=== PATIENT | male | born 1980 | race Caucasian/White ===

== ENCOUNTER 2024-09-21 07:35 | Inpatient (IN) | payer BC, SELFPAY ==
[2024-09-21] VITALS (25 sets, daily range): BP systolic 85–142; BP diastolic 59–88; PULSE 81–104; RESP 16–24; TEMP 35.3–37.8; O2SAT 89–97; BMI 50.1
--- NOTE | 2024-09-21 07:55 | CRLHL7_ITS ---
For Patients: As a result of the Century Cures Act, medical imaging exams and procedure reports are released immediately into your electronic medical record. You may view this report before your referring provider. If you have questions, please contact your health care provider. INDICATION: Abdominal pain COMPARISON: Portions of a June 18, 2015 study. TECHNIQUE: CT examination of the abdomen and pelvis was performed following the uneventful intravenous administration of 150 cc of Isovue 370. Thin section axial images were obtained from the lung bases through the pubic symphysis. Oral contrast was not administered. Please note that all CT scans at this facility use dose modulation, iterative reconstruction, and/or weight-based dosing when appropriate to reduce radiation dose to as low as reasonably achievable. FINDINGS: LUNG BASES: The lung bases as visualized appear normal.The heart size is normal at the lung bases. LIVER/BILIARY SYSTEM:Enlarged fatty infiltrated liver.No focal mass or biliary ductal dilation. There is probably a faintly seen gallstone within the gallbladder. This was more apparent on the prior study. No evidence of acute cholecystitis or common duct obstruction. ADRENALS: Probably benign small adrenal nodules. Is slightly more prominent than previously. KIDNEYS, URETERS and BLADDER:Normal-sized kidneys. Urolithiasis but no evidence current or recent obstructive uropathy. The bladder is decompressed but otherwise unremarkable in appearance SPLEEN:Normal appearance. PANCREAS: Appears normal. RETROPERITONEUM and MESENTERY: There is mesenteric lymphadenopathy and a significant inflammatory process in the mesentery. A collection is identified in the central mesentery closely associated with a loop of small bowel, probably jejunum. The jejunum is dilated and thickened in this area. The collection measures 7.8 x 6.5 by 4.9 centimeters. There is also fluid and air identified elsewhere within the mesentery and a small amount of free intraperitoneal air. The findings are consistent with a perforated viscus, probably a loop of jejunum. Etiology is uncertain. Do not see a diverticulum or a mass. GASTROINTESTINAL SYSTEM: There is no evidence of diverticulitis, colitis, mechanical obstruction, or appendicitis. The small bowel as visualized appears normal. PELVIS: No mass or adenopathy. OSSEOUS STRUCTURES and ABDOMINAL WALL: There is an age-appropriate appearance of the osseous structures.No significant abdominal wall defect. OTHER: No free fluid or free air. I discussed the above findings with Dr. Lowe at 8:50 a.m. on September 21, 2024 Impression: : 1. Adenopathy, inflammatory change, free air, free fluid and collection in the central mesentery. The collection measures 7.8 x 6.5 x 4.9 centimeters. Of note, the collection does not appear to be thick walled as might be seen in an organized collection. This is adjacent to and probably arising from adjacent jejunum. The jejunum and this area is thickened and dilated but I do not directly seen underlying pathology such as a diverticulum or tumor. The exact etiology of the presumed perforated jejunum with adjacent collection is not visible on the exam. Surgical consultation is advised. 2. Other nonacute appearing findings as above Please note that all CT scans at this facility use dose modulation, iterative reconstruction, and/or weight-based dosing when appropriate to reduce radiation dose to as low as reasonably achievable. Dictated by Stuart Karimi MD @ 09/21/2024 8:54:42 AM (Electronically Signed)
--- NOTE | 2024-09-21 07:57 | ED.ABDPAIN ---
HPI - Abdominal Pain General Chief Complaint: Abdominal Pain Stated Complaint: stomach pain/vomiting Time Seen by Provider: 09/21/24 07:45 History of Present Illness HPI narrative: Patient is a 44-year-old gentleman who presents with diffuse abdominal pain has been worsening for the last week. Became more severe more localized to the left lower quadrant last night. He has had some vomiting but no change in his bowels. He has had anorexia. He has had history of kidney stones but no blood in his urine. No fevers no chills no night sweats. Patient is had no shortness of breath or chest pain. Patient has had similar instances in the past which he related to kidney stones. Patient takes only lovu-hpt-puwhnfe medications. No recent travel or sick contacts. Related Data Home Medications ?Medication ?Instructions ?Recorded ?Confirmed No Known Home Medications 09/21/24 09/21/24 Allergies Allergy/AdvReac Type Severity Reaction Status Date / Time No Known Drug Allergies Allergy Verified 09/21/24 07:46 Review of Systems Status of ROS Reports: 10 or more systems reviewed and unremarkable except as noted in History and below PFSH PFS Social History Smoking Status: Current every day smoker What tobacco products do you use: cigarettes How often do you have a drink containing alcohol: never AUDIT-C Alcohol total score: 0 Non-prescribed substance use: denies use service: No Exam Narrative: Exam Narrative: EXAM GENERAL: Patient appears moderately uncomfortable. EYES: No scleral icterus. ENT: Tympanic membranes and oropharynx normal. THYROID: no thyroid nodules or thyromegaly. LYMPH: No supraclavicular or cervical lymphadenopathy. SKIN: Visible skin seen during exam normal or with benign process only. EXT: No dependent lower extremity pedal edema. HEART: Regular rate and rhythm with no murmurs, rubs, or gallops. LUNGS: Clear to auscultation bilaterally with no crackles or wheezes. ABD: Distended with hypoactive bowel sounds diffusely tender but no rebound. PSYCH: Good eye contact, speech is not pressured. Const: Vital Signs, click to edit/add: Vital Signs - 24 hr 09/21/24 07:38 Temperature 96.3 F L Pulse Rate [Pulse Oximeter] 104 H Respiratory Rate 22 Blood Pressure [Ri ght Upper Arm] 132/80 Pulse Oximetry 97 Oxygen Delivery Me thod Room Air Course Course ED Course: Patient seen and examined. CT abdomen pelvis lactate lipase CBC CMP UA pending. Vital Signs Vital signs: Initial Vital Signs Temperature 96.3 F L 09/21/24 07:38 Temperature Source Temporal Artery Scan 09/21/24 07:38 Pulse Rate 104 H 09/21/24 07:38 Respiratory Rate 22 09/21/24 07:38 Blood Pressure 132/80 09/21/24 07:38 Blood Pressure Mean 97 09/21/24 07:38 Blood Pressure Position Sitting 09/21/24 07:38 Pulse Oximetry 97 09/21/24 07:38 Oxygen Delivery Method Room Air 09/21/24 07:38 Vital Signs Temperature 96.3 F L 09/21/24 07:38 Pulse Rate 104 H 09/21/24 07:38 Respiratory Rate 22 09/21/24 07:38 Blood Pressure 132/80 09/21/24 07:38 Pulse Oximetry 97 09/21/24 07:38 Oxygen Delivery Method Room Air 09/21/24 07:38 Temperature 96.3 F L 09/21/24 07:38 Pulse Rate 104 H 09/21/24 07:38 Respiratory Rate 22 09/21/24 07:38 Blood Pressure 132/80 09/21/24 07:38 Pulse Oximetry 97 09/21/24 07:38 Oxygen Delivery Method Room Air 09/21/24 07:38 MDM - Abdominal Pain MDM Narrative Medical decision making narrative: Patient is a 44-year-old gentleman with no abdominal surgery history who presents with worsening abdominal pain over the last week. Pain became more severe this morning. As result he presented to the emergency room where his white blood cell count is elevated. His CT of the abdomen pelvis shows a perforated jejunum with a collection of fluid and air in the mesentery. I did obtain blood cultures as well. Patient was fluid resuscitated. I did review the case with General surgery and they will be taking him to the operating room. 3.375 g of Zosyn given. Lab Data Labs: Lab Results 09/21/24 Range/Units 08:15 WBC 18.92 H (4.50-11.00) K/uL RBC 5.49 (4.30-5.90) m/uL Hgb 15.9 (13.5-17.5) gm/dL Hct 46.7 (37.0-53.0) % MCV 85 (80-100) fL MCH 29 (26-34) pg MCHC 34 (32-36) gm/dL RDW Coeff of Janell 13.2 (11.5-15.5) % Plt Count 342 (140-440) K/uL Neut % (Auto) 82.9 H (42.0-72.0) % Lymph % (Auto) 8.4 L (20-44) % [place] % (Auto) 7.0 (0.0-11.0) % Eos % (Auto) 0.1 (0.0-7.0) % Baso % (Auto) 0.3 (0.0-3.0) % Neut # (Auto) 15.70 H (1.7-7.0) K/uL Lymph # (Auto) 1.60 (0.90-2.90) K/uL [place] # (Auto) 1.30 H (0.00-0.90) K/UL Eos # (Auto) 0.00 (0.00-0.50) K/uL Baso # (Auto) 0.10 (0.00-0.30) K/uL Abs Immat Gran (auto) 0.20 (0.00-0.30) K/uL Imm/Tot Granulo (auto) 1.3 % Sodium 135 (135-149) mmol/L Potassium 3.3 L (3.6-5.1) mmol/L Chloride 98 (96-114) mmol/L Carbon Dioxide 24 (20-32) mmol/L Anion Gap 13 (7-15) mEq/L BUN 21 (5-24) mg/dL Creatinine 1.2 (0.5-1.5) mg/dL Estimated Creat Clear 76.92 Estimated GFR 76 ml/min Glucose 211 H (60-115) mg/dL Lactate 3.0 H (0.5-1.9) mmol/L Calcium 8.5 (8.4-10.6) mg/dL Total Bilirubin 1.9 H (0.1-1.5) mg/dL AST 57 H (12-35) U/L ALT 92 H (4-50) U/L Alkaline Phosphatase 135 (40-150) U/L Total Protein 7.0 (6.0-8.3) g/dL Albumin 3.6 (3.3-5.0) g/dL Lipase < 10 L (23-300) U/L Discharge Plan Discharge Clinical Impression: Perforation bowel Patient Disposition: XFER to OR Condition: Stable Prescriptions: No Action No Known Home Medications Follow Up/Referrals: Provider,Not a Local [Primary Care Provider] -
[2024-09-21 08:27] LABS: Basophils Percent Auto 0.3 % (0.0-3.0); Eosinophils Percent Auto 0.1 % (0.0-7.0); Hematocrit 46.7 % (37.0-53.0); Hemoglobin* 15.9 gm/dL (13.5-17.5); Immature Granulocytes Pct Auto 1.3 %; Lymphocytes Percent Auto 8.4 % (20-44); Mean Corpuscular HGB Conc 34 gm/dL (32-36); Mean Corpuscular Hemoglobin 29 pg (26-34); Mean Corpuscular Volume 85 fL (80-100); Neutrophils Percent Auto 82.9 % (42.0-72.0); Platelet Count* 342 K/uL (140-440); RDW Coefficient of Variation % 13.2 % (11.5-15.5); Red Blood Count 5.49 m/uL (4.30-5.90); White Blood Count* 18.92 K/uL (4.50-11.00)
[2024-09-21 08:32] LABS: Slide Review Reflex No
[2024-09-21 08:43] LABS: Albumin* 3.6 g/dL (3.3-5.0); Chloride* 98 mmol/L (96-114); Potassium* 3.3 mmol/L (3.6-5.1); Sodium* 135 mmol/L (135-149)
[2024-09-21 08:45] LABS: Blood Urea Nitrogen* 21 mg/dL (5-24); Creatinine* 1.2 mg/dL (0.5-1.5); Est. Creatinine Clearance* 76.92; Estimated Glomerular Filt Rate 76 ml/min
[2024-09-21 08:46] LABS: Alanine Aminotransferase* 92 U/L (4-50); Alkaline Phosphatase* 135 U/L (40-150); Anion Gap 13 mEq/L (7-15); Aspartate Amino Transferase* 57 U/L (12-35); Bilirubin Total* 1.9 mg/dL (0.1-1.5); Calcium* 8.5 mg/dL (8.4-10.6); Carbon Dioxide* 24 mmol/L (20-32); Glucose* 211 mg/dL (60-115)
[2024-09-21 08:50] LABS: Lipase* < 10 U/L (23-300)
[2024-09-21] MEDS: PIPERACILLIN/TAZOBACTAM 3.375 GM in 0.9 % SODIUM CHLORIDE Mini-bag 100 ML IVPB ×3 (09:11→23:24)
[2024-09-21 10:26] LABS: Appearance Urine Clear (Clear); Bilirubin Urine 1+ (Negative); Blood Urine Trace-lysed (Negative); Color Urine Orange (Yellow); Glucose Urine Negative (Negative); Ketones Urine Negative (Negative); Leukocyte Esterase Urine Negative (Negative); Nitrite Urine Negative (Negative); Protein Urine 1+ (Negative); Specific Gravity Urine <= 1.005 (1.000-1.030); Urobilinogen Urine >=8.0 (0.2-1.0); pH Urine 5.5 (5.0-8.5)
--- NOTE | 2024-09-21 10:33 | PM.GSHP ---
History of Present Illness History of Present Illness Date Seen: 09/21/24 Chief complaint: stomach pain/vomiting Narrative: Filiberto Porter is a 44 year old male who presented to the emergency department with worsening abdominal pain, nausea and vomiting. He says that the pain started in his lower abdomen and felt similar to a UTI. He describes it as an aching pain that would come and go. Denies any pain with urination or fevers. Over last 24 hours the pain moved from in his lower abdomen up to above his belly button. It also became more severe. He has had a decrease in appetite over the last week. Yesterday he started vomiting. He has been unable to keep down any liquids for the last 12 hours. He has been taking ibuprofen and Tylenol intermittently for the pain. No other medications on a regular basis. Patient does not see a doctor regularly. He smokes on a daily basis. Does suffer from obesity, no known history of diabetes. His past surgical history is positive for a hernia repair as an infant. Review of Systems Status of ROS: Reports: 10 or more systems reviewed and unremarkable except as noted in History and below [facility] Social History Smoking Status: Current every day smoker What tobacco products do you use: cigarettes How often do you have a drink containing alcohol: never AUDIT-C Alcohol total score: 0 Non-prescribed substance use: denies use service: No Meds Home Medications and Allergies Home Medications ?Medication ?Instructions ?Recorded ?Confirmed ?Type No Known Home Medications 09/21/24 09/21/24 History Allergies Allergy/AdvReac Type Severity Reaction Status Date / Time No Known Drug Allergies Allergy Verified 09/21/24 07:46 Exam Narrative: Exam Narrative: General: Alert and oriented, no acute distress. Nontoxic Respiratory: Maintained on room air, equal breath rise CV: Well perfused Abdomen: Obese abdomen, soft, some tenderness to palpation. No guarding or rebound. Const: Vital Signs, click to edit/add: Vital Signs - 24 hr 09/21/24 07:38 09/21/24 09:02 Temperature 96.3 F L 98.8 F Pulse Rate [Pulse Oximeter] 104 H 94 Respiratory Rate 22 18 Blood Pressure [Ri ght Upper Arm] 132/80 142/88 H Pulse Oximetry 97 94 Oxygen Delivery Me thod Room Air Room Air Results Results Labs: Leukocytosis (18). Lactate elevated at 3.00. Hyperglycemic, 211. Liver enzymes significant for elevated total bilirubin 1.[address] scan report/results: report reviewed and image reviewed Progress Note:A&P Assessment and plan (1) Perforation bowel: Status: Acute Assessment and Plan: Patient is a 44 male with past medical history significant for morbid obesity and daily smoking, who has clinical workup and exam consistent with perforated viscus. CT scan does show small amount of free air and fluid. There is a large inflammatory mass within the mesentery and thickened portion of jejunum, which could be a likely source. Recommend patient proceed emergently to the operating room. Risks and benefits of the procedure were discussed at length with the patient and his mom. This included, but was not limited to: Bleeding, infection, risk of injury to surrounding structures, the possibility of not identifying the source and need for additional procedures, postop complications such as pneumonia, [place], clot and stroke. Will plan for an exploratory laparotomy, possible small-bowel resection. The patient had time to ask all questions and concerns before agreeing to proceed. Plan -NPO, IV fluids -received IV Zosyn in the emergency department -emergently going to the OR for exploratory laparotomy
[2024-09-21 10:41] LABS: Amorphous Sediment Urine Few; Bacteria Urine Few; RBC Urine 0-2 (0-2); Squamous Epithelial Cell Urine Few (None-Few)
[2024-09-21] MEDS: LACTATED RINGERS 1000 ML 1,000 ML 125 ML IV ×3 (10:53→18:43)
--- NOTE | 2024-09-21 11:46 | W.PM.NB ---
Nerve Block Nerve Block Time Seen by Provider: 11:10 Date Seen: 09/21/24 Type of block requested by surgeon for post-operative analgesia: TAP Side: bilateral Time out performed: Yes Verification of patient name: Yes Verification of date of : Yes Site marking: site marked Name of person performing procedure: Remberto Potter Continuous monitoring Was continuous monitoring of O2 sat, B/P, pest control service representative, recorded every 15 minutes?: Yes Procedure Checklist: sterile prep, needles and gloves Ultrasound guided. Images saved: Yes Medications given in 5ml increments after negative aspiration: Marcaine %: 0.25 mL: 40 Needle gauge: 20 and Exparel mL: 20 Needle gauge: 20 Patient tolerated procedure well: Yes Additional comments: Injected in 5ml increments after negative aspiration Block Charges Block Charge (with Pro Fee): TAP Bilateral Use of Ultrasound Machine for Block: Yes- US Guidance/pain block
--- NOTE | 2024-09-21 12:54 | SUR.OPER ---
Per surgeon, update call was made to patients Aunt Machelle, update given on progress of surgery.
--- NOTE | 2024-09-21 15:14 | SUR.OPER ---
Per surgeon, update call was made to patients Aunt Machelle, update given on progress of surgery.
--- NOTE | 2024-09-21 15:58 | PM.GSPRC ---
Operative Note Date of procedure: 09/21/24 Pre-op diagnosis: Perforated viscus Post-op diagnosis: Perforated sigmoid colon Type of Procedure: 1. Exploratory laparotomy 2. Sigmoidectomy 3. End colostomy 4. Identification of perfusion with ICG Indications: Patient is a 44-year-old male who presented to the emergency department with worsening abdominal pain, nausea and vomiting. Clinical workup was obtained with CT scan showing intra-abdominal air and fluid consistent with perforated viscus. Risks and benefits of operative intervention were discussed at length with the patient. Risks included but was not limited to: Bleeding, infection, risk of damage to surrounding structures, possible need for additional procedures and postoperative complications such as pneumonia, pulmonary emboli or [place]. All questions and concerns were addressed with the patient agreeing to proceed. Procedure Description: After discussing the risks and benefits of the procedure, the patient signed informed consent.? The operative site was marked and the patient was brought to the operating room and placed on the operating table in supine position.? Care was taken to pad the patient's pressure points.?? The patient was then intubated by anesthesia.? A Adam was placed under sterile conditions? The operative site was then prepped and draped in the usual sterile fashion.? A time-out was then performed. A midline incision was made with a 10 blade scalpel. Dissection was carried through subcutaneous tissue with cautery. The fascia was incised sharply. The peritoneum was grasped and entered with Metzenbaum scissors. A large amount of purulent material was within the abdomen. The incision was extended superior and inferior to allow for adequate visualization. A large piece of omentum was draped over the small bowel. This was retracted cephalad. The Omni retractor was brought onto the operative field to assist with visualization. The small bowel was diffusely dilated with fibrinous exudate on various portions. Some inflammatory adhesions were present between inner loops of bowel. These were bluntly dissected free. Within the pelvis was an adherent piece of jejunum that was dilated and edematous. Upon breaking up the adhesions around this loop of small bowel an abscess cavity was entered and a large amount of purulent material removed. The small bowel was carefully examined and appeared intact. The inferior wall of the abscess cavity was inflamed sigmoid colon. There was some necrotic epiploic appendages and a perforation of the colon identified. The small bowel was then run from ligament of Treitz to ileocecal valve. There was fibrinous exudate throughout the small bowel. The proximal jejunum was dilated and erythematous, with no obvious necrosis and no perforation. No other areas of injury were identified. An NG tube was placed by Anesthesia. The anterior aspect of the stomach was palpated and NG tube placement confirmed. The small bowel was then packed in the right upper quadrant and I began dissecting out the sigmoid colon. The lateral abdominal wall inflammatory adhesions were carefully dissected free with cautery. I incised the lateral peritoneum and dissected up the white line of Toldt. Dissection was carried up to the descending colon. I was unable to visualize the splenic flexure secondary to the patient's body habitus. The peritoneum was incised into the pelvis to the superior rectum. Care was taken to stay close to the colon. The ureter was not visualized. A distal portion of the rectum that was free from disease was identified as a point of transection. Using cautery an incision was made on the mesenteric border. There was an abundant amount of epiploic fat on the colon. Some of this was removed to clear a segment for transection. A contour stapler was then brought onto the field and placed on the identified portion of the superior rectum. The stapler was fired and staple line of the rectum inspected. The tissue was healthy in appearance and hemostatic. The sigmoid colon was carefully retracted cephalad and the underlying mesentery ligated with the LigaSure device. A few pinpoint areas of bleeding were controlled with 3-0 Vicryl stitches. Any identified larger vessels of the mesentery were doubly ligated with 2-0 silk suture. In order to identify a proximal point of transection I decided to proceed with a perfusion study using ICG. The laparoscopic equipment was brought onto the operative field. The operating room lights were turned down and the camera turned on to identify ICG fluorescence. Anesthesia administered the indocyanine green. The colon then demonstrated perfusion up to a point just distal to the diseased colon that had been dissected free. A 3 0 silk stitch was placed on an adjacent epiploic appendage to identify the point of transection. A linear 80 mm stapler was then brought onto the operative field and the proximal aspect of the sigmoid colon transected. The specimen was marked with a stitch on the distal end and sent for pathology. Using 4 L of warm saline the abdomen was irrigated thoroughly. A place was marked on the patient's left lateral abdominal wall for creation of an ostomy. A Myles was used to grasp the overlying skin and a cheesh-na made with cautery. Dissection was carried down through subcutaneous tissue onto the anterior fascia. The anterior fascia was then incised in a cruciate manner. The underlying muscle was partially dissected and a cruciate incision was made on the posterior fascia. Due to the patient's body habitus, the colon was difficult to feed through the abdominal wall. A small Hiram wound retractor was placed in the incision, which allowed the proximal end of the transected bowel to be brought through the incision. The Hiram wound retractor was then cut and removed in 1 piece. The colon was secured in place with 3 interrupted 2 0 Vicryl stitches of colon wall to anterior fascia. Prior to maturation of the colostomy I closed the midline incision was closed with 2 running 0 Maxon sutures. The subcutaneous tissue was reapproximated with several interrupted 2 Vicryl stitches. The skin was closed with a skin stapler. Sterile dressings were applied. The staple line on the colostomy was removed. The colon was flushed to the skin, so unable to be brooked for eversion. It was matured circumferentially with several interrupted 3-0 Vicryl stitches. An ostomy appliance was then applied. ? The patient was then woken and transported to the recovery area in stable condition. ? The patient tolerated the procedure well. Findings: Sigmoid colon perforation with associated abscess. Modifier 22 applied to the case secondary to difficulty of the procedure and patient's morbid obesity. Anesthesia: GETA Surgeon: Shaista Frank MD Estimated blood loss (mL): 100 Additional Specimen Information: Sigmoid colon Condition: stable Disposition: PACU
--- NOTE | 2024-09-21 16:11 | P.ANES_ITS ---
Anesthesia Charges Start Date/Time Anesthesia Start Date: 09/21/24 Anesthesia Start Time: 10:53 Stop Date/Time Anesthesia Stop Date: 09/21/24 Anesthesia Stop Time: 16:00 Summary Emergency: INTELLIGENCE SENIOR SERGEANT Coding CPT Codes CPT Codes: ANESTH SURG UPPER ABDOMEN - 22790 ([id number]) P3 - PATIENT W/SEVERE SYS DISEASE, QZ - INTELLIGENCE SENIOR SERGEANT SVC W/O INSOLE RASPER BY Additional Codes: Summary - Emergency: INTELLIGENCE SENIOR SERGEANT ([id number])
--- NOTE | 2024-09-21 16:11 | W.ANESCHARGE ---
Anesthesia Charges Start Date/Time Anesthesia Start Date: 09/21/24 Anesthesia Start Time: 10:53 Stop Date/Time Anesthesia Stop Date: 09/21/24 Anesthesia Stop Time: 16:00 Summary Emergency: NARROW GAUGE OPERATOR Coding CPT Codes CPT Codes: ANESTH SURG UPPER ABDOMEN - 63271 ([id number]) P3 - PATIENT W/SEVERE SYS DISEASE, QZ - NARROW GAUGE OPERATOR SVC W/O NURSE ANESTHETIST BY Additional Codes: Summary - Emergency: NARROW GAUGE OPERATOR ([id number])
--- NOTE | 2024-09-21 17:13 | RESP.RT ---
Pt to unit. PACU reports Nahomy score of 9. Pt on 6L CFM for oxygen. RR 16 and heavy, forced exhalation. SPO2 on RA is 90%, PT reports he has not had a sleep study. Spoke with provider and will get a VBG for baseline, and to assist with plan overnight. BBS decreased at bases. Pt will cough on demand.
[2024-09-21 17:30] LABS: HCO3 VBG 24 mmol/L (21-28); PCO2 VBG 36 mmHG (40-50); PO2 VBG 58.4 mmHG (25-47)
--- NOTE | 2024-09-21 17:45 | PM.IMCN1 ---
Date of Consult Patient: Other (none) Consult date: 09/21/24 Requesting Physician: General Surgery Primary Care Provider: Not a Local Provider Consult Narrative Reason for consult: obesity, possible BECKY Narrative: Filiberto Porter is a 44 year old male who has not been to a doctor in years who I am seeing in consultation immediately post op from an exploratory laparotomy with sigmoidectomy and end colostomy by Dr. Frank for perforated viscus. He is obese and tells me that he has a history of hypertension, but has not seen a doctor or taken anything for this in years. He also has a low potassium and elevated LFTs today. He had been having pain in his lower abdomen, coming go a became more severe and cause decreased appetite along with 1 emesis. He has not had any fevers or chills. Denies urinary symptoms. He tells me he still feels groggy after anesthesia and would like to go back to sleep. Review of Systems Status of ROS: Reports: 6 or more systems reviewed and unremarkable except as noted in History and below PFSH [facility] Medical History (Updated 09/21/24 @ 18:11 by Kayla Weeks MD) Obesity ?E66.9 - Obesity, unspecified (ICD-10) Hypertension ?I10 - Essential (primary) hypertension (ICD-10) Surgical History (Updated 09/21/24 @ 17:54 by Kayla Weeks MD) S/P exploratory laparotomy (09/21/24) ?Z98.890 - Other specified postprocedural states (ICD-10) Social History (Updated 09/21/24 @ 17:55 by Kayla Weeks MD) Narrative: Patient's mother, Sofya, is here with him. Denies alcohol or recreational drug use. Smokes 1/2ppd Smoking Status: Current every day smoker What tobacco products do you use: cigarettes How often do you have a drink containing alcohol: never AUDIT-C Alcohol total score: 0 Non-prescribed substance use: denies use service: No Meds Home Medications and Allergies Home Medications ?Medication ?Instructions ?Recorded ?Confirmed ?Type No Known Home Medications 09/21/24 09/21/24 History Allergies Allergy/AdvReac Type Severity Reaction Status Date / Time No Known Drug Allergies Allergy Verified 09/21/24 07:46 Exam Narrative: Exam Narrative: General: No acute distress. Awake alert oriented x3. Obese. HEENT: Normocephalic atraumatic, pupils equally round and reactive to light and accommodation. Oropharynx clear. Mucous membranes are moist. No cervical lymphadenopathy, thyromegaly or carotid bruits. Cardiovascular: Regular rate and rhythm. No murmurs, gallops, or rubs. Chest: No increased work of breathing. Upper airway wheeze, no lower airway wheezing. No crackles. Abdomen: Postsurgical abdomen, bandages are clean, dry and intact. Ostomy is pink. Extremities: No edema, no cyanosis or clubbing. Skin: No jaundice, no pallor, no rashes on visible skin. Const: Vital Signs, click to edit/add: Vital Signs - 24 hr 09/21/24 07:38 09/21/24 09:02 09/21/24 15:55 Temperature 96.3 F L 98.8 F 100.0 F H Pulse Rate 90 Pulse Rate [Pulse Oximeter] 104 H 94 Respiratory Rate 22 18 22 Blood Pressure 118/84 Blood Pressure [Ri ght Upper Arm] 132/80 142/88 H Pulse Oximetry 97 94 96 Oxygen Delivery Me thod Room Air Room Air OxyMask Oxygen Flow Rate 6 09/21/24 16:00 09/21/24 16:05 09/21/24 16:10 Temperature Pulse Rate 89 90 91 Pulse Rate [Pulse Oximeter] Respiratory Rate 22 24 22 Blood Pressure 94/73 85/59 L 100/64 Blood Pressure [Ri ght Upper Arm] Pulse Oximetry 96 95 94 Oxygen Delivery Me thod OxyMask OxyMask OxyMask Oxygen Flow Rate 6 6 6 09/21/24 16:15 09/21/24 16:21 Temperature Pulse Rate 90 92 Pulse Rate [Pulse Oximeter] Respiratory Rate 22 24 Blood Pressure 99/71 96/73 Blood Pressure [Ri t Upper Arm] Pulse Oximetry 96 94 Oxygen Delivery Me thod OxyMask OxyMask Oxygen Flow Rate 6 6 Labs Labs: Short CBC 09/21/24 Range/Units 08:15 WBC 18.92 H (4.50-11.00) K/uL Hgb 15.9 (13.5-17.5) gm/dL Hct 46.7 (37.0-53.0) % Plt Count 342 (140-440) K/uL BMP 09/21/24 08:15 Sodium 135 Potassium 3.3 L Chloride 98 Carbon Dioxide 24 BUN 21 Creatinine 1.2 Glucose 211 H Calcium 8.5 Liver Function 09/21/24 Range/Units 08:15 Total Bilirubin 1.9 H (0.1-1.5) mg/dL AST 57 H (12-35) U/L ALT 92 H (4-50) U/L Alkaline Phosphatase 135 (40-150) U/L Albumin 3.6 (3.3-5.0) g/dL Urine 09/21/24 Range/Units Unknown Urine Color [place] A (Yellow) Urine Appearance Clear (Clear) Urine pH 5.5 (5.0-8.5) Ur Specific [place] <= 1.005 (1.000-1.030) Urine Protein 1+ A (Negative) Urine Glucose (UA) Negative (Negative) Ordering Physician: Mumtaz Lowe M.D. Date of Service: 09/21/24 Procedure(s): CT abdomen pelvis w con Accession Number(s): [id number] cc: Provider,Not a Local; Mumtaz Lowe M.D.~ For Patients: As a result of the Cures Act, medical imaging exams and procedure reports are released immediately into your electronic medical record. You may view this report before your referring provider. If you have questions, please contact your health care provider. INDICATION: Abdominal pain COMPARISON: Portions of a June 18, 2015 study. TECHNIQUE: CT examination of the abdomen and pelvis was performed following the uneventful intravenous administration of 150 cc of Isovue 370. Thin section axial images were obtained from the lung bases through the pubic symphysis. Oral contrast was not administered. Please note that all CT scans at this facility use dose modulation, iterative reconstruction, and/or weight-based dosing when appropriate to reduce radiation dose to as low as reasonably achievable. FINDINGS: LUNG BASES: The lung bases as visualized appear normal.The heart size is normal at the lung bases. LIVER/BILIARY SYSTEM:Enlarged fatty infiltrated liver.No focal mass or biliary ductal dilation. There is probably a faintly seen gallstone within the gallbladder. This was more apparent on the prior study. No evidence of acute cholecystitis or common duct obstruction. ADRENALS: Probably benign small adrenal nodules. Is slightly more prominent than previously. KIDNEYS, URETERS and BLADDER:Normal-sized kidneys. Urolithiasis but no evidence current or recent obstructive uropathy. The bladder is decompressed but otherwise unremarkable in appearance SPLEEN:Normal appearance. PANCREAS: Appears normal. RETROPERITONEUM and MESENTERY: There is mesenteric lymphadenopathy and a significant inflammatory process in the mesentery. A collection is identified in the central mesentery closely associated with a loop of small bowel, probably jejunum. The jejunum is dilated and thickened in this area. The collection measures 7.8 x 6.5 by 4.9 centimeters. There is also fluid and air identified elsewhere within the mesentery and a small amount of free intraperitoneal air. The findings are consistent with a perforated viscus, probably a loop of jejunum. Etiology is uncertain. Do not see a diverticulum or a mass. GASTROINTESTINAL SYSTEM: There is no evidence of diverticulitis, colitis, mechanical obstruction, or appendicitis. The small bowel as visualized appears normal. PELVIS: No mass or adenopathy. OSSEOUS STRUCTURES and ABDOMINAL WALL: There is an age-appropriate appearance of the osseous structures.No significant abdominal wall defect. OTHER: No free fluid or free air. I discussed the above findings with Dr. Lowe at 8:50 a.m. on September 21, 2024 Impression: : 1. Adenopathy, inflammatory change, free air, free fluid and collection in the central mesentery. The collection measures 7.8 x 6.5 x 4.9 centimeters. Of note, the collection does not appear to be thick walled as might be seen in an organized collection. This is adjacent to and probably arising from adjacent jejunum. The jejunum and this area is thickened and dilated but I do not directly seen underlying pathology such as a diverticulum or tumor. The exact etiology of the presumed perforated jejunum with adjacent collection is not visible on the exam. Surgical consultation is advised. 2. Other nonacute appearing findings as above Please note that all CT scans at this facility use dose modulation, iterative reconstruction, and/or weight-based dosing when appropriate to reduce radiation dose to as low as reasonably achievable. Dictated by Stuart Karimi MD @ 09/21/2024 8:54:42 AM (Electronically Signed) Assessment and Plan Assessment and plan (1) S/P exploratory laparotomy: Problem comment: - Dr. Frank, perforated viscous, Sigmoidectomy, End colostomy, Identification of perfusion with ICG - routine post op cares Status: Acute (2) Perforation bowel: Status: Acute (3) Obesity: Status: Acute (4) Hypokalemia: Problem comment: - recheck, replace if low Status: Acute (5) Elevated LFTs: Status: Acute (6) Blood glucose elevated: Problem comment: - random check, no h/o DM, does have risk factor of obesity, check HgbA1c Status: Acute
[2024-09-21 18:56] LABS: Potassium* 3.5 mmol/L (3.6-5.1)
[2024-09-21] MEDS: LACTATED RINGERS 1000 ML 1,000 ML 500 ML IV (20:19)
[2024-09-21] MEDS: HYDROmorphone 0.5 mg/0.5 ml inj IVP (21:27)
[2024-09-21] MEDS: 0.9 % SODIUM CHLORIDE 250 ml IV (23:24)
[2024-09-22] VITALS (27 sets, daily range): BP systolic 111–166; BP diastolic 73–100; PULSE 89–114; RESP 16–22; TEMP 35.6–37.2; O2SAT 88–95
[2024-09-22] MEDS: LACTATED RINGERS 1000 ML 1,000 ML 125 ML IV (03:46)
[2024-09-22 04:36] LABS: Basophils Percent Auto 0.2 % (0.0-3.0); Hematocrit 45.2 % (37.0-53.0); Immature Granulocytes Pct Auto 4.1 %; Lymphocytes Percent Auto 10.3 % (20-44); Mean Corpuscular HGB Conc 33 gm/dL (32-36); Mean Corpuscular Hemoglobin 29 pg (26-34); Mean Corpuscular Volume 86 fL (80-100); Monocytes Percent Auto 4.7 % (0.0-11.0); Neutrophils Percent Auto 80.7 % (42.0-72.0); Platelet Count* 348 K/uL (140-440); RDW Coefficient of Variation % 13.9 % (11.5-15.5); Red Blood Count 5.26 m/uL (4.30-5.90); White Blood Count* 20.82 K/uL (4.50-11.00)
[2024-09-22 04:38] LABS: Slide Review Reflex No
[2024-09-22] MEDS: PIPERACILLIN/TAZOBACTAM 3.375 GM in 0.9 % SODIUM CHLORIDE Mini-bag 100 ML IVPB (04:44)
[2024-09-22 04:50] LABS: Albumin* 2.9 g/dL (3.3-5.0); Chloride* 102 mmol/L (96-114); Potassium* 3.3 mmol/L (3.6-5.1); Sodium* 137 mmol/L (135-149)
[2024-09-22 04:53] LABS: Alanine Aminotransferase* 56 U/L (4-50); Alkaline Phosphatase* 108 U/L (40-150); Anion Gap 10 mEq/L (7-15); Aspartate Amino Transferase* 48 U/L (12-35); Bilirubin Direct* 0.8 mg/dL (0.0-0.5); Blood Urea Nitrogen* 36 mg/dL (5-24); Calcium* 7.6 mg/dL (8.4-10.6); Carbon Dioxide* 25 mmol/L (20-32); Creatinine* 2.8 mg/dL (0.5-1.5); Est. Creatinine Clearance* 32.97; Estimated Glomerular Filt Rate 27 ml/min; Glucose* 172 mg/dL (60-115)
[2024-09-22 06:27] LABS: Hemoglobin A1C* 6.6 % (0-5.6)
--- NOTE | 2024-09-22 06:40 | PC.NURSE ---
Addendum entered by Gladis Mcneal RN 09/22/24 06:45: Tele in place with NSR with BBB noted. Addendum entered by Gladis Mcneal RN 09/22/24 06:44: Pt noted to have bilateral expiratory wheezing to upper lobes bilaterally which was also noted by (pt has hx of smoking). Original Note: End of shift note [id number]: Pt A&Ox4 and able to make needs known. NG in place to R nare measures at 59 cm and hooked up to LIS per order. PRN Dilaudid administered for abdominal pain with repositioning in bed. Pt refusing PRN pain medication this morning when offered stating his pain is minimal. Scant amount of blood noted in ostomy, otherwise no output via ostomy bag this shift. Pt noted to have removed IV previously in place to R hand while he was rolling in bed and reaching for ice chips. IV to L hand remains patent and in place. Pt noted to have a lot of moisture (perspiration) to skin with adhesive dressings having difficulty to adhere. Ostomy in place to LLQ and midline dressing to abdomen noted to be C/D/I. SCDs worn to BLEs. Pt has been afebrile. He was started on 1 LPM of oxygen via Oxymask last evening after being given dose of PRN Dilaudid and later falling asleep as O2 sat was 89% on RA. He has been denying nausea when asked. LR running per order. NPO diet order in place- pt requesting ice chips and tolerating. Adam catheter in place. 1L bolus of LR given last evening after newspaper writer reported B/P of 93/78 and low UO to MD Weeks. Pt is able to assist with repositioning in bed. HOB elevated due to NG tube in place. NG tube noted to have brown drainage. Bed alarm on and call light within reach. ?
[2024-09-22] MEDS: ONDANSETRON 2 MG/ML inj IVP (07:19)
--- NOTE | 2024-09-22 07:46 | CRLHL7_ITS ---
For Patients: As a result of the Century Cures Act, medical imaging exams and procedure reports are released immediately into your electronic medical record. You may view this report before your referring provider. If you have questions, please contact your health care provider. INDICATION: Wheezing COMPARISON: None TECHNIQUE: Single view study FINDINGS: As discussed below IMPRESSION: 1. Very limited due to poor inspiratory effort and soft tissue attenuation factors. 2. The heart appears to be enlarged. 3. A tube traversing esophagus. Exact terminus is not visible on the image. 4. Right lung and right pleural space grossly normal. Can not exclude left basilar airspace disease. Dictated by Stuart Karimi MD @ 09/22/2024 8:15:06 AM (Electronically Signed)
[2024-09-22] MEDS: 0.9 % SODIUM CHLORIDE 500 ML 500 ML IV (07:55)
[2024-09-22 08:28] LABS: Lactate* 1.9 mmol/L (0.5-1.9)
[2024-09-22] MEDS: BUDESONIDE 0.5 MG/2ML NEB NEB ×2 (08:45→20:55)
--- NOTE | 2024-09-22 08:55 | P.IMPN_ITS ---
Assessment and Plan Assessment and plan (1) JOE (acute kidney injury): Problem comment: Creatinine elevated at 2.8 on day 1 status post his surgery Urine output low to borderline Ordered a bolus of IV fluids 500 mL, will continue IV maintenance at 1:25 a.m. to 150 mL/hour. Patient has a catheter and no history of prostate problems Will order a renal ultrasound if he does not improve by tomorrow. Status: Acute (2) S/P exploratory laparotomy: Problem comment: - Dr. Frank, perforated viscous, Sigmoidectomy, End colostomy, Identification of perfusion with ICG - routine post op cares - general surgery following up Status: Acute (3) Perforation bowel: Status: Acute (4) Wheezing: Problem comment: History of smoking Ordered nebulizer with scheduled budesonide Will monitor Status: Acute (5) Obesity: Status: Acute (6) Hypokalemia: Problem comment: - recheck, replace if low Status: Acute (7) Elevated LFTs: Status: Acute (8) Blood glucose elevated: Problem comment: - random check, no h/o DM, does have risk factor of obesity, check HgbA1c Status: Acute Total Time Spent Total Time Spent: Today I spent 50 minutes seeing the patient, reviewing Expanse and EPIC notes/diagnostics, discussing the care plan with our care time that includes social work, PT/OT, pharmacy, RT, detention and documenting my impressions and plan in the medical record. Subjective Date Seen: 09/22/24 Interval history: Patient seen and examined at bedside today. He states that his pain is controlled with pain medication. He states that his shortness of breath is mild and he was off oxygen satting in the 90s. He has history of smoking and he is not following with any primary care physician. Exam Narrative: Exam Narrative: Physical exam GENERAL: Comfortable, no acute distress. Off O2. HEAD AND NECK: Atraumatic, normocephalic. NG in place. CARDIOVASCULAR: tachycardic, RRR. Normal S1, S2. No murmurs. RESPIRATORY: Clear to auscultation B/L. Good air entry B/L. +ve wheezes. GASTROINTESTINAL: Obese, Stoma retracted. Mucosa sloughed. NEUROLOGY: Alert, awake, oriented X 3. Normal speech. PSYCH: Normal mood, normal affect. Const: Vital Signs, click to edit/add: Vital Signs - 24 hr 09/21/24 09:02 09/21/24 15:55 09/21/24 16:00 Temperature 98.8 F 100.0 F H Pulse Rate 90 89 Pulse Rate [Left P ulse Oximeter] Pulse Rate [Pulse Oximeter] 94 Respiratory Rate 18 22 22 Blood Pressure 118/84 94/73 Blood Pressure [R forearm] Blood Pressure [Ri ght Upper Arm] 142/88 H Pulse Oximetry 94 96 96 Oxygen Delivery Me thod Room Air OxyMask OxyMask Oxygen Flow Rate 6 6 09/21/24 16:05 09/21/24 16:10 09/21/24 16:15 Temperature Pulse Rate 90 91 90 Pulse Rate [Left P ulse Oximeter] Pulse Rate [Pulse Oximeter] Respiratory Rate 24 22 22 Blood Pressure 85/59 L 100/64 99/71 Blood Pressure [R forearm] Blood Pressure [Ri ght Upper Arm] Pulse Oximetry 95 94 96 Oxygen Delivery Me thod OxyMask OxyMask OxyMask Oxygen Flow Rate 6 6 6 09/21/24 16:21 09/21/24 16:30 09/21/24 16:45 Temperature 97 F L Pulse Rate 92 91 84 Pulse Rate [Left P ulse Oximeter] Pulse Rate [Pulse Oximeter] Respiratory Rate 24 20 20 Blood Pressure 96/73 109/70 101/77 Blood Pressure [R forearm] Blood Pressure [Ri t Upper Arm] Pulse Oximetry 94 95 92 Oxygen Delivery Me thod OxyMask OxyMask Room Air Oxygen Flow Rate 6 4 09/21/24 17:00 09/21/24 17:15 09/21/24 17:30 Temperature Pulse Rate 88 85 87 Pulse Rate [Left P ulse Oximeter] Pulse Rate [Pulse Oximeter] Respiratory Rate 18 18 18 Blood Pressure 88/73 L 98/69 104/65 Blood Pressure [R forearm] Blood Pressure [Ri ght Upper Arm] Pulse Oximetry 91 92 91 Oxygen Delivery Me thod Room Air Room Air Room Air Oxygen Flow Rate 09/21/24 18:00 09/21/24 19:00 09/21/24 19:19 Temperature 97 F L 95.6 F L Pulse Rate 81 90 88 Pulse Rate [Left P ulse Oximeter] Pulse Rate [Pulse Oximeter] Respiratory Rate 18 16 18 Blood Pressure 103/71 107/66 110/74 Blood Pressure [R forearm] Blood Pressure [Ri ght Upper Arm] Pulse Oximetry 92 94 92 Oxygen Delivery Me thod Room Air Room Air Room Air Oxygen Flow Rate 09/21/24 19:30 09/21/24 19:31 09/21/24 20:00 Temperature 95.7 F L Pulse Rate 88 88 Pulse Rate [Left P ulse Oximeter] 90 Pulse Rate [Pulse Oximeter] Respiratory Rate 16 18 Blood Pressure 93/78 Blood Pressure [R forearm] Blood Pressure [Ri ght Upper Arm] Pulse Oximetry 93 Oxygen Delivery Me thod Room Air Oxygen Flow Rate 09/21/24 21:00 09/21/24 21:40 09/21/24 21:42 Temperature 99.1 F Pulse Rate 87 Pulse Rate [Left P ulse Oximeter] Pulse Rate [Pulse Oximeter] Respiratory Rate 16 Blood Pressure 112/73 Blood Pressure [R forearm] Blood Pressure [Ri ght Upper Arm] Pulse Oximetry 93 89 91 Oxygen Delivery Me thod Room Air Room Air OxyMask Oxygen Flow Rate 1 09/21/24 22:00 09/21/24 22:25 09/21/24 23:00 Temperature 99.1 F Pulse Rate 83 90 Pulse Rate [Left P ulse Oximeter] Pulse Rate [Pulse Oximeter] Respiratory Rate 16 16 Blood Pressure 122/74 Blood Pressure [R forearm] Blood Pressure [Ri ght Upper Arm] Pulse Oximetry 93 92 Oxygen Delivery Me thod OxyMask OxyMask Oxygen Flow Rate 1 1 09/21/24 23:00 09/22/24 00:10 09/22/24 02:00 Temperature 96.1 F L 97.1 F L Pulse Rate Pulse Rate [Left P ulse Oximeter] 89 89 90 Pulse Rate [Pulse Oximeter] Respiratory Rate 16 16 16 Blood Pressure Blood Pressure [R forearm] 113/76 124/80 Blood Pressure [Ri ght Upper Arm] Pulse Oximetry 93 91 Oxygen Delivery Me thod OxyMask OxyMask Oxygen Flow Rate 1 1 09/22/24 02:31 09/22/24 02:59 09/22/24 04:00 Temperature 98.1 F Pulse Rate 92 Pulse Rate [Left P ulse Oximeter] 90 95 Pulse Rate [Pulse Oximeter] Respiratory Rate 16 18 Blood Pressure Blood Pressure [R forearm] 117/82 Blood Pressure [Ri ght Upper Arm] Pulse Oximetry 94 Oxygen Delivery Me thod OxyMask Oxygen Flow Rate 1 03/31/25 06:00 09/22/24 07:30 09/22/24 07:45 Temperature 98.0 F 98.9 F Pulse Rate Pulse Rate [Left P ulse Oximeter] 98 104 H Pulse Rate [Pulse Oximeter] Respiratory Rate 18 22 22 Blood Pressure Blood Pressure [R forearm] 111/87 155/100 H Blood Pressure [Ri ght Upper Arm] Pulse Oximetry 94 95 90 Oxygen Delivery Me thod OxyMask Room Air Room Air Oxygen Flow Rate 1 09/22/24 07:45 09/22/24 07:50 Temperature Pulse Rate 101 H Pulse Rate [Left P ulse Oximeter] 101 H Pulse Rate [Pulse Oximeter] Respiratory Rate Blood Pressure Blood Pressure [R forearm] Blood Pressure [Ri ght Upper Arm] Pulse Oximetry Oxygen Delivery Me thod Oxygen Flow Rate Labs Labs: Laboratory Results - last 24 hr 09/21/24 09/21/24 09/21/24 08:15 17:23 17:45 WBC RBC Hgb Hct MCV MCH MCHC RDW Coeff of Janell Plt Count Neut % (Auto) Lymph % (Auto) [place] % (Auto) Eos % (Auto) Baso % (Auto) Neut # (Auto) Lymph # (Auto) [place] # (Auto) Eos # (Auto) Baso # (Auto) Abs Immat Gran (auto) Imm/Tot Granulo (auto) VBG pH 7.420 VBG pCO2 36 L VBG pO2 58.4 H VBG HCO3 24 Sodium Potassium 3.5 L Chloride Carbon Dioxide Anion Gap BUN Creatinine Estimated Creat Clear Estimated GFR Glucose Hemoglobin A1c 6.6 H Lactate Calcium Total Bilirubin Direct Bilirubin AST ALT Alkaline Phosphatase Total Protein Albumin Urine Color Urine Appearance Urine pH Ur Specific [place] Urine Protein Urine Glucose (UA) Urine Ketones Urine Blood Urine Nitrite Urine Bilirubin Urine Urobilinogen Ur Leukocyte Esterase Urine RBC Urine WBC Ur Squamous Epith Cells Amorphous Sediment Urine Bacteria Lab Acknowledgement Test Added 09/21/24 09/22/24 09/22/24 Unknown 04:16 07:51 WBC 20.82 H RBC 5.26 Hgb 15.0 Hct 45.2 MCV 86 MCH 29 MCHC 33 RDW Coeff of Janell 13.9 Plt Count 348 Neut % (Auto) 80.7 H Lymph % (Auto) 10.3 L [place] % (Auto) 4.7 Eos % (Auto) 0.0 Baso % (Auto) 0.2 Neut # (Auto) 16.80 H Lymph # (Auto) 2.10 [place] # (Auto) 1.00 H Eos # (Auto) 0.00 Baso # (Auto) 0.00 Abs Immat Gran (auto) 0.90 H Imm/Tot Granulo (auto) 4.1 VBG pH VBG pCO2 VBG pO2 VBG HCO3 Sodium 137 Potassium 3.3 L Chloride 102 Carbon Dioxide 25 Anion Gap 10 BUN 36 H Creatinine 2.8 H Estimated Creat Clear 32.97 Estimated GFR 27 Glucose 172 H Hemoglobin A1c Lactate 1.9 Calcium 7.6 L Total Bilirubin 1.0 Direct Bilirubin 0.8 H AST 48 H ALT 56 H Alkaline Phosphatase 108 Total Protein 6.0 Albumin 2.9 L Urine Color [place] A Urine Appearance Clear Urine pH 5.5 Ur Specific [place] <= 1.005 Urine Protein 1+ A Urine Glucose (UA) Negative Urine Ketones Negative Urine Blood Trace-lysed A Urine Nitrite Negative Urine Bilirubin 1+ A Urine Urobilinogen >=8.0 A Ur Leukocyte Esterase Negative Urine RBC 0-2 Urine WBC 2-5 Ur Squamous Epith Cells Few Amorphous Sediment Few A Urine Bacteria Few A Lab Acknowledgement
[2024-09-22] MEDS: HYDROmorphone 0.5 mg/0.5 ml inj IVP ×3 (09:02→23:11)
[2024-09-22] MEDS: SODIUM CHLORIDE 0.9 % (FLUSH) 10 ML SYRINGE 5 ML IVF ×2 (09:05→23:11)
--- NOTE | 2024-09-22 09:53 | NUTR.NU ---
RDN with MD consult for new ostomy. Patient admitted with abdominal pain, nausea and vomiting, found to have perforated bowel. He underwent an exploratory laparotomy 09/21/24 with a sigmoidectomy and end colostomy. Current diet is NPO. Not appropriate for diet education at this time. RDN will continue to monitor and attempt to provide diet education at later date when appropriate.
[2024-09-22 10:29] LABS: Creatine Kinase* 732 U/L (54-186)
[2024-09-22] MEDS: ERTAPENEM 0.5 GM in 0.9 % SODIUM CHLORIDE 100 ml 100 ML IVPB (10:56)
--- NOTE | 2024-09-22 11:49 | P.GSPN_ITS ---
Subjective Subjective Date Seen: 09/22/24 Interval history: Overnight, Filiberto's urine output has been low. He did get a bolus this morning. He was also noted to be wheezing and got a chest x-ray as well This showed limited evaluation with small lung volumes an enlarged cardiac silhouette. he states that his pain is controlled at rest. He really only has pain with movement. Exam Narrative: Exam Narrative: General: No acute distress CV: Mildly tachycardic with a heart rate of 104. Respiratory: Breathing nonlabored on room air HEENT: NG in place. Bilious output noted. Fourteen 50 out overnight since OR Urine: Slightly dark and cloudy concentrated urine noted in Adam bag Abdomen: Stoma is retracted. Mucosa has sloughed. Stoma overall appears hemorrhagic. Concerns for ischemia. Const: Vital Signs, click to edit/add: Vital Signs - 24 hr 09/21/24 15:55 09/21/24 16:00 09/21/24 16:05 Temperature 100.0 F H Pulse Rate 90 89 90 Pulse Rate [Left P ulse Oximeter] Respiratory Rate 22 22 24 Blood Pressure 118/84 94/73 85/59 L Blood Pressure [Le ft forearm] Blood Pressure [R forearm] Pulse Oximetry 96 96 95 Oxygen Delivery Me thod OxyMask OxyMask OxyMask Oxygen Flow Rate 6 6 6 09/21/24 16:10 09/21/24 16:15 09/21/24 16:21 Temperature Pulse Rate 91 90 92 Pulse Rate [Left P ulse Oximeter] Respiratory Rate 22 22 24 Blood Pressure 100/64 99/71 96/73 Blood Pressure [Le ft forearm] Blood Pressure [R forearm] Pulse Oximetry 94 96 94 Oxygen Delivery Me thod OxyMask OxyMask OxyMask Oxygen Flow Rate 6 6 6 09/21/24 16:30 09/21/24 16:45 09/21/24 17:00 Temperature 97 F L Pulse Rate 91 84 88 Pulse Rate [Left P ulse Oximeter] Respiratory Rate 20 20 18 Blood Pressure 109/70 101/77 88/73 L Blood Pressure [Le ft forearm] Blood Pressure [R forearm] Pulse Oximetry 95 92 91 Oxygen Delivery Me thod OxyMask Room Air Room Air Oxygen Flow Rate 4 09/21/24 17:15 09/21/24 17:30 09/21/24 18:00 Temperature 97 F L Pulse Rate 85 87 81 Pulse Rate [Left P ulse Oximeter] Respiratory Rate 18 18 18 Blood Pressure 98/69 104/65 103/71 Blood Pressure [Le ft forearm] Blood Pressure [R forearm] Pulse Oximetry 92 91 92 Oxygen Delivery Me od Room Air Room Air Room Air Oxygen Flow Rate 09/21/24 19:00 09/21/24 19:19 09/21/24 19:30 Temperature 95.6 F L Pulse Rate 90 88 Pulse Rate [Left P ulse Oximeter] 90 Respiratory Rate 16 18 16 Blood Pressure 107/66 110/74 Blood Pressure [Le ft forearm] Blood Pressure [R forearm] Pulse Oximetry 94 92 Oxygen Delivery Me od Room Air Room Air Oxygen Flow Rate 09/21/24 19:31 09/21/24 20:00 09/21/24 21:00 Temperature 95.7 F L 99.1 F Pulse Rate 88 88 87 Pulse Rate [Left P ulse Oximeter] Respiratory Rate 18 16 Blood Pressure 93/78 112/73 Blood Pressure [Le ft forearm] Blood Pressure [R forearm] Pulse Oximetry 93 93 Oxygen Delivery Me [facility] Room Air Room Air Oxygen Flow Rate 09/21/24 21:40 09/21/24 21:42 09/21/24 22:00 Temperature 99.1 F Pulse Rate 83 Pulse Rate [Left P ulse Oximeter] Respiratory Rate 16 Blood Pressure 122/74 Blood Pressure [Le ft forearm] Blood Pressure [R forearm] Pulse Oximetry 89 91 93 Oxygen Delivery Me od Room Air OxyMask OxyMask Oxygen Flow Rate 1 1 09/21/24 22:25 09/21/24 23:00 09/21/24 23:00 Temperature Pulse Rate 90 Pulse Rate [Left P ulse Oximeter] 89 Respiratory Rate 16 16 Blood Pressure Blood Pressure [Le ft forearm] Blood Pressure [R forearm] Pulse Oximetry 92 Oxygen Delivery Me od OxyMask Oxygen Flow Rate 1 09/22/24 00:10 09/22/24 02:00 09/22/24 02:31 Temperature 96.1 F L 97.1 F L Pulse Rate 92 Pulse Rate [Left P ulse Oximeter] 89 90 Respiratory Rate 16 16 Blood Pressure Blood Pressure [Le ft forearm] Blood Pressure [R forearm] 113/76 124/80 Pulse Oximetry 93 91 Oxygen Delivery Me od OxyMask OxyMask Oxygen Flow Rate 1 1 09/22/24 02:59 09/22/24 04:00 09/22/24 06:00 Temperature 98.1 F 98.0 F Pulse Rate Pulse Rate [Left P ulse Oximeter] 90 95 98 Respiratory Rate 16 18 18 Blood Pressure Blood Pressure [Le ft forearm] Blood Pressure [R forearm] 117/82 111/87 Pulse Oximetry 94 94 Oxygen Delivery Me thod OxyMask OxyMask Oxygen Flow Rate 1 1 09/22/24 07:30 09/22/24 07:45 09/22/24 07:45 Temperature 98.9 F Pulse Rate Pulse Rate [Left P ulse Oximeter] 104 H 101 H Respiratory Rate 22 22 Blood Pressure Blood Pressure [Le ft forearm] Blood Pressure [R forearm] 155/100 H Pulse Oximetry 95 90 Oxygen Delivery Me thod Room Air Room Air Oxygen Flow Rate 09/22/24 07:50 09/22/24 09:05 09/22/24 11:08 Temperature 98.3 F Pulse Rate 101 H Pulse Rate [Left P ulse Oximeter] 106 H 104 H Respiratory Rate 20 18 Blood Pressure Blood Pressure [Le ft forearm] 117/87 Blood Pressure [R forearm] 166/89 H Pulse Oximetry 90 92 Oxygen Delivery Me thod Room Air Room Air Oxygen Flow Rate Labs/Imaging Labs Labs: White blood cell count is slightly up today at 20. Hemoglobin stable at 15 Potassium 3.3 BUN 36 Creatinine 2.8 from 1.2 Blood glucose elevated at 172; hemoglobin A1c was 6.6 on admission Lactate is 1.9 from 3.0 yesterday Mild elevation of LFTs persist today though total bilirubin is improved to 1.0 from 1.9 yesterday CK elevated at 732 Albumin 2.9 Imaging Imaging: Chest x-ray done this morning: IMPRESSION: 1. Very limited due to poor inspiratory effort and soft tissue attenuation factors. 2. The heart appears to be enlarged. 3. A tube traversing esophagus. Exact terminus is not visible on the image. 4. Right lung and right pleural space grossly normal. Can not exclude left basilar airspace disease. Dictated by Stuart Karimi MD @ 09/22/2024 8:15:06 AM Progress Note:A&P Assessment and plan (1) Wheezing: Status: Acute (2) JOE (acute kidney injury): Status: Acute (3) Blood glucose elevated: Status: Acute (4) Elevated LFTs: Status: Acute (5) Hypokalemia: Status: Acute (6) S/P exploratory laparotomy: Status: Acute (7) Obesity: Status: Acute (8) Complication of ostomy: Status: Acute (9) Rhabdomyolysis: Status: Acute Plan The patient is a 44-year-old male who is postop day 1 status post exploratory laparotomy sigmoid resection and and colostomy for perforated diverticulitis with free intraperitoneal air and abscess. - continue NG tube and NPO status given high outputs and expectation of ileus given the amount of inflammation described intraoperatively. -I am concerned about the stoma. It is entirely hemorrhagic, retracted and mucosal sloughing noted. Will take a watchful waiting approach to this and re- evaluate tomorrow. -in the meantime, stomal cares per nursing and stoma teaching should begin. -daily wet to dry dressing changes to midline incision (orders placed) -encourage IS and ambulation. -Lovenox started for DVT prophylaxis. -patient with JOE, possibly some degree of dehydration, possibly related to medications and or prolonged surgery in the setting of obesity. CK is mildly elevated. Will recheck tomorrow as long as urine output continues to improve. continue Adam and monitor I/Os strictly. Zosyn switched to ertapenem. -potassium added to maintenance IV fluids. Will recheck in the morning.
[2024-09-22] MEDS: POTASSIUM CHLORIDE 20 MEQ in 0.9 % SODIUM CHLORIDE 1000 ml 1,000 ML 125 MEQ IV (12:00)
[2024-09-22 15:54] LABS: Magnesium* 2.7 mg/dL (1.5-2.6)
[2024-09-22] MEDS: POTASSIUM CHLORIDE 20 MEQ in 0.9 % SODIUM CHLORIDE 1000 ml 1,000 ML 200 MEQ IV (16:13)
--- NOTE | 2024-09-22 18:59 | PC.NURSE ---
End of Shift 7-19: The patient is passive and soft spoken with cares. VSS throughout the shift. Diaphoretic while sleeping intermittently throughout the day, although afebrile. The patient reported pain with any movement but was unable to rate it on the number scale. Large midline incision dressing was changed today... Manuel CDI and ABD pads were placed and tapped for the dressing. Reported Nausea this AM and had one small emesis. Belching and bowel sounds are noted to be hypoactive. NG to LIS @ 57 with large amount of output throughout the day see I/O. The patient enjoys ice chips. The patient got up 2x today and tolerated some ambulating in his room. Repositions himself in bed. No output from colostomy, the patient is hesitant to participate in cares with this at this time. O2 via oxymask 1L when the patient sleeps intermittently throughout the day. Minimal urine output continued throughout the day, MD aware. Call light within the patients reach. Tele sinus tachcyardia. Simi MATTA BSN
[2024-09-22] MEDS: ENOXAPARIN 40 MG/0.4 ML INJ SUBCUT (20:55)
[2024-09-22] MEDS: LACTATED RINGERS 1000 ML 1,000 ML 200 ML IV (23:13)
[2024-09-23] VITALS (11 sets, daily range): BP systolic 116–184; BP diastolic 69–98; PULSE 86–106; RESP 18–20; TEMP 36.6–37.3; O2SAT 88–92
[2024-09-23] MEDS: LACTATED RINGERS 1000 ML 1,000 ML 200 ML IV (03:34)
[2024-09-23 06:22] LABS: Hematocrit 39.1 % (37.0-53.0); Mean Corpuscular HGB Conc 33 gm/dL (32-36); Mean Corpuscular Hemoglobin 29 pg (26-34); Mean Corpuscular Volume 87 fL (80-100); Platelet Count* 349 K/uL (140-440); Red Blood Count 4.48 m/uL (4.30-5.90); White Blood Count* 22.69 K/uL (4.50-11.00)
[2024-09-23 06:28] LABS: Slide Review Reflex No
[2024-09-23 06:34] LABS: Albumin* 2.8 g/dL (3.3-5.0); Chloride* 103 mmol/L (96-114); Sodium* 141 mmol/L (135-149)
[2024-09-23 06:35] LABS: Potassium* 3.2 mmol/L (3.6-5.1)
[2024-09-23 06:37] LABS: Alanine Aminotransferase* 45 U/L (4-50); Alkaline Phosphatase* 127 U/L (40-150); Anion Gap 7 mEq/L (7-15); Aspartate Amino Transferase* 60 U/L (12-35); Bilirubin Total* 0.7 mg/dL (0.1-1.5); Blood Urea Nitrogen* 55 mg/dL (5-24); Carbon Dioxide* 31 mmol/L (20-32); Creatine Kinase* 666 U/L (54-186); Creatinine* 2.2 mg/dL (0.5-1.5); Est. Creatinine Clearance* 41.96; Estimated Glomerular Filt Rate 36 ml/min; Total Protein* 5.9 g/dL (6.0-8.3)
[2024-09-23 06:38] LABS: Calcium* 7.7 mg/dL (8.4-10.6); Glucose* 149 mg/dL (60-115); Magnesium* 3.1 mg/dL (1.5-2.6)
--- NOTE | 2024-09-23 06:56 | PC.NURSE ---
End of shift note [id number]: Pt A&Ox4 and able to make needs known. NG in place to LIS to R nare measures at 57 cm and hooked up to LIS per order. PRN Dilaudid utilized for pain control to abdomen last evening along with rest and repositioning. Midline dressing to abdominal incision noted to be C/D/I. No output noted in ostomy bag. Stoma noted to be dark red in color. Pt has been afebrile and on RA throughout the shift. IV fluid running per order. NPO diet remains in place. Pt frequently requesting ice chips though provided sparingly as he is educated they will be sucked out of stomach by NG tube. SCDs worn to BLEs. IS encouraged and performed throughout the shift- pt is able to complete independently. Pt able to reposition side to side independently in bed and is able to boost himself up in bed using overhead trapeze. Bed alarm on and call light within reach. Tele in place with sinus tachycardia and sinus arrhythmia noted throughout the shift along with BBB. Adam catheter remains in place. No N/V.
[2024-09-23 07:25] LABS: C Reactive Protein* 32.7 mg/dL (0.5-1.0)
--- NOTE | 2024-09-23 08:32 | PM.GSPN ---
Subjective Subjective Date Seen: 09/23/24 Interval history: Filiberto was up walking this morning. Urine output is improved since yesterday. Still having a large amount of NG output. He is on room air today. He has no nausea and has not been taking medication for pain. Exam Narrative: Exam Narrative: General: No acute distress CV: Mild tachycardia with heart rate of 100. Respiratory: Breathing nonlabored on room air HEENT: NG in place. Copious bilious output noted. 3 L since yesterday Abdomen: Protuberant. Stoma retracted with mucosal sloughing but today appears perfused though is still hemorrhagic. Midline wound with radha. faint erythema noted around inferior aspect Const: Vital Signs, click to edit/add: Vital Signs - 24 hr 09/22/24 09:05 09/22/24 11:08 09/22/24 11:30 Temperature 98.3 F Pulse Rate Pulse Rate [Left P ulse Oximeter] 106 H 104 H 95 Respiratory Rate 20 18 18 Blood Pressure [Le ft forearm] 117/87 Blood Pressure [R forearm] 166/89 H Pulse Oximetry 90 92 Oxygen Delivery Me thod Room Air Room Air Oxygen Flow Rate 09/22/24 12:00 09/22/24 12:02 09/22/24 13:08 Temperature 98.4 F Pulse Rate Pulse Rate [Left P ulse Oximeter] 102 H Respiratory Rate 18 18 Blood Pressure [Le ft forearm] 145/97 H Blood Pressure [R forearm] Pulse Oximetry 88 95 93 Oxygen Delivery Me thod Room Air OxyMask OxyMask Oxygen Flow Rate 1.5 1 09/22/24 15:00 09/22/24 15:00 09/22/24 15:20 Temperature 98.3 F Pulse Rate 109 H Pulse Rate [Left P ulse Oximeter] 108 H Respiratory Rate 16 18 Blood Pressure [Le ft forearm] 153/85 H Blood Pressure [R forearm] Pulse Oximetry 94 91 Oxygen Delivery Me thod OxyMask Room Air Oxygen Flow Rate 1 09/22/24 16:00 09/22/24 17:00 09/22/24 18:30 Temperature 98.4 F Pulse Rate Pulse Rate [Left P ulse Oximeter] 108 H 114 H Respiratory Rate 18 18 Blood Pressure [Le ft forearm] 142/73 H Blood Pressure [R forearm] Pulse Oximetry 90 90 Oxygen Delivery Me thod Room Air Room Air Oxygen Flow Rate 09/22/24 19:00 09/22/24 19:22 09/22/24 19:45 Temperature 97.0 F L Pulse Rate 114 H Pulse Rate [Left P ulse Oximeter] 106 H 106 H Respiratory Rate 18 18 Blood Pressure [Le ft forearm] Blood Pressure [R forearm] 144/75 H Pulse Oximetry 89 [facility] Flow Rate 09/22/24 21:04 09/22/24 22:26 09/22/24 23:00 Temperature 98.4 F 97.3 F L Pulse Rate 109 H Pulse Rate [Left P ulse Oximeter] 106 H 109 H Respiratory Rate 18 18 Blood Pressure [Le ft forearm] Blood Pressure [R forearm] 148/85 H 138/85 Pulse Oximetry 89 89 [facility] Room Air Oxygen Flow Rate 09/22/24 23:00 09/22/24 23:09 09/23/24 01:00 Temperature 98.0 F Pulse Rate Pulse Rate [Left P ulse Oximeter] 106 H 106 H Respiratory Rate 18 18 18 Blood Pressure [Le ft forearm] 134/70 Blood Pressure [R forearm] Pulse Oximetry 89 88 [facility] Room Air Oxygen Flow Rate 09/23/24 02:33 09/23/24 03:00 09/23/24 03:10 Temperature 97.8 F Pulse Rate 95 Pulse Rate [Left P ulse Oximeter] 101 H 101 H Respiratory Rate 20 20 Blood Pressure [Le ft forearm] 117/69 Blood Pressure [R forearm] Pulse Oximetry 91 [facility] Flow Rate 09/23/24 05:15 09/23/24 08:19 Temperature 99.2 F 97.8 F Pulse Rate Pulse Rate [Left P ulse Oximeter] 96 100 Respiratory Rate 20 18 Blood Pressure [Le ft forearm] 116/79 Blood Pressure [R forearm] 159/87 H Pulse Oximetry 92 91 Oxygen Delivery Me od Room Air Room Air Oxygen Flow Rate Labs/Imaging Labs Labs: White blood cell count is 22 from 20.8 yesterday Hemoglobin 13 from 15 yesterday Potassium 3.2 from 3.3 yesterday BUN is 55 from 36 Creatinine 2.2 from 2.8 Magnesium elevated at 3.1 Total bilirubin remains normal at 0.7. AST slightly up today at 60 however ALT is normal at 45. CK still elevated at 666 from 732 CRP elevated at 32. Progress Note:A&P Assessment and plan (1) Rhabdomyolysis: Status: Acute (2) Complication of ostomy: Status: Acute (3) JOE (acute kidney injury): Status: Acute (4) Blood glucose elevated: Status: Acute (5) Hypokalemia: Status: Acute (6) S/P exploratory laparotomy: Status: Acute (7) Obesity: Status: Acute Plan The patient is a 44-year-old male who is postop day 2 status post exploratory laparotomy sigmoid resection and and colostomy for perforated diverticulitis with free intraperitoneal air and abscess. - continue NG tube and NPO status given high outputs and expectation of ileus given the amount of inflammation described intraoperatively. -Stoma appears more viable today. It is still hemorrhagic, retracted and mucosal sloughing noted, however, I think it will survive. Stomal cares per nursing and stoma teaching should begin. -encourage IS and ambulation. -Lovenox started for DVT prophylaxis. -patient with JOE, UOP and Cre improved today. CK remains mildly elevated. Will continue to follow strict I/O (continue astorga today). Maintenance IV fluids decreased slightly today. -potassium added to maintenance IV fluids. Will continue to follow. Likely losses from high NG outputs. May need additional judicial replacement. -Continue IV ertapenem for intra-abdominal infection.
[2024-09-23] MEDS: POTASSIUM CHLORIDE 20 MEQ in 0.9 % SODIUM CHLORIDE 1000 ml 1,000 ML 125 MEQ IV ×2 (09:10→17:51)
[2024-09-23] MEDS: ERTAPENEM 1 GM in 0.9 % SODIUM CHLORIDE Mini-bag 100 ML IVPB (09:16)
--- NOTE | 2024-09-23 11:34 | P.IMPN_ITS ---
Assessment and Plan Assessment and plan (1) JOE (acute kidney injury): Problem comment: Creatinine trending down 2.8 -> 2.2 Urine output low to borderline s/p IV fluids 500 mL, will continue IV maintenance. Patient has a catheter and no history of prostate problems Will order a renal ultrasound if he kidney fxn not improving. Status: Acute (2) Rhabdomyolysis: Problem comment: Trending down mild Status: Acute (3) Complication of ostomy: Problem comment: retracted w/ some sloughing Status: Acute (4) Blood glucose elevated: Problem comment: - random check, no h/o DM, does have risk factor of obesity, check HgbA1c Status: Acute (5) Hypokalemia: Problem comment: - recheck, replace if low Status: Acute (6) S/P exploratory laparotomy: Problem comment: - Dr. Frank, perforated viscous, Sigmoidectomy, End colostomy, Identification of perfusion with ICG - routine post op cares - general surgery following up Status: Acute (7) Obesity: Status: Acute (8) Perforation bowel: Status: Acute (9) Wheezing: Problem comment: History of smoking Ordered nebulizer with scheduled budesonide Will monitor Status: Acute (10) Elevated LFTs: Status: Acute Total Time Spent Total Time Spent: Today I spent 50 minutes seeing the patient, reviewing Expanse and EPIC notes/diagnostics, discussing the care plan with our care time that includes social work, PT/OT, pharmacy, RT, detention and documenting my impressions and plan in the medical record. Subjective Date Seen: 09/23/24 Interval history: Patient seen and examined at bedside today. He states that his pain is controlled with pain medication. Denies fever, N/V or chest pain. High NG outputs. Creatinine trending down 2.8 -> 2.2, Lovenox DVT increased to 40 sq BID. Exam Narrative: Exam Narrative: Physical exam GENERAL: Comfortable, no acute distress. HEAD AND NECK: Atraumatic, normocephalic, NGT in CARDIOVASCULAR: RRR. Normal S1, S2. No murmurs. RESPIRATORY: Clear to auscultation B/L. Good air entry B/L. Positive wheezes. GASTROINTESTINAL: Not distended, stoma (colostomy) in. NEUROLOGY: Alert, awake, oriented X 3. Normal speech. PSYCH: Normal mood, normal affect. Const: Vital Signs, click to edit/add: Vital Signs - 24 hr 09/22/24 12:00 09/22/24 12:02 09/22/24 13:08 Temperature 98.4 F Pulse Rate Pulse Rate [Left P ulse Oximeter] 102 H Respiratory Rate 18 18 Blood Pressure [Le ft forearm] 145/97 H Blood Pressure [R forearm] Pulse Oximetry 88 95 93 Oxygen Delivery Me od Room Air OxyMask OxyMask Oxygen Flow Rate 1.5 1 09/22/24 15:00 09/22/24 15:00 09/22/24 15:20 Temperature 98.3 F Pulse Rate 109 H Pulse Rate [Left P ulse Oximeter] 108 H Respiratory Rate 16 18 Blood Pressure [Le ft forearm] 153/85 H Blood Pressure [R forearm] Pulse Oximetry 94 91 Oxygen Delivery Me od OxyMask Room Air Oxygen Flow Rate 1 09/22/24 16:00 09/22/24 17:00 09/22/24 18:30 Temperature 98.4 F Pulse Rate Pulse Rate [Left P ulse Oximeter] 108 H 114 H Respiratory Rate 18 18 Blood Pressure [Le ft forearm] 142/73 H Blood Pressure [R forearm] Pulse Oximetry 90 90 Oxygen Delivery Me od Room Air Room Air Oxygen Flow Rate 09/22/24 19:00 09/22/24 19:22 09/22/24 19:45 Temperature 97.0 F L Pulse Rate 114 H Pulse Rate [Left P ulse Oximeter] 106 H 106 H Respiratory Rate 18 18 Blood Pressure [Le ft forearm] Blood Pressure [R forearm] 144/75 H Pulse Oximetry 89 Oxygen Delivery Me od Room Air Oxygen Flow Rate 09/22/24 21:04 09/22/24 22:26 09/22/24 23:00 Temperature 98.4 F 97.3 F L Pulse Rate 109 H Pulse Rate [Left P ulse Oximeter] 106 H 109 H Respiratory Rate 18 18 Blood Pressure [Le ft forearm] Blood Pressure [R forearm] 148/85 H 138/85 Pulse Oximetry 89 89 Oxygen Delivery Me od Room Air Room Air Oxygen Flow Rate 09/22/24 23:00 09/22/24 23:09 09/23/24 01:00 Temperature 98.0 F Pulse Rate Pulse Rate [Left P ulse Oximeter] 106 H 106 H Respiratory Rate 18 18 18 Blood Pressure [Le ft forearm] 134/70 Blood Pressure [R forearm] Pulse Oximetry 89 88 Oxygen Delivery Me thod Room Air Room Air Oxygen Flow Rate 09/23/24 02:33 09/23/24 03:00 09/23/24 03:10 Temperature 97.8 F Pulse Rate 95 Pulse Rate [Left P ulse Oximeter] 101 H 101 H Respiratory Rate 20 20 Blood Pressure [Le ft forearm] 117/69 Blood Pressure [R forearm] Pulse Oximetry 91 Oxygen Delivery Me thod Room Air Oxygen Flow Rate 09/23/24 05:15 09/23/24 07:16 09/23/24 08:19 Temperature 99.2 F 97.8 F Pulse Rate 88 Pulse Rate [Left P ulse Oximeter] 96 100 Respiratory Rate 20 18 Blood Pressure [Le ft forearm] 116/79 Blood Pressure [R forearm] 159/87 H Pulse Oximetry 92 91 Oxygen Delivery Me od Room Air Room Air Oxygen Flow Rate 09/23/24 08:19 Temperature Pulse Rate Pulse Rate [Left P ulse Oximeter] Respiratory Rate Blood Pressure [Le ft forearm] Blood Pressure [R forearm] Pulse Oximetry 91 Oxygen Delivery Me thod Room Air Oxygen Flow Rate Labs Labs: Laboratory Results - last 24 hr 09/22/24 09/22/24 09/23/24 07:43 15:35 06:00 WBC 22.69 H RBC 4.48 Hgb 13.0 L Hct 39.1 MCV 87 MCH 29 MCHC 33 Plt Count 349 Sodium 141 Potassium 3.2 L Chloride 103 Carbon Dioxide 31 Anion Gap 7 BUN 55 H Creatinine 2.2 H Estimated Creat Clear 41.96 Estimated GFR 36 Glucose 149 H Calcium 7.7 L Magnesium 2.7 H 3.1 H Total Bilirubin 0.7 AST 60 H ALT 45 Alkaline Phosphatase 127 Total Creatine Kinase 666 H C-Reactive Protein 32.7 H Total Protein 5.9 L Albumin 2.8 L Lab Acknowledgement Test Added
[2024-09-23] MEDS: BUDESONIDE 0.5 MG/2ML NEB NEB ×2 (12:46→21:55)
[2024-09-23] MEDS: BENZOCAINE/MENTHOL 1 EACH LOZENGE MUCOUS MEM (14:45)
[2024-09-23] MEDS: ENOXAPARIN 40 MG/0.4 ML INJ SUBCUT (21:01)
[2024-09-23] MEDS: SODIUM CHLORIDE 0.9 % (FLUSH) 10 ML SYRINGE 5 ML IVF (21:02)
[2024-09-23] MEDS: HYDROmorphone 0.5 mg/0.5 ml inj IVP (21:54)
--- NOTE | 2024-09-23 22:56 | PC.NURSE ---
End of Shift: Patient pleasant and cooperative. Afebrile. NG to LIS. Denies nausea. No gas or output noted in ostomy. Manuel to midline incision C/D/I. Rating pain up to 5/10 and PRN Dilaudid given x1. Ice to abdomen. Up walking in hallway x3 this shift. BP up to 176/97, updated MD and no new orders at this time. Adam patent.
[2024-09-24] VITALS (7 sets, daily range): BP systolic 165–188; BP diastolic 82–114; PULSE 73–92; RESP 16–22; TEMP 36.7–37.3; O2SAT 88–92
[2024-09-24] MEDS: HYDROmorphone 0.5 mg/0.5 ml inj IVP ×2 (03:44→21:08)
[2024-09-24 07:00] LABS: Hematocrit 37.7 % (37.0-53.0); Hemoglobin* 12.2 gm/dL (13.5-17.5); Mean Corpuscular HGB Conc 32 gm/dL (32-36); Mean Corpuscular Hemoglobin 29 pg (26-34); Mean Corpuscular Volume 89 fL (80-100); Platelet Count* 349 K/uL (140-440); Red Blood Count 4.24 m/uL (4.30-5.90); White Blood Count* 16.89 K/uL (4.50-11.00)
[2024-09-24 07:03] LABS: Slide Review Reflex No
--- NOTE | 2024-09-24 07:07 | PC.NURSE ---
23-7: The patient was up intermittently during cares, NG to LIS @ 57... lots of output still. Varma is patent and draining. Currently saline locked due to fluid orders. Ice chips given throughout the night. Call light within reach and aroma therapy patch given to help sleep. Rates his pain as tolerable @ 5/10. Ice pack to midline abdominal incision that is CDI with radha. SCDS on. Simi MATTA BSN
[2024-09-24 07:16] LABS: Albumin* 2.9 g/dL (3.3-5.0); Chloride* 105 mmol/L (96-114); Potassium* 3.3 mmol/L (3.6-5.1); Sodium* 146 mmol/L (135-149)
[2024-09-24 07:19] LABS: Alanine Aminotransferase* 56 U/L (4-50); Alkaline Phosphatase* 132 U/L (40-150); Anion Gap 2 mEq/L (7-15); Aspartate Amino Transferase* 97 U/L (12-35); Bilirubin Total* 0.7 mg/dL (0.1-1.5); Blood Urea Nitrogen* 57 mg/dL (5-24); Calcium* 7.7 mg/dL (8.4-10.6); Carbon Dioxide* 39 mmol/L (20-32); Creatinine* 1.6 mg/dL (0.5-1.5); Est. Creatinine Clearance* 57.69; Estimated Glomerular Filt Rate 53 ml/min; Glucose* 137 mg/dL (60-115); Total Protein* 6.3 g/dL (6.0-8.3)
[2024-09-24] MEDS: POTASSIUM CHLORIDE 20 MEQ in 0.9 % SODIUM CHLORIDE 1000 ml 1,000 ML 125 MEQ IV ×2 (08:59→18:18)
[2024-09-24] MEDS: ERTAPENEM 1 GM in 0.9 % SODIUM CHLORIDE Mini-bag 100 ML IVPB (09:00)
[2024-09-24] MEDS: ENOXAPARIN 40 MG/0.4 ML INJ SUBCUT ×2 (09:01→20:44)
--- NOTE | 2024-09-24 09:40 | P.IMPN_ITS ---
Assessment and Plan Assessment and plan (1) JOE (acute kidney injury): Problem comment: Creatinine trending down 2.8 -> 2.2 -> 1.6 Urine output improving s/p IV fluids 500 mL, will continue IV maintenance. Patient has a catheter and no history of prostate problems Will order a renal ultrasound if he kidney fxn not improving. Status: Acute (2) Hypokalemia: Problem comment: Likely secondary to high output of his NG tube Will continue replacing his potassium Status: Acute (3) Rhabdomyolysis: Problem comment: Trending down mild Status: Acute (4) Complication of ostomy: Problem comment: retracted w/ some sloughing Status: Acute (5) Blood glucose elevated: Problem comment: - random check, no h/o DM, does have risk factor of obesity, check HgbA1c Status: Acute (6) Hypokalemia: Problem comment: - recheck, replace if low Status: Acute (7) S/P exploratory laparotomy: Problem comment: - Dr. Frank, perforated viscous, Sigmoidectomy, End colostomy, Identification of perfusion with ICG - routine post op cares - general surgery following up Status: Acute (8) Obesity: Status: Acute (9) Perforation bowel: Status: Acute (10) Wheezing: Problem comment: History of smoking Ordered nebulizer with scheduled budesonide Will monitor Status: Acute (11) Elevated LFTs: Status: Acute Total Time Spent Total Time Spent: Today I spent 50 minutes seeing the patient, reviewing Expanse and EPIC notes/diagnostics, discussing the care plan with our care time that includes social work, PT/OT, pharmacy, RT, long term and documenting my impressions and plan in the medical record. Subjective Date Seen: 09/24/24 Interval history: Patient seen and examined at bedside today. He states that his pain is controlled with pain medication. No new complaints. Kidney function improving. Exam Narrative: Exam Narrative: GENERAL: Comfortable, no acute distress. HEAD AND NECK: Atraumatic, normocephalic, NGT in CARDIOVASCULAR: RRR. Normal S1, S2. No murmurs. RESPIRATORY: Clear to auscultation B/L. Good air entry B/L. Positive wheezes. GASTROINTESTINAL: Not distended, stoma (colostomy) in. NEUROLOGY: Alert, awake, oriented X 3. Normal speech. PSYCH: Normal mood, normal affect. Const: Vital Signs, click to edit/add: Vital Signs - 24 hr 09/23/24 11:42 09/23/24 15:00 09/23/24 15:00 Temperature 98.6 F 97.9 F Pulse Rate Pulse Rate [Left P ulse Oximeter] 95 92 Respiratory Rate 20 20 Blood Pressure [Le ft forearm] Blood Pressure [R forearm] 161/95 H 164/98 H Pulse Oximetry 91 91 91 Oxygen Delivery Me thod Room Air Room Air Room Air 09/23/24 15:00 09/23/24 15:00 09/23/24 19:00 Temperature 98.2 F Pulse Rate 86 Pulse Rate [Left P ulse Oximeter] 92 91 Respiratory Rate 20 20 Blood Pressure [Le ft forearm] Blood Pressure [R forearm] 176/97 H Pulse Oximetry 92 Oxygen Delivery Me [facility] Room Air 09/23/24 23:00 09/23/24 23:00 09/23/24 23:00 Temperature 98.5 F Pulse Rate 96 Pulse Rate [Left P ulse Oximeter] 97 Respiratory Rate 20 20 Blood Pressure [Le ft forearm] 184/95 H Blood Pressure [R forearm] Pulse Oximetry 90 90 Oxygen Delivery Me [facility] Room Air Room Air 09/24/24 03:00 09/24/24 07:51 Temperature 98.2 F 99.2 F Pulse Rate Pulse Rate [Left P ulse Oximeter] 92 89 Respiratory Rate 18 16 Blood Pressure [Le ft forearm] 188/87 H Blood Pressure [R forearm] 174/96 H Pulse Oximetry 88 91 Oxygen Delivery Me [facility] Room Air Room Air Labs Labs: Laboratory Results - last 24 hr 09/24/24 06:36 WBC 16.89 H RBC 4.24 L Hgb 12.2 L Hct 37.7 MCV 89 MCH 29 MCHC 32 Plt Count 349 Sodium 146 Potassium 3.3 L Chloride 105 Carbon Dioxide 39 H Anion Gap 2 L BUN 57 H Creatinine 1.6 H Estimated Creat Clear 57.69 Estimated GFR 53 Glucose 137 H Calcium 7.7 L Total Bilirubin 0.7 AST 97 H ALT 56 H Alkaline Phosphatase 132 Total Protein 6.3 Albumin 2.9 L
--- NOTE | 2024-09-24 10:13 | NUTR.NU ---
RDN with MD consult for new ostomy. Patient admitted 09/21 with perforated bowel. He underweight exploratory laparotomy 09/21 resulting in sigmoidectomy with colostomy. RDN assessed MD reports and concluded today is Day 5 of NPO/inadequate oral intakes for patient, potentially longer as it seems patient had a poor appetite for about 1 week prior to admit. Current diet remains NPO. RDN recommending initiating TPN/PPN by day 10, 08/29/2024. I spoke to Hospitalist whom will speak with MD from general surgery regarding opinion on initiating TPN/PPN. Will continue to monitor and continue discussion with hospitalist/general surgeon as needed. No nutrition interventions at this time.
--- NOTE | 2024-09-24 11:36 | PM.GSPN ---
Subjective Subjective Date Seen: 09/24/24 Interval history: Filiberto continues to do well. He has not taken any pain medication. He is mainly concerned about the NG tube. He would like to get this out and he really would like to drink water. Urine output has improved. He has not ambulated yet today. He feels as though there has been some gas coming from his stoma. Exam Narrative: Exam Narrative: General: No acute distress CV: Regular rate Respiratory: Breathing nonlabored on room air HEENT: NG in place. Patient has had 3.7 L of NG output in the last 24 hours. Of this, only 600 has been p.o. intake. Output remains bilious. Abdomen: Protuberant. There is still some tu-incisional erythema at the inferior left aspect. This is stable from yesterday. No drainage from the incision. Stoma remains hemorrhagic, however does appear perfused. It is retracted. Hypoactive bowel sounds. Adam in place. There is sediment noted in the tubing. Const: Vital Signs, click to edit/add: Vital Signs - 24 hr 09/23/24 11:42 09/23/24 15:00 09/23/24 15:00 Temperature 98.6 F 97.9 F Pulse Rate Pulse Rate [Left P ulse Oximeter] 95 92 Respiratory Rate 20 20 Blood Pressure [Le ft forearm] Blood Pressure [R forearm] 161/95 H 164/98 H Pulse Oximetry 91 91 91 [facility] Room Air Room Air Room Air 09/23/24 15:00 09/23/24 15:00 09/23/24 19:00 Temperature 98.2 F Pulse Rate 86 Pulse Rate [Left P ulse Oximeter] 92 91 Respiratory Rate 20 20 Blood Pressure [Le ft forearm] Blood Pressure [R forearm] 176/97 H Pulse Oximetry 92 Oxygen Delivery [facility] Room Air 09/23/24 23:00 09/23/24 23:00 09/23/24 23:00 Temperature 98.5 F Pulse Rate 96 Pulse Rate [Left P ulse Oximeter] 97 Respiratory Rate 20 20 Blood Pressure [Le ft forearm] 184/95 H Blood Pressure [R forearm] Pulse Oximetry 90 90 Oxygen Delivery [facility] Room Air Room Air 09/24/24 03:00 09/24/24 07:04 09/24/24 07:51 Temperature 98.2 F 99.2 F Pulse Rate 91 Pulse Rate [Left P ulse Oximeter] 92 89 Respiratory Rate 18 16 Blood Pressure [Le ft forearm] 188/87 H Blood Pressure [R forearm] 174/96 H Pulse Oximetry 88 91 Oxygen Delivery Me thod Room Air Room Air 09/24/24 07:51 Temperature Pulse Rate Pulse Rate [Left P ulse Oximeter] Respiratory Rate 16 Blood Pressure [Le ft forearm] Blood Pressure [R forearm] Pulse Oximetry 91 Oxygen Delivery Me thod Room Air Labs/Imaging Labs Labs: White blood cell count 16 from 22 Hemoglobin 12.2 from 13 Potassium 3.3 Bicarb 39 BUN 57 from 55 Creatinine 1.6 from 2.2 Progress Note:A&P Assessment and plan (1) Hypokalemia: Status: Acute (2) Complication of ostomy: Status: Acute (3) JOE (acute kidney injury): Status: Acute (4) Blood glucose elevated: Status: Acute (5) Elevated LFTs: Status: Acute (6) S/P exploratory laparotomy: Status: Acute (7) Obesity: Status: Acute Plan The patient is a 44-year-old male who is postop day 3 status post exploratory laparotomy, sigmoid resection and end colostomy for perforated diverticulitis with free intraperitoneal air an abscess. -NG output has been very high, almost 4 L. This likely explains his persistent hypokalemia despite gentle replacement. The patient is anxious to get his NG out. He claims to have some antegrade bowel function with passage of gas, however he does not have any significant bowel sounds on exam. I had a discussion with him about prolonged ileus and that even if the tube is removed I would not advance his diet right away until he has antegrade bowel function. We decided on clamping NG tube today. If patient develops nausea the NG tube should be placed back to suction. I did place orders for the tube to be placed to suction at 6:00 p.m.. The output should be recorded and we will then decide whether not the NG will be removed. -JOE is improving. Urine output all is also improved. RHEA Adam however continue to follow I/O -continue ertapenem for intra-abdominal infection. Patient also with some redness around the incision. Will continue to follow. If this worsens the incision may need to be opened. -continue to encourage IS and ambulation. -Lovenox for DVT prophylaxis, weight based -hospitalist replacing potassium - suspect that this is likely ongoing NG losses. -stoma teaching per nursing staff
--- NOTE | 2024-09-24 14:36 | P.IMCN_ITS ---
Date of Consult Consult date: 09/24/24 Requesting Physician: General Surgery Primary Care Provider: Not a Local Provider Consult Narrative Narrative: Filiberto Porter is a 44 year old male needing to be seen today by for ostomy services. He is currently day 3 status post exploratory laparotomy, sigmoid resection and end colostomy for perforated diverticulitis with free intraperitoneal air an abscess. A colostomy was created during surgery. His mom is here with him today, though does step out during the visit. Patient is laying in bed with his NG tube clamped, he is willing to do some talking today, though is unsure if he is ready for much education. He has been placed in a convex pouching system due to the characteristics of the stoma. Review of Systems Status of ROS: Reports: 6 or more systems reviewed and unremarkable except as noted in History and below [facility] Medical History (Updated 09/24/24 @ 09:45 by Mitzi Aguayo MD) Hypokalemia ?E87.6 - Hypokalemia (ICD-10) Obesity ?E66.9 - Obesity, unspecified (ICD-10) Hypertension ?I10 - Essential (primary) hypertension (ICD-10) Surgical History (Updated 09/22/24 @ 14:07 by Mitzi Aguayo MD) S/P exploratory laparotomy (09/21/24) ?Z98.890 - Other specified postprocedural states (ICD-10) Social History (Updated 09/21/24 @ 17:55 by Kayla Weeks MD) Narrative: Patient's mother, Sofya, is here with him. Denies alcohol or recreational drug use. Smokes 1/2ppd Smoking Status: Current every day smoker What tobacco products do you use: cigarettes How often do you have a drink containing alcohol: never AUDIT-C Alcohol total score: 0 Non-prescribed substance use: denies use service: No Meds Home Medications and Allergies Home Medications ?Medication ?Instructions ?Recorded ?Confirmed ?Type No Known Home Medications 09/21/24 09/21/24 History Allergies Allergy/AdvReac Type Severity Reaction Status Date / Time No Known Drug Allergies Allergy Verified 09/21/24 07:46 Exam Const: Vital Signs, click to edit/add: Vital Signs - 24 hr 09/23/24 15:00 09/23/24 15:00 09/23/24 15:00 Temperature 97.9 F Pulse Rate Pulse Rate [Left P ulse Oximeter] 92 92 Respiratory Rate 20 20 Blood Pressure [Le ft forearm] Blood Pressure [R forearm] 164/98 H Pulse Oximetry 91 91 Oxygen Delivery [facility] Room Air Room Air 09/23/24 15:00 09/23/24 19:00 09/23/24 23:00 Temperature 98.2 F Pulse Rate 86 Pulse Rate [Left P ulse Oximeter] 91 Respiratory Rate 20 20 Blood Pressure [Le ft forearm] Blood Pressure [R forearm] 176/97 H Pulse Oximetry 92 90 Oxygen Delivery [facility] Room Air Room Air 09/23/24 23:00 09/23/24 23:00 09/24/24 03:00 Temperature 98.5 F 98.2 F Pulse Rate 96 Pulse Rate [Left P ulse Oximeter] 97 92 Respiratory Rate 20 18 Blood Pressure [Le ft forearm] 184/95 H 188/87 H Blood Pressure [R forearm] Pulse Oximetry 90 88 Oxygen Delivery [facility] Room Air Room Air 09/24/24 07:04 09/24/24 07:51 09/24/24 07:51 Temperature 99.2 F Pulse Rate 91 Pulse Rate [Left P ulse Oximeter] 89 Respiratory Rate 16 16 Blood Pressure [Le ft forearm] Blood Pressure [R forearm] 174/96 H Pulse Oximetry 91 91 Oxygen Delivery [facility] Room Air Room Air 09/24/24 11:46 Temperature 99.1 F Pulse Rate Pulse Rate [Left P ulse Oximeter] 86 Respiratory Rate 18 Blood Pressure [Le ft forearm] Blood Pressure [R forearm] 165/82 H Pulse Oximetry 90 Oxygen Delivery [facility] Room Air Common normals: no apparent distress and oriented x3 General appearance: cooperative Chest: Common normals: inspection of chest normal Resp: Common normals: normal respiratory effort GI: Other: NG tube clambed at visit Neuro: Common normals: oriented x3 Labs Labs: Short CBC 09/24/24 Range/Units 06:36 WBC 16.89 H (4.50-11.00) K/uL Hgb 12.2 L (13.5-17.5) gm/dL Hct 37.7 (37.0-53.0) % Plt Count 349 (140-440) K/uL BMP 09/24/24 06:36 Sodium 146 Potassium 3.3 L Chloride 105 Carbon Dioxide 39 H BUN 57 H Creatinine 1.6 H Glucose 137 H Calcium 7.7 L Liver Function 09/24/24 Range/Units 06:36 Total Bilirubin 0.7 (0.1-1.5) mg/dL AST 97 H (12-35) U/L ALT 56 H (4-50) U/L Alkaline Phosphatase 132 (40-150) U/L Albumin 2.9 L (3.3-5.0) g/dL Assessment and Plan Assessment and plan (1) Perforation bowel: Status: Acute (2) S/P exploratory laparotomy: Problem comment: - Dr. Frank, perforated viscous, Sigmoidectomy, End colostomy, Identification of perfusion with ICG - routine post op cares - general surgery following up Status: Acute Plan Ostomy pouching system intact today, 2 piece Coloplast convex system last changed Sunday by Inpatient ostomy nurse. Will plan to change again for patient tomorrow. Washout of the pouch barrier noted. Stoma really not functioning post surgery. NG tube still in place. With tomorrow's change will add barrier ring to pouching system for assistance with wear time. Discussion with patient on appliance, frequency of changes and living with the ostomy. Patient will need assistance at home to continue education on pouch changes. Patient should continue to work toward emptying pouching system once starts functioning while inpatient. Outpatient ostomy visit with myself set-up for late next week pending DC planning. Patient has social work consult already placed, will likely qualify for home care with the degree of surgical intervention. Should have home care setup upon discharge from inpatient. Ostomy viewed at visit with pouching system taken apart, ostomy retracted which may pose challenges with pouching, continues with mucosal sloughing, dusky in color, though evidence of some level of perfusion.
--- NOTE | 2024-09-24 19:46 | PC.NURSE ---
End of Shift Note: Took over care of this patient at 1500. At that time his NG was clamped and received instructions to measure output at [address] roach. Did hook him back up to suction at 1710 and let it run for 182. He only put out a 100cc. clamped NG and asked Nurse Emily to check output again. If low we can pull the NG. He is very angry and frustrated with his whole situation and really wants to be able to drink something. I have tried several times explaining to him the importance of going slow and waiting until he is passing gas before we advance. Has been told he could develop more problems if he doesn't take his time with thing. The one thing he is doing well is he is getting up and ambulating around the nursing unit several times a day. Report given and leaving shift for the day.
[2024-09-24] MEDS: BUDESONIDE 0.5 MG/2ML NEB NEB (20:44)
[2024-09-24] MEDS: SODIUM CHLORIDE 0.9 % (FLUSH) 10 ML SYRINGE 5 ML IVF (21:08)
[2024-09-25] VITALS (7 sets, daily range): BP systolic 138–187; BP diastolic 87–113; PULSE 68–88; RESP 18–22; TEMP 36.1–36.9; O2SAT 92–98
[2024-09-25] MEDS: 0.9 % SODIUM CHLORIDE 1000 ml 1,000 ML 125 ML IV (03:06)
--- NOTE | 2024-09-25 05:17 | PC.NURSE ---
Shift note: Patient alert and oriented. Ambulated independently in room and hallway. Pt tolerated ice chips well. No drainage from the NG since 1900 until 2200. At 2200, NG tube was clamped to see how patient will tolerate before removal. Pt did with the NG tube being clamped without N/V or increase abdominal pain. NG tube removed this morning at 0530. IV line got blocked and new IV inserted at 2300. Pt had good urine output. Ostomy bag emptied of about 180ml of soft stool. Patient denied any pain, SOB, or increase abdominal; distention. Patient has been running high Bp. DeBus informed. IV fluid order was d/c for some reason. will call order clerk general surgeon called and gave verbal order to continue N/S at same rate (125ml/hr). Generally stable.
[2024-09-25 07:07] LABS: Chloride* 106 mmol/L (96-114)
[2024-09-25 07:08] LABS: Albumin* 2.8 g/dL (3.3-5.0); Potassium* 3.5 mmol/L (3.6-5.1); Sodium* 146 mmol/L (135-149)
[2024-09-25 07:11] LABS: Alanine Aminotransferase* 74 U/L (4-50); Alkaline Phosphatase* 119 U/L (40-150); Anion Gap 6 mEq/L (7-15); Aspartate Amino Transferase* 103 U/L (12-35); Bilirubin Total* 0.7 mg/dL (0.1-1.5); Blood Urea Nitrogen* 45 mg/dL (5-24); Calcium* 7.5 mg/dL (8.4-10.6); Carbon Dioxide* 34 mmol/L (20-32); Creatinine* 1.3 mg/dL (0.5-1.5); Estimated Glomerular Filt Rate 69 ml/min; Glucose* 123 mg/dL (60-115); Total Protein* 6.2 g/dL (6.0-8.3)
[2024-09-25 07:12] LABS: Hematocrit 37.8 % (37.0-53.0); Mean Corpuscular HGB Conc 32 gm/dL (32-36); Mean Corpuscular Hemoglobin 29 pg (26-34); Mean Corpuscular Volume 90 fL (80-100); Platelet Count* 348 K/uL (140-440); White Blood Count* 13.18 K/uL (4.50-11.00)
[2024-09-25 07:29] LABS: Slide Review Reflex No
[2024-09-25 07:44] LABS: C Reactive Protein* 8.2 mg/dL (0.5-1.0)
[2024-09-25] MEDS: ERTAPENEM 1 GM in 0.9 % SODIUM CHLORIDE Mini-bag 100 ML IVPB (08:44)
[2024-09-25] MEDS: POTASSIUM CHLORIDE 10 MEQ/100 ML PIGGYBACK 100 MEQ IVPB ×2 (08:45→09:56)
[2024-09-25] MEDS: BUDESONIDE 0.5 MG/2ML NEB NEB ×2 (08:45→21:25)
[2024-09-25] MEDS: ENOXAPARIN 40 MG/0.4 ML INJ SUBCUT ×2 (08:45→21:25)
--- NOTE | 2024-09-25 11:36 | PM.GSPN ---
Subjective Subjective Date Seen: 09/25/24 Interval history: Yesterday, He NG tube was clamped. Last evening it was placed to suction for over an hour and only 100 mL came out. The NG tube was removed. He did well overnight. This morning his diet was advanced to clears. He is now having stoma output. Some concerns about the redness around the incision worsening so antibiotics were broadened to add vanco this morning. Exam Narrative: Exam Narrative: General: No acute distress CV: Regular rate Respiratory: Breathing nonlabored on room air Abdomen: Protuberant. Stool noted in stoma bag. Midline incision with irritation and erythema around radha. There is some erythema and cellulitis at the inferior aspect. This is unchanged to slightly more faint as compared to yesterday. No drainage. Const: Vital Signs, click to edit/add: Vital Signs - 24 hr 09/24/24 11:46 09/24/24 15:00 09/24/24 15:00 Temperature 99.1 F 98.2 F Pulse Rate Pulse Rate [Left P ulse Oximeter] 86 86 Respiratory Rate 18 20 20 Blood Pressure [R forearm] 165/82 H 175/93 H Pulse Oximetry 90 92 [facility] Room Air 09/24/24 15:00 09/24/24 19:00 09/24/24 23:00 Temperature 98.1 F Pulse Rate 73 Pulse Rate [Left P ulse Oximeter] 85 75 Respiratory Rate 22 22 Blood Pressure [R forearm] 181/108 H Pulse Oximetry 92 Oxygen Delivery [facility] Room Air 09/24/24 23:00 09/24/24 23:00 09/24/24 23:00 Temperature 98.1 F Pulse Rate 78 Pulse Rate [Left P ulse Oximeter] 75 Respiratory Rate 22 22 Blood Pressure [R forearm] 175/114 H Pulse Oximetry 92 92 [facility] 09/25/24 01:55 09/25/24 07:00 09/25/24 07:00 Temperature 98.3 F Pulse Rate 73 Pulse Rate [Left P ulse Oximeter] 75 Respiratory Rate 22 Blood Pressure [R forearm] 180/109 H Pulse Oximetry 92 97 [facility] Air 09/25/24 07:00 Temperature 98.2 F Pulse Rate Pulse Rate [Left P ulse Oximeter] 84 Respiratory Rate 20 Blood Pressure [R forearm] 187/113 H Pulse Oximetry 97 Oxygen Delivery Me thod Room Air Labs/Imaging Labs Labs: White blood cell count 13 from 16 Hemoglobin 12.0 from 12.2 Potassium 3.5 BUN 45 from 57 Creatinine 1.3 from 1.6 CRP 8.2 from 32 days ago Progress Note:A&P Assessment and plan (1) Hypokalemia: Status: Acute (2) Complication of ostomy: Status: Acute (3) JOE (acute kidney injury): Status: Acute (4) Elevated LFTs: Status: Acute (5) Hypokalemia: Status: Acute (6) S/P exploratory laparotomy: Status: Acute (7) Obesity: Status: Acute Plan The patient is a 44-year-old male who is postop day 4 status post exploratory laparotomy, sigmoid resection and end colostomy for perforated diverticulitis with free intraperitoneal air an abscess. -he now has return of bowel function; NG removed yesterday. Diet advanced to clears. -okay to saline lock fluids when patient is taking adequate p.o.. -JOE is resolving. Urine output may be incompletely charted since Adam is now out -continue ertapenem for intra-abdominal infection for at least 7 days or longer until white blood cell count normalizes. -there is periwound erythema that has been unchanged for the last 3 days. If this worsens or the patient develops drainage, or he develops worsening white blood cell count or CRP then I would plan on opening the wound. -okay to add vanco, however patient is MRSA negative I think okay to DC. -Lovenox for DVT prophylaxis, weight based -stoma teaching per nursing staff. Ostomy expert has seen the patient and will make plans for outpatient follow-up. -nutrition following -hypokalemia improving. Continue to monitor and replace as needed per hospitalist -encourage ambulation.
[2024-09-25] MEDS: VANCOMYCIN 2 GM/400 ML 2 GM/400 ML PIGGYBACK IVPB ×2 (12:12→21:26)
--- NOTE | 2024-09-25 17:09 | P.IMPN_ITS ---
Assessment and Plan Assessment and plan (1) JOE (acute kidney injury): Problem comment: Creatinine trending down 2.8 -> 2.2 -> 1.6 -> JOE resolved Urine output improving s/p IV fluids 500 mL, IV maintenance. DC astorga catheter Status: Acute (2) S/P exploratory laparotomy: Problem comment: - Dr. Frank, perforated viscous, Sigmoidectomy, End colostomy, Identification of perfusion with ICG - routine post op cares - general surgery following up - 09/25: Overnight, NGT output was low and it was D/Eliud. Diet advanced to clear liquid. Status: Acute (3) Perforation bowel: Problem comment: Cont Zosyn Added vanc on 09/25 d/t concerns of increased redness of the lower abdominal part of his abd wound Status: Acute (4) Hypokalemia: Problem comment: Likely secondary to high output of his NG tube Will continue replacing his potassium Status: Acute (5) Rhabdomyolysis: Problem comment: Trending down mild Status: Acute (6) Complication of ostomy: Problem comment: retracted w/ some sloughing Status: Acute (7) Blood glucose elevated: Problem comment: - random check, no h/o DM, does have risk factor of obesity, check HgbA1c Status: Acute (8) Obesity: Status: Acute (9) Wheezing: Problem comment: History of smoking Ordered nebulizer with scheduled budesonide Will monitor Status: Acute (10) Elevated LFTs: Status: Acute Total Time Spent Total Time Spent: Today I spent 50 minutes seeing the patient, reviewing Expanse and EPIC notes/ diagnostics, discussing the care plan with our care time that includes social work, PT/OT, pharmacy, RT, fpc and documenting my impressions and plan in the medical record. Subjective Date Seen: 09/25/24 Interval history: Patient seen and examined at bedside today. Overnight, NGT output was low and it was D/Eliud. Diet advanced to clear liquid. redness of the lower part of his abdominal wound noticed. Exam Narrative: Exam Narrative: GENERAL: Comfortable, no acute distress. HEAD AND NECK: Atraumatic, normocephalic, NGT in CARDIOVASCULAR: RRR. Normal S1, S2. No murmurs. RESPIRATORY: Clear to auscultation B/L. Good air entry B/L. Positive wheezes. GASTROINTESTINAL: Not distended, stoma (colostomy) in. redness of the lower part of his abdominal wound noticed. NEUROLOGY: Alert, awake, oriented X 3. Normal speech. PSYCH: Normal mood, normal affect. Const: Vital Signs, click to edit/add: Vital Signs - 24 hr 09/24/24 19:00 09/24/24 23:00 09/24/24 23:00 Temperature 98.1 F Pulse Rate Pulse Rate [Left P ulse Oximeter] 85 75 Respiratory Rate 22 22 22 Blood Pressure [R forearm] 181/108 H Pulse Oximetry 92 [facility] 09/24/24 23:00 09/24/24 23:00 09/25/24 01:55 Temperature 98.1 F 98.3 F Pulse Rate 78 Pulse Rate [Left P ulse Oximeter] 75 75 Respiratory Rate 22 22 Blood Pressure [R forearm] 175/114 H 180/109 H Pulse Oximetry 92 [facility] Room Air 09/25/24 07:00 09/25/24 07:00 09/25/24 07:00 Temperature 98.2 F Pulse Rate 73 Pulse Rate [Left P ulse Oximeter] 84 Respiratory Rate 20 Blood Pressure [R forearm] 187/113 H Pulse Oximetry 97 97 [facility] Air 09/25/24 12:01 09/25/24 14:56 Temperature 98.2 F 98.5 F Pulse Rate Pulse Rate [Left P ulse Oximeter] 80 75 Respiratory Rate 18 18 Blood Pressure [R forearm] 165/89 H 180/107 H Pulse Oximetry 96 97 [facility] Air Labs Labs: Laboratory Results - last 24 hr 09/25/24 06:29 WBC 13.18 H RBC 4.20 L Hgb 12.0 L Hct 37.8 MCV 90 MCH 29 MCHC 32 Plt Count 348 Sodium 146 Potassium 3.5 L Chloride 106 Carbon Dioxide 34 H Anion Gap 6 L BUN 45 H Creatinine 1.3 Estimated Creat Clear 71.00 Estimated GFR 69 Glucose 123 H Calcium 7.5 L Total Bilirubin 0.7 AST 103 H ALT 74 H Alkaline Phosphatase 119 C-Reactive Protein 8.2 H Total Protein 6.2 Albumin 2.8 L
[2024-09-25] MEDS: HYDROCODONE-ACETAMIN 5-325 MG 1 TAB PO (18:03)
--- NOTE | 2024-09-25 19:00 | PC.NURSE ---
The patient ambulated 6x in the hallway today... medial abdominal incision open to air, although the patient stated that it was becoming irritated by the gown. 4X4 are now over the radha and the patient states that this feels better. Ice pack to the abdomen. Some redness surrounding radha.. Dr Go is aware. Tolerating a clear liquid diet with no N/V. Liquid brown output from ostomy. Simi MATTA BSN
[2024-09-25] MEDS: SODIUM CHLORIDE 0.9 % (FLUSH) 10 ML SYRINGE 5 ML IVF (21:26)
--- NOTE | 2024-09-25 22:40 | PC.NURSE ---
Pt pleasant and cooperative. abdominal ins CDI with light gauze covering. slight redness noted at radha. Afebrile. Stoma pink and concave. Appliance intact no leaks. small amt of liquid brown stool in pouch. VSS. Tolerating liquids.
[2024-09-26] VITALS (7 sets, daily range): BP systolic 147–157; BP diastolic 79–101; PULSE 60–84; RESP 16–18; TEMP 36.4; O2SAT 96–97
[2024-09-26 06:41] LABS: Hematocrit 37.6 % (37.0-53.0); Hemoglobin* 12.3 gm/dL (13.5-17.5); Mean Corpuscular HGB Conc 33 gm/dL (32-36); Mean Corpuscular Hemoglobin 29 pg (26-34); Mean Corpuscular Volume 89 fL (80-100); Platelet Count* 328 K/uL (140-440); Red Blood Count 4.22 m/uL (4.30-5.90); White Blood Count* 15.61 K/uL (4.50-11.00)
[2024-09-26 06:48] LABS: Slide Review Reflex No
[2024-09-26 06:56] LABS: Albumin* 2.7 g/dL (3.3-5.0); Chloride* 101 mmol/L (96-114); Potassium* 3.1 mmol/L (3.6-5.1); Sodium* 136 mmol/L (135-149)
[2024-09-26 06:59] LABS: Alanine Aminotransferase* 64 U/L (4-50); Alkaline Phosphatase* 110 U/L (40-150); Anion Gap 6 mEq/L (7-15); Aspartate Amino Transferase* 80 U/L (12-35); Bilirubin Total* 0.6 mg/dL (0.1-1.5); Blood Urea Nitrogen* 28 mg/dL (5-24); Calcium* 7.7 mg/dL (8.4-10.6); Carbon Dioxide* 29 mmol/L (20-32); Estimated Glomerular Filt Rate 94 ml/min; Glucose* 136 mg/dL (60-115); Total Protein* 6.1 g/dL (6.0-8.3)
--- NOTE | 2024-09-26 07:41 | PC.NURSE ---
[id number]: Pt alert, oriented and vitally stable. Ostomy checked throughout shift. Incision CDI. Pt denies pain. Up independently. Clear liquid diet. Pt in bed, appears to be resting, call light within reach.?
[2024-09-26] MEDS: BUDESONIDE 0.5 MG/2ML NEB NEB ×2 (08:33→20:52)
[2024-09-26] MEDS: SODIUM CHLORIDE 0.9 % (FLUSH) 10 ML SYRINGE 5 ML IVF ×2 (08:33→20:52)
[2024-09-26] MEDS: ERTAPENEM 1 GM in 0.9 % SODIUM CHLORIDE Mini-bag 100 ML IVPB (08:33)
[2024-09-26] MEDS: ENOXAPARIN 40 MG/0.4 ML INJ SUBCUT ×2 (08:33→20:52)
--- NOTE | 2024-09-26 09:39 | PM.GSPN ---
Subjective Subjective Date Seen: 09/26/24 Interval history: Filiberto did well overnight with clear liquids. Denies any nausea. He continues to ambulate. Not requiring any pain medication. Does feel some tightness and pulling across his abdomen. He is wondering if this is normal. Exam Narrative: Exam Narrative: General: No acute distress CV: Regular rate Respiratory: Breathing nonlabored on room air Abdomen: Protuberant. Stoma obscured by stool, however there is copious stool noted in his bag 200 mL out yesterday. There is irritational redness around the radha throughout the abdomen, however redness is more prominent with mild cellulitis at the inferior aspect of the wound. The wound was opened today at bedside for approximately a 3 cm segment. Murky fluid returned. This was cultured. The space tracks down to fascia. Wet-to-dry dressing was then placed. Urine output not recorded. Const: Vital Signs, click to edit/add: Vital Signs - 24 hr 09/25/24 12:01 09/25/24 14:56 09/25/24 15:00 Temperature 98.2 F 98.5 F Pulse Rate 88 Pulse Rate [Left P ulse Oximeter] 80 75 Respiratory Rate 18 18 Blood Pressure [R forearm] 165/89 H 180/107 H Pulse Oximetry 96 97 Oxygen Delivery [facility] Room Air Room Air 09/25/24 15:00 09/25/24 21:20 09/25/24 23:00 Temperature 97 F L 98.2 F Pulse Rate Pulse Rate [Left P ulse Oximeter] 77 78 Respiratory Rate 18 18 18 Blood Pressure [R forearm] 152/98 H 138/87 Pulse Oximetry 97 94 98 Oxygen Delivery [facility] Room Air Room Air Room Air 09/25/24 23:00 09/25/24 23:00 09/25/24 23:00 Temperature Pulse Rate 68 Pulse Rate [Left P ulse Oximeter] 78 Respiratory Rate 18 Blood Pressure [R forearm] Pulse Oximetry 93 Oxygen Delivery [facility] Room Air 09/26/24 03:00 09/26/24 07:00 09/26/24 07:00 Temperature 97.6 F Pulse Rate Pulse Rate [Left P ulse Oximeter] 60 84 Respiratory Rate 16 18 18 Blood Pressure [R forearm] 157/97 H Pulse Oximetry 96 96 Oxygen Delivery [facility] Room Air Room Air Labs/Imaging Labs Labs: White blood cell count today is up slightly to 15 from 13 Hemoglobin stable at 12.3 from 12 Potassium 3.1 from 3.5 Creatinine 1.0 from 1.3 BUN 28 from 45 AST and ALT remain mildly elevated MRSA screen negative. Progress Note:A&P Assessment and plan (1) Hypokalemia: Status: Acute (2) Complication of ostomy: Status: Acute (3) JOE (acute kidney injury): Status: Acute (4) Hypokalemia: Status: Acute (5) S/P exploratory laparotomy: Status: Acute (6) Obesity: Status: Acute Plan The patient is a 44-year-old male who is now postop day 5 status post exploratory laparotomy, sigmoid resection and end colostomy for perforated diverticulitis with free intraperitoneal air and abscess. -now with return of bowel function. Tolerated clear liquids. Advance to regular diet today. -wound infection appeared to be worsening so incision was opened today at bedside. Murky fluid return. This was cultured. Will start daily wet-to-dry dressing changes with vashe. I have asked nursing to change it again this evening. -continue ertapenem for intra-abdominal infection and and wound infection. Vancomycin can be stopped as the patient is not MRSA positive. Given rising white count will continue IV antibiotics today and consider transition to oral as patient improves. -JOE continues to improve with improvement of creatinine. Urine output had not been charted -hypokalemia, replacement per hospitalist. -Lovenox for DVT prophylaxis, weight based -stoma teaching per ostomy expert. -encourage ambulation. -possible discharge tomorrow pending wound appearance and patient's ability to care for it himself.
[2024-09-26] MEDS: VANCOMYCIN 2 GM/400 ML 2 GM/400 ML PIGGYBACK IVPB (09:47)
[2024-09-26 10:18] LABS: C Reactive Protein* 4.8 mg/dL (0.5-1.0)
--- NOTE | 2024-09-26 11:04 | NUTR.NU ---
DN with MD consult for new ostomy. Patient admitted 09/21 with perforated bowel. He underweight exploratory laparotomy 09/21 resulting in sigmoidectomy with colostomy. Today is day 7 of inadequate oral intakes/NPO/Clear liquids. Current weight 332lb 3oz; height 5ft 9in; BMI 49.1 kg/m2. Weight has been stable. Current diet is clear liquids. RDN visited with patient and family. Patient reports tolerating clear liquids at this time. RDN offered diet education related to new colostomy, patient agreed. Patient was provided diet education related to new colostomy.? Education provided on following a low fiber diet for the next ~4 weeks or per MD recommendation.? Education included recommendations on following a low-fiber diet of less than 13 grams of fiber per day and included foods that are recommended and not recommended.? Discussed foods that may cause blockages, gas/odors, and diarrhea and recommended to avoid. Verbal and written information as well as sample menus provided from [facility] on nutrition therapy for colostomy and low-fiber content of foods.? Patient verbalized understanding and had no questions or concerns.? RDN's contact information was provided and patient was encouraged to contact RDN with questions.
--- NOTE | 2024-09-26 12:34 | PM.IMPN1 ---
Assessment and Plan Assessment and plan (1) S/P exploratory laparotomy: Problem comment: - Dr. Frank, perforated viscous, Sigmoidectomy, End colostomy, Identification of perfusion with ICG - routine post op cares - general surgery following up - 09/25: Overnight, NGT output was low and it was D/Eliud. Diet advanced to clear liquid. - 09/26: Pt tolerated clear liquids. Advance to regular diet today. Wound infection appeared to be worsening so incision was opened today at bedside. Murky fluid return. This was cultured. Will start daily wet-to-dry dressing changes. Status: Acute (2) Hypokalemia: Problem comment: Continue replacing his potassium Status: Acute (3) Complication of ostomy: Problem comment: retracted w/ some sloughing but improved Status: Acute (4) JOE (acute kidney injury): Problem comment: Creatinine trending down 2.8 -> 2.2 -> 1.6 -> JOE resolved Urine output improving s/p IV fluids 500 mL, IV maintenance. DC astorga catheter Status: Acute (5) Obesity: Status: Acute (6) Perforation bowel: Problem comment: Cont Zosyn Added vanc on 09/25 d/t concerns of increased redness of the lower abdominal part of his abd wound Status: Acute (7) Rhabdomyolysis: Problem comment: Trending down mild Status: Acute (8) Blood glucose elevated: Problem comment: - random check, no h/o DM, does have risk factor of obesity, check HgbA1c Status: Acute (9) Wheezing: Problem comment: History of smoking Ordered nebulizer with scheduled budesonide Will monitor Status: Acute (10) Elevated LFTs: Status: Acute Total Time Spent Total Time Spent: Today I spent 50 minutes seeing the patient, reviewing Expanse and EPIC notes/diagnostics, discussing the care plan with our care time that includes social work, PT/OT, pharmacy, RT, assisted and documenting my impressions and plan in the medical record. Subjective Date Seen: 09/25/24 Interval history: Patient seen and examined at bedside today. Pt tolerated clear liquids. Advance to regular diet today. Wound infection appeared to be worsening so incision was opened today at bedside. Murky fluid return. This was cultured. Will start daily wet-to-dry dressing changes. Exam Narrative: Exam Narrative: Physical exam GENERAL: Comfortable, no acute distress. HEAD AND NECK: Atraumatic, normocephalic CARDIOVASCULAR: RRR. Normal S1, S2. No murmurs. RESPIRATORY: Clear to auscultation B/L. Good air entry B/L. No wheezes or rhonchi. GASTROINTESTINAL: Not distended, not tender to palpation. stoma w/ stool. wound lower part w/ more redness. NEUROLOGY: Alert, awake, oriented X 3. Normal speech. No focal weakness. PSYCH: Normal mood, normal affect. Const: Vital Signs, click to edit/add: Vital Signs - 24 hr 09/25/24 14:56 09/25/24 15:00 09/25/24 15:00 Temperature 98.5 F Pulse Rate 88 Pulse Rate [Left P ulse Oximeter] 75 Respiratory Rate 18 18 Blood Pressure [R forearm] 180/107 H Pulse Oximetry 97 [facility] 09/25/24 21:20 09/25/24 23:00 09/25/24 23:00 Temperature 97 F L 98.2 F Pulse Rate Pulse Rate [Left P ulse Oximeter] 77 78 Respiratory Rate 18 18 Blood Pressure [R forearm] 152/98 H 138/87 Pulse Oximetry 94 98 93 [facility] Room [facility] Room Air 09/25/24 23:00 09/25/24 23:00 09/26/24 03:00 Temperature Pulse Rate 68 Pulse Rate [Left P ulse Oximeter] 78 60 Respiratory Rate 18 16 Blood Pressure [R forearm] Pulse Oximetry [facility] 09/26/24 07:00 09/26/24 07:00 09/26/24 07:00 Temperature 97.6 F Pulse Rate Pulse Rate [Left P ulse Oximeter] 84 84 Respiratory Rate 18 18 18 Blood Pressure [R forearm] 157/97 H Pulse Oximetry 96 96 [facility] Room Air 09/26/24 07:00 09/26/24 11:00 Temperature 97.6 F Pulse Rate 66 Pulse Rate [Left P ulse Oximeter] 80 Respiratory Rate 16 Blood Pressure [R forearm] 156/101 H Pulse Oximetry 96 [facility] Labs Labs: Laboratory Results - last 24 hr 09/26/24 09/26/24 05:58 09:37 WBC 15.61 H RBC 4.22 L Hgb 12.3 L Hct 37.6 MCV 89 MCH 29 MCHC 33 Plt Count 328 Sodium 136 Potassium 3.1 L Chloride 101 Carbon Dioxide 29 Anion Gap 6 L BUN 28 H Creatinine 1.0 Estimated Creat Clear 92.30 Estimated GFR 94 Glucose 136 H Calcium 7.7 L Total Bilirubin 0.6 AST 80 H ALT 64 H Alkaline Phosphatase 110 C-Reactive Protein 4.8 H Total Protein 6.1 Albumin 2.7 L Lab Acknowledgement Test Added
[2024-09-26] MEDS: POTASSIUM CHLORIDE 10 MEQ CAPSULE ER 60 MEQ PO (15:09)
--- NOTE | 2024-09-26 18:46 | PC.NURSE ---
End of Shift: Patient pleasant and cooperative, A&O. VSS, afebrile. SpO2 maintained above 90% on RA. Redness noted to incision site. Tolerating regular diet. Up independently in room.
--- NOTE | 2024-09-26 23:00 | PC.NURSE ---
15-23: The patient is pleasant with cares, VS on RA, reported that his pain is manageable.Lower abdominal wound care was completed per order. The patient tolerated this ok, considering the packing is quite deep. Still decently reddened surrounding the radha. Up and walking in the halls and ice pack to abdomen when at rest. Tolerating a regular diet, although advancing slowly. Simi MATTA BSN
[2024-09-27] VITALS (8 sets, daily range): BP systolic 135–160; BP diastolic 79–111; PULSE 64–79; RESP 16–20; TEMP 36.4–36.7; O2SAT 95–98
[2024-09-27] MEDS: HYDROCODONE-ACETAMIN 5-325 MG 1 TAB PO ×2 (03:26→22:48)
--- NOTE | 2024-09-27 06:40 | PC.NURSE ---
Pt alert and oriented x3. Afebrile. Pt reports 7/10 pain in abdomen, pain managed with ice pack and PRN medications. Pt?s abdominal incision is CDI. Pt?s redness around packed wound was outlined and has not exceeded outline. Pt?s ostomy is patent and draining brown liquid and small amount of soft stool. Pt is up ad khushbu walking halls, voiding, and tolerating a regular diet. ?
[2024-09-27 07:01] LABS: Hematocrit 37.3 % (37.0-53.0); Hemoglobin* 12.1 gm/dL (13.5-17.5); Mean Corpuscular HGB Conc 32 gm/dL (32-36); Mean Corpuscular Hemoglobin 29 pg (26-34); Mean Corpuscular Volume 89 fL (80-100); Platelet Count* 310 K/uL (140-440); Red Blood Count 4.19 m/uL (4.30-5.90); White Blood Count* 14.02 K/uL (4.50-11.00)
[2024-09-27 07:05] LABS: Slide Review Reflex No
[2024-09-27 07:14] LABS: Albumin* 2.7 g/dL (3.3-5.0); Chloride* 104 mmol/L (96-114); Potassium* 3.5 mmol/L (3.6-5.1); Sodium* 137 mmol/L (135-149)
[2024-09-27 07:17] LABS: Alanine Aminotransferase* 50 U/L (4-50); Alkaline Phosphatase* 95 U/L (40-150); Anion Gap 5 mEq/L (7-15); Aspartate Amino Transferase* 56 U/L (12-35); Bilirubin Total* 0.5 mg/dL (0.1-1.5); Blood Urea Nitrogen* 22 mg/dL (5-24); Carbon Dioxide* 28 mmol/L (20-32); Estimated Glomerular Filt Rate 94 ml/min; Total Protein* 5.9 g/dL (6.0-8.3)
[2024-09-27 07:18] LABS: Calcium* 7.7 mg/dL (8.4-10.6); Glucose* 125 mg/dL (60-115)
[2024-09-27] MEDS: ENOXAPARIN 40 MG/0.4 ML INJ SUBCUT ×2 (08:36→20:44)
[2024-09-27] MEDS: BUDESONIDE 0.5 MG/2ML NEB NEB ×2 (08:37→20:44)
[2024-09-27] MEDS: ERTAPENEM 1 GM in 0.9 % SODIUM CHLORIDE Mini-bag 100 ML IVPB (09:01)
[2024-09-27] MEDS: SODIUM CHLORIDE 0.9 % (FLUSH) 10 ML SYRINGE 5 ML IVF ×2 (09:02→20:45)
--- NOTE | 2024-09-27 12:04 | PM.GSPN ---
Subjective Subjective Date Seen: 09/27/24 Interval history: Filiberto is doing well. Denies any nausea. Has been trying to go slow with his diet. He is still having stoma output. He remains afebrile. Exam Narrative: Exam Narrative: General: No acute distress CV: Regular rate Respiratory: Breathing nonlabored on room air Abdomen: Protuberant. Coma: Copious stool noted within the bag. Stoma is retracted and not visualized. Periwound erythema has markedly improved today. Wound repacked at bedside. No purulent drainage. Const: Vital Signs, click to edit/add: Vital Signs - 24 hr 09/26/24 15:00 09/26/24 15:00 09/26/24 15:00 Temperature 97.5 F L Pulse Rate Pulse Rate [Left P ulse Oximeter] 77 77 Respiratory Rate 18 18 18 Blood Pressure [Le ft Arm] Blood Pressure [R forearm] 150/83 H Pulse Oximetry [address] [facility] Room Air 09/26/24 15:00 09/26/24 19:00 09/26/24 22:37 Temperature 97.6 F Pulse Rate 81 Pulse Rate [Left P ulse Oximeter] 81 78 Respiratory Rate 18 18 Blood Pressure [Le ft Arm] 153/89 H 147/79 H Blood Pressure [R forearm] Pulse Oximetry [address] [facility] Room Air 09/26/24 22:37 09/26/24 22:37 09/26/24 22:48 Temperature Pulse Rate 75 Pulse Rate [Left P ulse Oximeter] Respiratory Rate 18 18 Blood Pressure [Le ft Arm] Blood Pressure [R forearm] Pulse Oximetry [address] [facility] [facility] 09/27/24 03:21 09/27/24 09:00 Temperature 97.7 F 97.7 F Pulse Rate Pulse Rate [Left P ulse Oximeter] 75 71 Respiratory Rate 18 18 Blood Pressure [Le ft Arm] 146/79 H Blood Pressure [R forearm] 135/91 H Pulse Oximetry [address] [facility] Room Air Labs/Imaging Labs Labs: Wound culture from yesterday shows no growth after 24 hours White blood cell count 14 from 15 Hemoglobin stable at 12.1 from 12.3 Mild hypokalemia at 3.5. LFTs returning to normal with AST only mildly elevated at 56. CRP yesterday was down to 4.8. Pathology reviewed: Diverticulitis with rupture Tubular adenoma, 1.6 cm Negative for high-grade dysplasia or malignancy. One benign lymph node. Progress Note:A&P Assessment and plan (1) Hypokalemia: Status: Acute (2) Complication of ostomy: Status: Acute (3) JOE (acute kidney injury): Status: Acute (4) Elevated LFTs: Status: Acute (5) S/P exploratory laparotomy: Status: Acute (6) Obesity: Status: Acute Plan The patient is a 44-year-old male who is now postop day 6 status post exploratory laparotomy, sigmoid resection and end colostomy for perforated diverticulitis with free peritoneal air an abscess. -tolerating regular diet and with return of bowel function. -periwound erythema improved after opening incision. Wound culture negative to date. Daily wet to dry dressing changes with Vashe. Will have to come in for daily dressing changes after discharge to surgery clinic. -Lovenox for DVT prophylaxis, weight based -continue stoma teaching. Patient does have follow-up this week in ostomy Clinic, however, he will need to know how to troubleshoot. -continue IS and ambulation. -switch to p.o. antibiotics today. -pathology revealed with the patient. Confirms diagnosis of diverticulitis. Also found to have a benign advanced adenoma. He will need a colonoscopy prior to colostomy takedown.
--- NOTE | 2024-09-27 16:09 | PC.NURSE ---
Shift Summary: Patient pleasant and cooperative. Up independently, walking in halls throughout day. Given education on diet and resources for coloplast, encouraged to use crystal and participate in ostomy management. Has had 100cc out of liquid stool from ostomy. Patient having soft foods, denies abdominal pain with meals, states he has some aching in belly at rated at worst a 2/10, denied need for medication.
[2024-09-27] MEDS: AMOXICILLIN/CLAVULANATE 875 mg/125 mg TABLET PO (17:42)
--- NOTE | 2024-09-27 18:14 | PM.IMPN1 ---
Assessment and Plan Assessment and plan (1) S/P exploratory laparotomy: Problem comment: - Dr. Frank, perforated viscous, Sigmoidectomy, End colostomy, Identification of perfusion with ICG - routine post op cares - general surgery following up - 09/25: Overnight, NGT output was low and it was D/Eliud. Diet advanced to clear liquid. - 09/26: Pt tolerated clear liquids. Advance to regular diet today. Wound infection appeared to be worsening so incision was opened today at bedside. Murky fluid return. This was cultured. Will start daily wet-to-dry dressing changes. Status: Acute (2) JOE (acute kidney injury): Problem comment: Creatinine trending down 2.8 -> 2.2 -> 1.6 -> JOE resolved Urine output improving s/p IV fluids 500 mL, IV maintenance. DC astorga catheter Status: Acute (3) Hypokalemia: Problem comment: Continue replacing his potassium Status: Acute (4) Complication of ostomy: Problem comment: retracted w/ some sloughing but improved Status: Acute (5) Elevated LFTs: Problem comment: Stable to improved. Status: Acute (6) Obesity: Status: Acute (7) Blood glucose elevated: Problem comment: - random check, no h/o DM, does have risk factor of obesity, HgbA1c is 6.6. Blood sugars have been fairly well controlled in the low 100s Status: Acute Plan Continue in hospital for additional management of surgical wound and recovery from surgery. Anticipate possible discharge to home tomorrow. Total Time Spent Total Time Spent: Total time spent today is 45 minutes in coordination of care and discussing with patient and other providers ongoing plan of care. Subjective Date Seen: 09/27/24 Interval history: Admission HPI: Filiberto Porter is a 44 year old male who presented to the emergency department with worsening abdominal pain, nausea and vomiting. He says that the pain started in his lower abdomen and felt similar to a UTI. He describes it as an aching pain that would come and go. Denies any pain with urination or fevers. Over last 24 hours the pain moved from in his lower abdomen up to above his belly button. It also became more severe. He has had a decrease in appetite over the last week. Yesterday he started vomiting. He has been unable to keep down any liquids for the last 12 hours. He has been taking ibuprofen and Tylenol intermittently for the pain. No other medications on a regular basis. Patient does not see a doctor regularly. He smokes on a daily basis. Does suffer from obesity, no known history of diabetes. His past surgical history is positive for a hernia repair as an . Patient was taken to the OR on the day of admission for emergent surgery by Dr. Frank for exploratory laparotomy with sigmoidectomy and end colostomy. Postoperatively he has had slow recovery. He did have acute kidney injury which has resolved with fluid resuscitation. He did have some wound infection at the lower end of his incision. This was opened up to drain and get packed. He is tolerating a diet fairly well. Small liquid stool coming from his colostomy. Exam Narrative: Exam Narrative: He is alert and appears in no distress. Mood and affect are bright. Respirations are clear to auscultation. Cardiovascular: S1, S2, regular rate and rhythm. Abdomen: Bowel sounds active. Abdomen is protuberant. Upper portion of that laparotomy incision is stapled sat with minimal erythema around the radha. Lower portion is open and packed with gauze. No marked erythema. Mild tenderness consistent with his postoperative status. Const: Vital Signs, click to edit/add: Vital Signs - 24 hr 09/26/24 19:00 09/26/24 22:37 09/26/24 22:37 Temperature 97.6 F Pulse Rate Pulse Rate [Left P ulse Oximeter] 81 78 Respiratory Rate 18 18 18 Blood Pressure [Le ft Arm] 153/89 H 147/79 H Blood Pressure [R forearm] Pulse Oximetry 97 97 [facility] Room [facility] 09/26/24 22:37 09/26/24 22:48 09/27/24 03:21 Temperature 97.7 F Pulse Rate 75 Pulse Rate [Left P ulse Oximeter] 75 Respiratory Rate 18 18 Blood Pressure [Le ft Arm] Blood Pressure [R forearm] 135/91 H Pulse Oximetry 97 98 [facility] Room Air 09/27/24 09:00 09/27/24 09:00 09/27/24 11:00 Temperature 97.7 F 97.9 F Pulse Rate Pulse Rate [Left P ulse Oximeter] 71 74 Respiratory Rate 18 16 16 Blood Pressure [Le ft Arm] 146/79 H 147/90 H Blood Pressure [R forearm] Pulse Oximetry 95 97 97 [facility] Room Air Room Air 09/27/24 12:47 09/27/24 15:00 09/27/24 15:00 Temperature Pulse Rate 70 71 Pulse Rate [Left P ulse Oximeter] 79 Respiratory Rate 18 Blood Pressure [Le ft Arm] Blood Pressure [R forearm] Pulse Oximetry Oxygen Delivery [facility] 09/27/24 15:00 09/27/24 15:00 Temperature 97.8 F Pulse Rate Pulse Rate [Left P ulse Oximeter] 79 Respiratory Rate 18 18 Blood Pressure [Le ft Arm] 160/111 H Blood Pressure [R forearm] Pulse Oximetry 95 95 Oxygen Delivery [facility] Room Air Room Air Documenting provider has reviewed patient's vital signs: yes Labs Labs: Laboratory Results - last 24 hr 09/27/24 06:29 WBC 14.02 H RBC 4.19 L Hgb 12.1 L Hct 37.3 MCV 89 MCH 29 MCHC 32 Plt Count 310 Sodium 137 Potassium 3.5 L Chloride 104 Carbon Dioxide 28 Anion Gap 5 L BUN 22 Creatinine 1.0 Estimated Creat Clear 92.30 Estimated GFR 94 Glucose 125 H Calcium 7.7 L Total Bilirubin 0.5 AST 56 H ALT 50 Alkaline Phosphatase 95 Total Protein 5.9 L Albumin 2.7 L
--- NOTE | 2024-09-27 18:58 | PC.NURSE ---
Nursing Care Hours: [id number] Pt this shift calm and cooperative, alert and oriented. No c/o pain. Emptied ostomy bag independently with technical proposal writer in the room. Some education provided. Independent ambulaiton. Slight redness to boarders of midline incision. Dressing to lower abdomen CDI. Tolerating regular diet.
[2024-09-28 03:30] VITALS: BP 115/78; PULSE 73; RESP 18; TEMP 36.6; O2SAT 98
--- NOTE | 2024-09-28 07:03 | PC.NURSE ---
Pt alert and oriented x3. Afebrile. Pt reports 5/10 pain in abdomen, pain managed with ice pack and PRN medications. Pt?s abdominal incision is CDI. Pt?s redness/pink area around packed wound has receded from outlined. Pt?s ostomy is patent and draining liquid, brown stool. Pt is up ad khushbu walking halls, voiding, and tolerating a regular diet.?
[2024-09-28] MEDS: AMOXICILLIN/CLAVULANATE 875 mg/125 mg TABLET PO (08:31)
[2024-09-28 08:40] VITALS: PULSE 71
[2024-09-28 08:46] VITALS: BP 125/83; PULSE 79; RESP 16; TEMP 36.6; O2SAT 96
[2024-09-28] MEDS: ENOXAPARIN 40 MG/0.4 ML INJ SUBCUT (09:05)
[2024-09-28] MEDS: SODIUM CHLORIDE 0.9 % (FLUSH) 10 ML SYRINGE 5 ML IVF (09:05)
[2024-09-28] MEDS: BUDESONIDE 0.5 MG/2ML NEB NEB (09:05)
--- NOTE | 2024-09-28 09:28 | P.DS_ITS ---
DS: Providers Provider Date Seen: 09/28/24 Date of admission: 09/21/24 16:42 Primary care physician: Not a Local Provider Admitting Clinician: Kayla Weeks MD Consults: 09/21/24 16:50 Consult to Nutrition [CONS] Routine Comment: Reason for consult:: Miscellaneous Comment: ostomy Consult to Physician [CONS] Routine Comment: Consulting Provider: Kayla Weeks Has provider been notified: Yes Consult to Respiratory Therapy [CONS] Routine Comment: Reason(s) for RT Consult:: Consult Comment: BECKY 09/22/24 08:30 Consult to [employer] Developer [CONS] Routine Comment: Reason for Consult:: Discharge Planning Needs 09/23/24 12:23 Consult to Wound Care [CONS] Routine Comment: new ostomy Consulting Provider: Roma Pineda 09/23/24 13:51 Consult to Nutrition [CONS] Routine Comment: Reason for consult:: Nutritional Consult Comment: new ostomy Attending Physician on discharge: Shaista Frank MD Date of Discharge: 09/28/24 DS: Diagnosis Discharge Diagnosis (1) S/P exploratory laparotomy: Status: Acute Problem details: sigmoidectomy and end colostomy for perforated diverticulitis (2) Obesity: Status: Acute (3) Blood glucose elevated: Status: Acute Problem details: - random check, no h/o DM, does have risk factor of obesity, HgbA1c is 6.6. Blood sugars have been fairly well controlled in the low 100s (4) Elevated LFTs: Status: Acute Problem details: Stable to improved. (5) JOE (acute kidney injury): Status: Acute Problem details: Creatinine trending down 2.8 -> 2.2 -> 1.6 -> JOE resolved (6) Complication of ostomy: Status: Acute Problem details: retracted w/ some sloughing but improved DS: Summary Hospital Course Hospital Course: The patient is a 44-year-old male who presented to the emergency department on 09/21/24 with abdominal pain. He was found to have free intraperitoneal air and fluid concerning for hollow viscus perforation. He went to the OR for emergency laparotomy. There he was found to have what appeared to be perforated sigmoid diverticulitis. He underwent sigmoidectomy with end colostomy. Postoperatively he was placed on antibiotics to cover for his intra-abdominal infection. He was found to have acute kidney injury with elevation of his creatinine. He had a very mildly elevated CK. His antibiotics were switched from Zosyn to ertapenem and he was given additional fluids for resuscitation. His kidney function did return to normal over the course of his hospital stay. His stoma was noted to have some superficial ischemic changes and was retracted, however did appear viable. He underwent stoma teaching with our wound ostomy expert as well as nursing staff. Nutrition did also consult. He did have appropriate return of bowel function postoperatively and was tolerating a regular diet. His incision appeared reddened postoperatively at the inferior aspect. This was monitored for several days and his antibiotics were broadened, however the redness did not improve. Finally, several manuel removed from the inferior aspect of the incision. A fair amount of murky fluid was drained. This did not grow any bacteria in culture, however the erythema improved after opening the incision. The patient then underwent wet to dry dressing changes daily. He was able to ambulate without difficulty, had good pain control on oral medication and was tolerating regular diet. He was deemed safe for discharge [place] on postop day 7 with plans for short-term follow-up with outpatient dressing changes in clinic. Status at Discharge Functional status at discharge: independent ambulation Time Spent with Patient Time attestation: Total time spent providing and/or coordinating discharge services: Exam Narrative: Exam Narrative: General: No acute distress Respiratory: Breathing nonlabored on room air CV: Regular rate and rhythm Abdomen: Protuberant. Incision is without erythema other than irritation around mnauel. Open area without purulent drainage. This was redressed today at bedside. Stoma with stool noted in the bag. Const: Vital Signs, click to edit/add: Vital Signs - 24 hr 09/27/24 11:00 09/27/24 12:47 09/27/24 15:00 Temperature 97.9 F Pulse Rate 70 71 Pulse Rate [Left P ulse Oximeter] 74 Respiratory Rate 16 Blood Pressure [Le ft Arm] 147/90 H Blood Pressure [R forearm] Pulse Oximetry 97 Oxygen Delivery Md thod Room Air 09/27/24 15:00 09/27/24 15:00 09/27/24 15:00 Temperature 97.8 F Pulse Rate Pulse Rate [Left P ulse Oximeter] 79 79 Respiratory Rate 18 18 18 Blood Pressure [Le ft Arm] 160/111 H Blood Pressure [R forearm] Pulse Oximetry 95 95 Oxygen Delivery Me thod Room Air Room Air 09/27/24 20:25 09/27/24 22:45 09/27/24 22:45 Temperature 98.0 F 97.5 F L Pulse Rate Pulse Rate [Left P ulse Oximeter] 77 70 Respiratory Rate 18 20 20 Blood Pressure [Le ft Arm] 156/86 H Blood Pressure [R forearm] 144/90 H Pulse Oximetry 97 97 97 Oxygen Delivery Me thod Room Air Room Air Room Air 09/27/24 23:09 09/28/24 03:30 09/28/24 08:40 Temperature 97.8 F Pulse Rate 64 71 Pulse Rate [Left P ulse Oximeter] 73 Respiratory Rate 18 Blood Pressure [Le ft Arm] Blood Pressure [R forearm] 115/78 Pulse Oximetry 98 Oxygen Delivery Me thod Room Air 09/28/24 08:46 09/28/24 08:46 Temperature 97.9 F Pulse Rate Pulse Rate [Left P ulse Oximeter] 79 Respiratory Rate 16 16 Blood Pressure [Le ft Arm] 125/83 Blood Pressure [R forearm] Pulse Oximetry 96 96 Oxygen Delivery Me thod Room Air Room Air DS: Data Data Completed and Pending Pending studies at discharge: None Labs on day of discharge: Preliminary micro results at discharge 09/26/24 Unknown Wound Culture - Preliminary Abdomen NO GROWTH AFTER 24 HOURS Discharge Plan Discharge Disposition: Home, Self-Care Date of Admission: 09/21/24 16:42 Consulting Providers: Kayla Weeks Christina Primary Care Provider: Provider,Not a Local Condition: Stable Anticipated Discharge Date/Time: 09/28/24 09:37 Discharge Medications: New hydrocodone-acetaminophen 5-325 mg Tablet 1 - 2 tab PO Q6H PRN (Reason: Pain) Qty: 25 0RF amoxicillin-pot clavulanate 875-125 mg Tablet 1 tab PO BIDWM Qty: 8 0RF Discharge Orders: Discharge Order (Routine); Ordered 09/28/24 Ordered By: Gaby Go Patient Education: Hydrocodone/Acetaminophen (By mouth), Amoxicillin/Clavulanate Potassium (By mouth), Colostomy Care (DC), Perforated Bowel (GEN) Additional Instructions: Wound care: Manuel will be removed when you follow up with Dr. Frank Follow up in Surgery Clinic on [address] for Nurse wound change. If you need to shower and the dressing on the lower abdominal wound is not due to be changed, cover with saran wrap and tape to keep dry. Pat the incisions dry. No need to wash or scrub the area. Avoid bathing, soaking or swimming until the wound is completely healed. Apply ice to the area as needed for swelling. It is also OK to use a heating pad if this provides more comfort to you. Pain control: You were prescribed a pain medication. This medication contains acetaminophen (Tylenol). If you are taking your prescribed pain pills 4 times daily, do not take additional acetaminophen. As your pain improves, you can try taking acetaminophen instead of the prescribed pain pill. Follow-up Follow up with Dr. Frank on October 02 at [facility]. You should establish primary care with a provider after discharge Please call if you are experiencing severe pain, nausea, vomiting, difficulty urinating, fever or the output of your stoma stops. Activity Level: Activity as Tolerated and No strenuous activity Discharge Diet: Regular Follow Up Appointments: Shaista Frank MD [Staff Physician] - (Make appointment for October 02) Provider,Not a Local [Primary Care Provider] - Roma Pineda APRN [Nurse Practitioner] - 10/02/24 12:15 pm ([facility] for follow-up.) Forms: RUN Info Instructions
--- NOTE | 2024-09-28 12:11 | PM.DS1 ---
DS: Providers Provider Date Seen: 09/28/24 Date of admission: 09/21/24 16:42 Primary care physician: Not a Local Provider Admitting Clinician: Kayla Weeks MD Attending Physician on discharge: Bennett Dudley MD Date of Discharge: 09/28/24 DS: Diagnosis Discharge Diagnosis (1) Perforation bowel: Status: Acute Problem details: Cont Zosyn Added vanc on 09/25 d/t concerns of increased redness of the lower abdominal part of his abd wound (2) Complication of ostomy: Status: Acute Problem details: retracted w/ some sloughing but improved (3) S/P exploratory laparotomy: Status: Acute Problem details: sigmoidectomy and end colostomy for perforated diverticulitis (4) Hypokalemia: Status: Acute Problem details: Resolved after replacement. (5) JOE (acute kidney injury): Status: Acute Problem details: Creatinine trending down 2.8 -> 2.2 -> 1.6 -> JOE resolved with fluid resuscitation postoperative (6) Elevated LFTs: Status: Acute Problem details: Stable to improved. Suspect fatty liver (7) Obesity: Status: Acute Problem details: Fairly severe central obesity. At risk for surgical complications from abdominal wound. Metabolic syndrome. Consider weight loss drugs. (8) Blood glucose elevated: Status: Acute Problem details: Hemoglobin A1c is 6.6. Establish care with primary physician to address diabetes, hypertension, obesity, metabolic syndrome. (9) Hypertension: Status: Acute Problem details: Outpatient primary care to address hypertension and other chronic medical problems DS: Summary Hospital Course Hospital Course: The patient is a 44-year-old male who presented to the emergency department on 09/21/24 with abdominal pain. He was found to have free intraperitoneal air and fluid concerning for hollow viscus perforation. He went to the OR for emergency laparotomy. There he was found to have what appeared to be perforated sigmoid diverticulitis. He underwent sigmoidectomy with end colostomy. Postoperatively he was placed on antibiotics to cover for his intra-abdominal infection. He was found to have acute kidney injury with elevation of his creatinine. He had a very mildly elevated CK. His antibiotics were switched from Zosyn to ertapenem and he was given additional fluids for resuscitation. His kidney function did return to normal over the course of his hospital stay. His stoma was noted to have some superficial ischemic changes and was retracted, however did appear viable. He underwent stoma teaching with our wound ostomy expert as well as nursing staff. Nutrition did also consult. He did have appropriate return of bowel function postoperatively and was tolerating a regular diet. His incision appeared reddened postoperatively at the inferior aspect. This was monitored for several days and his antibiotics were broadened, however the redness did not improve. Finally, several manuel removed from the inferior aspect of the incision. A fair amount of murky fluid was drained. This did not grow any bacteria in culture, however the erythema improved after opening the incision. The patient then underwent wet to dry dressing changes daily. He was able to ambulate without difficulty, had good pain control on oral medication and was tolerating regular diet. He was deemed safe for discharge home on postop day 7 with plans for short-term follow-up with outpatient dressing changes in clinic. Discussed with patient today the need for outpatient primary care follow-up. Patient has multiple comorbid medical problems that need to be addressed. These include diabetes, hypertension, morbid obesity, probable fatty liver, possible sleep apnea, possible dyslipidemia. Patient indicates that he will set up his own appointment with 1 of the local clinics. Status at Discharge Overall status at discharge: patient is progressing back to baseline Time Spent with Patient Time attestation: Total time spent providing and/or coordinating discharge services: Time spent: Less than 30 minutes Exam Narrative: Exam Narrative: He is alert and in no distress. Ambulating around the room independently. Abdomen is soft. Staple line with mild erythema. Lower incision with gauze packing. Const: Vital Signs, click to edit/add: Vital Signs - 24 hr 09/27/24 12:47 09/27/24 15:00 09/27/24 15:00 Temperature Pulse Rate 70 71 Pulse Rate [Left P ulse Oximeter] 79 Respiratory Rate 18 Blood Pressure [Le ft Arm] Blood Pressure [R forearm] Pulse Oximetry Oxygen Delivery Me thod 09/27/24 15:00 09/27/24 15:00 09/27/24 20:25 Temperature 97.8 F 98.0 F Pulse Rate Pulse Rate [Left P ulse Oximeter] 79 77 Respiratory Rate 18 18 18 Blood Pressure [Le ft Arm] 160/111 H Blood Pressure [R forearm] 144/90 H Pulse Oximetry 95 95 97 Oxygen Delivery Me thod Room Air Room Air Room Air 09/27/24 22:45 09/27/24 22:45 09/27/24 23:09 Temperature 97.5 F L Pulse Rate 64 Pulse Rate [Left P ulse Oximeter] 70 Respiratory Rate 20 20 Blood Pressure [Le ft Arm] 156/86 H Blood Pressure [R forearm] Pulse Oximetry 97 97 Oxygen Delivery Me thod Room Air Room Air 09/28/24 03:30 09/28/24 08:40 09/28/24 08:46 Temperature 97.8 F Pulse Rate 71 Pulse Rate [Left P ulse Oximeter] 73 Respiratory Rate 18 16 Blood Pressure [Le ft Arm] Blood Pressure [R forearm] 115/78 Pulse Oximetry 98 96 Oxygen Delivery Me thod Room Air Room Air 09/28/24 08:46 Temperature 97.9 F Pulse Rate Pulse Rate [Left P ulse Oximeter] 79 Respiratory Rate 16 Blood Pressure [Le ft Arm] 125/83 Blood Pressure [R forearm] Pulse Oximetry 96 Oxygen Delivery Me thod Room Air Documenting provider has reviewed patient's vital signs: yes DS: Data Data Completed and Pending Labs on day of discharge: Preliminary micro results at discharge 09/26/24 Unknown Wound Culture - Preliminary Abdomen Imaging CT scan - abdomen: Radiologist's impression: INDICATION: Abdominal pain COMPARISON: Portions of a June 18, 2015 study. TECHNIQUE: CT examination of the abdomen and pelvis was performed following the uneventful intravenous administration of 150 cc of Isovue 370. Thin section axial images were obtained from the lung bases through the pubic symphysis. Oral contrast was not administered. Please note that all CT scans at this facility use dose modulation, iterative reconstruction, and/or weight-based dosing when appropriate to reduce radiation dose to as low as reasonably achievable. FINDINGS: LUNG BASES: The lung bases as visualized appear normal.The heart size is normal at the lung bases. LIVER/BILIARY SYSTEM:Enlarged fatty infiltrated liver.No focal mass or biliary ductal dilation. There is probably a faintly seen gallstone within the gallbladder. This was more apparent on the prior study. No evidence of acute cholecystitis or common duct obstruction. ADRENALS: Probably benign small adrenal nodules. Is slightly more prominent than previously. KIDNEYS, URETERS and BLADDER:Normal-sized kidneys. Urolithiasis but no evidence current or recent obstructive uropathy. The bladder is decompressed but otherwise unremarkable in appearance SPLEEN:Normal appearance. PANCREAS: Appears normal. RETROPERITONEUM and MESENTERY: There is mesenteric lymphadenopathy and a significant inflammatory process in the mesentery. A collection is identified in the central mesentery closely associated with a loop of small bowel, probably jejunum. The jejunum is dilated and thickened in this area. The collection measures 7.8 x 6.5 by 4.9 centimeters. There is also fluid and air identified elsewhere within the mesentery and a small amount of free intraperitoneal air. The findings are consistent with a perforated viscus, probably a loop of jejunum. Etiology is uncertain. Do not see a diverticulum or a mass. GASTROINTESTINAL SYSTEM: There is no evidence of diverticulitis, colitis, mechanical obstruction, or appendicitis. The small bowel as visualized appears normal. PELVIS: No mass or adenopathy. OSSEOUS STRUCTURES and ABDOMINAL WALL: There is an age-appropriate appearance of the osseous structures.No significant abdominal wall defect. OTHER: No free fluid or free air. I discussed the above findings with Dr. Lowe at 8:50 a.m. on September 21, 2024 Impression: : 1. Adenopathy, inflammatory change, free air, free fluid and collection in the central mesentery. The collection measures 7.8 x 6.5 x 4.9 centimeters. Of note, the collection does not appear to be thick walled as might be seen in an organized collection. This is adjacent to and probably arising from adjacent jejunum. The jejunum and this area is thickened and dilated but I do not directly seen underlying pathology such as a diverticulum or tumor. The exact etiology of the presumed perforated jejunum with adjacent collection is not visible on the exam. Surgical consultation is advised. 2. Other nonacute appearing findings as above Discharge Plan Discharge Disposition: Home, Self-Care Date of Admission: 09/21/24 16:42 Consulting Providers: Kayla Weeks Christina Primary Care Provider: Provider,Not a Local Condition: Stable Anticipated Discharge Date/Time: 09/28/24 09:37 Discharge Medications: New hydrocodone-acetaminophen 5-325 mg Tablet 1 - 2 tab PO Q6H PRN (Reason: Pain) Qty: 25 0RF amoxicillin-pot clavulanate 875-125 mg Tablet 1 tab PO BIDWM Qty: 8 0RF Discharge Orders: Discharge Order (Routine); Ordered 09/28/24 Ordered By: Gaby Go Patient Education: Hydrocodone/Acetaminophen (By mouth), Amoxicillin/Clavulanate Potassium (By mouth), Colostomy Care (DC), Perforated Bowel (GEN) Additional Instructions: Wound care: Manuel will be removed when you follow up with Dr. Frank Follow up in Surgery Clinic on Sunday for Nurse wound change. If you need to shower and the dressing on the lower abdominal wound is not due to be changed, cover with saran wrap and tape to keep dry. Pat the incisions dry. No need to wash or scrub the area. Avoid bathing, soaking or swimming until the wound is completely healed. Apply ice to the area as needed for swelling. It is also OK to use a heating pad if this provides more comfort to you. Pain control: You were prescribed a pain medication. This medication contains acetaminophen (Tylenol). If you are taking your prescribed pain pills 4 times daily, do not take additional acetaminophen. As your pain improves, you can try taking acetaminophen instead of the prescribed pain pill. Follow-up Follow up with Dr. Frank on October 02 at [facility]. You should establish primary care with a provider after discharge Please call if you are experiencing severe pain, nausea, vomiting, difficulty urinating, fever or the output of your stoma stops. Find a physician to address medical problems including diabetes, high blood pressure and obesity. Make an appointment this week so you can have an appointment by the beginning of October Activity Level: Activity as Tolerated and No strenuous activity Discharge Diet: Regular Follow Up Appointments: Shaista Frank MD [Staff Physician] - ([facility] will call you with appointment time on Sunday. If you do not hear from the clinic, please call them at [phone] to verify appointment time. You should be seen by Dr. Frank on October 02.) Provider,Not a Local [Primary Care Provider] - Roma Pineda APRN [Nurse Practitioner] - 10/02/24 12:15 pm ([facility] for follow-up.) Forms: [employer] Info Instructions
--- NOTE | 2024-09-28 13:16 | PC.NURSE ---
Discharge: Patient pleasant and cooperative. Up independently, ambulating in halls. Gave resources on where to get supplies and support, patient states he has accessed the [employer] and gotten an email that supplies had been sent in the mail. Colostomy changed prior to discharge, patient given instructions on how to perform at home and shown how to cut to size to fit stoma. Discussed pain management at home. Reviewed discharge instructions, new medications, and follow ups needed. IV removed with catheter intact. Patient discharged @ 1132.
--- NOTE | 2024-09-30 13:29 | PC.SOCIAL ---
Social work consult: SW received orders for Home Health RN. YO called Dalila at [facility] and inquired about availability and patient's insurance. Dalila states that they would need to have the patient's insurance run through their prior authorization team, but states a lot of private insurances still follow Medicare guidelines of needing to be homebound. YO explained she would send a referral. YO spoke with patient who states that he is not interested in a Home Health RN as the home he is living in is not his and doesn't feel comfortable bringing strangers in because it isn't his own home. Patient asked why he can't receive education in the clinic like they said he could. SW explained that it sounds like more frequent teaching could be helpful in learning the cares he needs to do. Patient declined home health services and did not provide SW with an address. SW to assist if future needs arise and if parent does express interest in Home Health RN in the future.
--- NOTE | 2024-10-04 12:43 | PC.NURSE ---
Wound care: Dressing changed, measures 45cm deep and 110 cm long, steristrips noted at upper and lower end of incision site, per patient this was placed at previous appointment with the wound clinic. Colostomy changed yesterday by patient and noted to be leaking from one side, new bag applied and reviewed with patient how to manage/change at home.
== END 2024-09-28 11:32 | disposition home or self-care (01) | DRG 221 ==
LOC: ED 08:59 → SS 09:32 → MEDSURG 17:07
PROVIDERS: Family Medicine; Student in an Organized Health Care Education/Training Program; Surgery; Admitting Provider Family Medicine; Emergency Provider Internal Medicine; Visit Provider Surgery
PROC: 0DTN0ZZ Resection of Sigmoid Colon, Open Approach (ICD-10-PCS; CPT 49000; principal; 2024-09-21 11:00)
DX: K57.20 Diverticulitis of large intestine with perforation and abscess without bleeding (principal); K65.1 Peritoneal abscess; K94.01 Colostomy hemorrhage; K94.09 Other complications of colostomy; N17.9 Acute kidney failure, unspecified; T81.43XA Infection following a procedure, organ and space surgical site, initial encounter; T81.49XA Infection following a procedure, other surgical site, initial encounter; L03.311 Cellulitis of abdominal wall; T88.8XXA Other specified complications of surgical and medical care, not elsewhere classified, initial encounter; G89.18 Other acute postprocedural pain; M62.82 Rhabdomyolysis; R06.2 Wheezing; R73.9 Hyperglycemia, unspecified; E87.6 Hypokalemia; R74.01 Elevation of levels of liver transaminase levels; K76.0 Fatty (change of) liver, not elsewhere classified; E66.01 Morbid (severe) obesity due to excess calories; F17.210 Nicotine dependence, cigarettes, uncomplicated; Z68.43 Body mass index [BMI] 50.0-59.9, adult; I10 Essential (primary) hypertension; Z87.442 Personal history of urinary calculi; B95.7 Other staphylococcus as the cause of diseases classified elsewhere
CPT/HCPCS: 00790; 36415; 64488; 71045; 74177; 76942; 80048; 80053; 80076; 81001; 81003; 82550; 82803; 83036; 83605; 83690; 83735; 84132; 85025; 85027; 86140; 87070; 87081; 87086; 88307; 88309; 99140; 99284; 99285; A4314; A9270; J0330; J0665; J0666; J1100; J1171; J1335; J1630; J1650; J1885; J2405; J2543; J2704; J3372; J3475; J3480; J3490; J7030; J7050; J7120; J7626; Q9967

== ENCOUNTER 2024-10-11 10:42 | Outpatient (RCR) | payer BC, SELFPAY ==
--- NOTE | 2024-10-05 11:33 | PC.NURSE ---
Wound dressing: Dressing change done, measured 45cm deep, 28cm at widest part, and 110cm in length.
--- NOTE | 2024-10-11 12:23 | PC.NURSE ---
VSS. dressing to abd changed. Wound packed with xeroform and packed with dressing brought in by patient. measuring 2.5 cm. and covered with Abd.
== END 2025-01-09 23:59 | disposition home or self-care (01) ==
LOC: MS OUT 10:42
PROVIDERS: Visit Provider Surgery
DX: Z93.3 Colostomy status (principal); Z48.01 Encounter for change or removal of surgical wound dressing
CPT/HCPCS: G0463

== ENCOUNTER 2024-10-20 12:47 | Emergency (ER) | payer BC, SELFPAY ==
[2024-10-20 12:51] VITALS: BP 200/119; PULSE 71; RESP 20; TEMP 36.8; O2SAT 96; BMI 47.3
--- NOTE | 2024-10-20 13:19 | ED_ITS ---
HPI - General Adult General Date Seen: 10/20/24 Chief complaint: Hypertension Stated complaint: High BP Time Seen by Provider: 10/20/24 12:55 Source: patient, RN notes reviewed and old records reviewed Mode of arrival: ambulatory Limitations: no limitations History of Present Illness HPI narrative: Patient is a 44-year-old gentleman who was at the [facility], in follow-up of an ostomy, which found a blood pressure systolic of 233, he is otherwise asymptomatic, and reports to me that previously to COVID he was on blood pressure medication but does not know the name of it. He has says it has been off of it since then, they became excited with the high blood pressure at the wound center, sent him to the emergency room. He does not have a follow-up physician or primary care physician, he was in the hospital 4-5 weeks ago with with sounds like a bowel perforation in had to have an ostomy done by Dr. Frank. Denies any chest pain shortness of breath leg swelling, headaches, diplopia double vision or any other real symptoms. Denies use of any drugs or alcohol. Works at a [employer]. Does not take chronic NSAIDs. Related Data Previous Rx's ?Medication ?Instructions ?Recorded lisinopril 10 1 tab PO DAILY #30 tabs 10/20/24 mg-hydrochlorothiazide 12.5 mg tablet Allergies Allergy/AdvReac Type Severity Reaction Status Date / Time No Known Drug Allergies Allergy Verified 10/20/24 11:59 Review of Systems Status of ROS: Reports: 10 or more systems reviewed and unremarkable except as noted in History and below PFSH PFS Medical History Hypokalemia ?E87.6 - Hypokalemia (ICD-10) Obesity ?E66.9 - Obesity, unspecified (ICD-10) Hypertension ?I10 - Essential (primary) hypertension (ICD-10) Surgical History S/P exploratory laparotomy (09/21/24) ?Z98.890 - Other specified postprocedural states (ICD-10) Social History Narrative: Patient's mother, Sofya, is here with him. Denies alcohol or recreational drug use. Smokes 1/2ppd Smoking Status: Current every day smoker What tobacco products do you use: c igarettes How often do you have a drink containing alcohol: never AUDIT-C Alcohol total score: 0 Non-prescribed substance use: denies use service: No Exam Narrative: Exam Narrative: Patient is seen in room 5 he is in no apparent distress pleasant and alert, pupils equal round reactive to light there is no scleral icterus redness TMs are normal oropharynx is normal GCS is 15/15, nontoxic, carotid upstrokes are equal bilaterally, cranial nerves 3-12 are normal, chest is good air entry bilaterally no wheezing crackles noted heart sounds are normal, central obesity is noted, scars from left-sided ostomy are notable. He is healing up quite well. Skin reveals no petechiae rashes moves all extremities independently well, and there is no evidence of tremors Const: Vital Signs, click to edit/add: Vital Signs - 24 hr 10/20/24 12:51 Temperature 98.2 F Pulse Rate [Pulse Oximeter] 71 Respiratory Rate 20 [facility] 200[facility]119 H Pulse Oximetry 96 Oxygen Delivery Me thod Room Air Documenting provider has reviewed patient's vital signs: yes Course Course ED Course: Patient remains stable, his EKG was stable, previous laboratory tests he was unable to tell me the medication but looking back over old chart back in 2016 I see an abstract know where he was on lisinopril/hydrochlorothiazide, I will put him back on this medication, have make a follow-up appointment with Dr. Cabezas , going from here . Vital Signs Vital signs: Initial Vital Signs Temperature 98.2 F 10/20/24 12:51 Temperature Source Temporal Artery Scan 10/20/24 12:51 Pulse Rate 71 10/20/24 12:51 Respiratory Rate 20 10/20/24 12:51 Blood Pressure 200/119 H 10/20/24 12:51 Blood Pressure Mean 146 H 10/20/24 12:51 Blood Pressure Position Sitting 10/20/24 12:51 Pulse Oximetry 96 10/20/24 12:51 Oxygen Delivery Method Room Air 10/20/24 12:51 Vital Signs Temperature 98.2 F 10/20/24 12:51 Pulse Rate 71 10/20/24 12:51 Respiratory Rate 20 10/20/24 12:51 Blood Pressure 200/119 H 10/20/24 12:51 Pulse Oximetry 96 10/20/24 12:51 Oxygen Delivery Method Room Air 10/20/24 12:51 Temperature 98.2 F 10/20/24 12:51 Pulse Rate 71 10/20/24 12:51 Respiratory Rate 20 10/20/24 12:51 Blood Pressure 200/119 H 10/20/24 12:51 Pulse Oximetry 96 10/20/24 12:51 Oxygen Delivery Method Room Air 10/20/24 12:51 Medical Decision Making MDM Narrative Medical decision making narrative: I discussed with him that there is really no indication to come to the emergency room for elevated blood pressure unless he is having other symptoms. Since he is symptom free I did review that he did have elevated blood pressure well lease here, they recommended follow-up for him outpatient which she has not done. I have asked him to contact the pharmacy and see which medication he was on before hand, and we will make an appointment for him to see primary care, I will do an EKG. Just to be safe but is basic metabolic profile and CBC were normal as of September 26. We went over signs and symptoms Medical Records Medical records reviewed: Yes I reviewed the patient's medical records Medical records narrative: Reviewed his hospitalization that showed that he did have chronic hypertension line was here, Lab Data Lab results reviewed: Yes I reviewed the patient's lab results Lab results narrative: Reviewed laboratory tests from previous. In early September ECG Data Attestation: I personally reviewed and interpreted this ECG as follows: Prior ECG tracings: not available for review Interpretation: EKG shows normal sinus rhythm, with left ventricular hypertrophy the criteria, and is some ventricular rate is 67, QRS QT QTC are all normal. No acute ST wave changes. Discharge Plan Discharge Clinical Impression: Hypertension Patient Disposition: Home, Self-Care Condition: Stable Instructions: Hypertension (ED) Additional Instructions: Home rest, your on this medication in the past, I am not sure about the dosage, but we will start on low-dose and work her way up follow-up appointment made with primary care. Return if worsening is seen such as chest pain headaches, diplopia double vision Activity Level: Light activity Discharge Diet: Regular Prescriptions: New lisinopril-hydrochlorothiazide 10-12.5 mg tablet 1 tab PO DAILY Qty: 30 2RF Follow Up/Referrals: Provider,Not a Local [Primary Care Provider] - Mumtaz Lowe MD [Staff Physician] - Stand Alone Forms: vidIQth Info Instructions
== END 2024-10-20 14:20 | disposition home or self-care (01) ==
PROVIDERS: Emergency Provider Family Medicine
DX: I10 Essential (primary) hypertension (principal)
CPT/HCPCS: 99283; 99284

== ENCOUNTER 2024-12-23 08:25 | Outpatient (CLI) | payer BC, SELFPAY | END 2024-12-23 08:26 | disposition home or self-care (01) | PROVIDERS: PCP Internal Medicine; Visit Provider Internal Medicine | DX: I10 Essential (primary) hypertension (principal) | CPT/HCPCS: 80053; 80061 ==

== ENCOUNTER 2025-03-28 13:18 | Emergency (ER) | payer BC, SELFPAY ==
--- OUTSIDE RECORDS SUMMARY | 2025-02-12 08:30 | XMS_ITS | Encounter Summary ---
Author Organization [facility] Address [address] [place] [address] Care Team Providers Care Filer And Sander Name Role Phone Elsewhere, Pcp Primary Care Provider Unavailabl e Reason for Referral * Outpatient (Routine) - Closed Specialty Diagnoses / Procedures Referred By Latonya pimentel Referred To Contact Colon and Rectal Surgery Diagnoses Diverticulitis Of Small Intestine With Perforation And Abscess Without Bleeding Colostomy Status (HCC) Hypertension Essential Primary Traci Solorzano APRN, C.N.P., D.N.P. [address] [place] [address] Phone: tel: fax: [facility] Referral ID Status Reason Start Date Expiration Date Visits Re quested Visits Authorized [id number] Closed 02/12/2025 08/14/2026 1 1 Reason for Visit * Outpatient (Routine) - Closed Specialty Diagnoses / Procedures Referred By Contac t Referred To Contact Colon and Rectal Surgery Diagnoses Colostomy Status (HCC) Shaista Frank M.D. [address] [place] [address] Phone: tel: fax: [facility] Referral ID Status Reason Start Date Expiration Date Visits Re quested Visits Authorized [id number] Closed 01/01/2025 07/03/2026 1 1 Encounter Details Date Type Department Care Team (Latest Contact Info) Description 02/12/2025 8:30 AM CDT Comprehensive Visit Division of Colon and Rectal Surgery in [place], [place] [address] [place] [address] Traci Solorzano APRN, C.N.P., D.N.P. 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 - 02/12/2025 8:30 AM CDT The patient verbally consented to an audio recording of their visit to assist with the completion of documentation. SUBJECTIVE REASON FOR CONSULT Filiberto Porter is a 44 y.o. male who presents for evaluation of colostomy takedown. REFERRAL FROM: Shaista Frank M.D. [address] [place] [phone] HISTORY OF PRESENT ILLNESS Comorbidities pertinent to this visit include: hypertension, cigarette smoker (1-2 ppd), morbid obesity (BMI: 46.4), elevated blood glucose, elevated LFTs, History of Present Illness Mr. Filiberto Porter is a 44 year old gentleman who was referred to colon and rectal surgery clinic today for further evaluation for colostomy takedown. He is status post exploratory laparotomy, end colostomy, sigmoidectomy for perforated diverticulitis and viscus on 09/21/2024. He has a stenotic stoma. On 12/27/2024 his opening was about 5 mm and able to pass only a Q-tip, and was dilated in office by a local provider to 2 cm. He reports having had two additional dilations since 12/27/24. For the past 2 days, he has experienced watery stool output and discomfort around the stoma site, describing it as 'bulgy' and 'hard'. He manages discomfort by walking and drinking acidic beverages. Has not been taking a stool softener, because his stool output has been watery. He is concerned about the stoma shrinking and the potential need for further dilation. He denies nausea and vomiting, inability to tolerate oral intake, and fever. He changes his pouching system every four days unless there is leakage. He empties his colostomy bag approximately twice aday, especially when the output is liquid. He ensures adequate hydration by drinking plenty of water. PAST MEDICAL HISTORY: History of a heart attack or stroke:No History of abdominal surgery: Yes History of BECKY: No FAMILY HISTORY: Negative for colon rectal cancer SOCIAL HISTORY: Smoking: Current every day smoker (cigarettes) Alcohol: No Substance use no: Reviewed allergies, past medical history, anorectal surgical history and medications. OBJECTIVE DIAGNOSTICS EXAM: INTERPRETATION OF OUTSIDE CT ABDOMEN AND OR PELVIS with IV contrast dated 09/21/2024. COMPARISON: Outside CT 06/18/2015. FINDINGS: -Since 06/18/2015, new scattered locules of free air and mixed air and fluid collection within the central abdomen measuring 7.9 x 6.0 x 5.6 cm. Thickening of the adjacent sigmoid colon with air tracking from the colon . - Associated mild dilation, wall thickening and fat stranding involving the duodenum and loops of proximal jejunum, which is likely represents adynamic ileus. -Additional small fluid collection alongthe inferior aspect of the right hepatic lobe, measuring 10.0 x 7.6 x 3.3 cm , the left paracolic gutter, measuring 10.9 x 6.8 x 1.8 cm ,and left pelvis measuring 5.8 x 3.0 x 2.1 cm. -No abdominopelvic adenopathy by size criteria. Multiple mildly prominent mesenteric lymph nodes are favored to be reactive. -New nodular thickening of the bilateral adrenal glands. Bilateral nonobstructing renal stones. Cholelithiasis. Unremarkable appearance of the liver, pancreas and spleen. -New sclerotic lesion posterior right ilium measuring 1.9 x 1.2 cm (series 2 image 118). IMPRESSION: 1. New free air and complex mixed air and fluid collection within the central abdomen. This is favored to arise from a thickened sigmoid colon, likely related to acute, uncomplicated diverticulitis, however given lack of significant colonic diverticulum, cannot exclude other etiology such as colitis or colonic mass. Could consider follow-up imaging or colonoscopy for further evaluation. 2. Thickened, mildly dilated duodenum and proximal jejunum loops are favored to be reactive and represent adynamic ileus. 3. Bilateral nodular thickening of the bilateral adrenal glands which is new since 2015. This is indeterminant and could be reactive in the setting of abdominal infection. Could consider dedicated adrenal CT for further evaluation. 4. Sclerotic 1.9 cm lesion in the posterior right ilium, which is new since 2015. This is indeterminate but could be related to prior trauma or degenerative changes, however cannot exclude neoplasm. If clinically indicated, could consider pelvic MRI for further evaluation. PHYSICAL EXAMINATION Physical Exam General: Alert, cooperative, no acute distress HEENT: Lips, mucosa, and tongue normal. Normocephalic Neck: Supple, trachea midline. Respiratory: Nonlabored breathing on room air. Anterior and posterior lung agee clear to auscultation bilaterally. Cardiovascular: Regular rate and rhythm Abdomen: Colostomy on left side, skin around the stoma site fibrotic, attempted multiple times and unable to dilate stoma with pinky finger. Bleeding noted with each attempt to dilate stoma with pinky finger. Able to dilate stoma with a Q- tip. Stoma open approximately 1 cm. Musculoskeletal: Normal strength and ROM. Extremities: No peripheral edema Skin: No s rashes or lesions to inspection. Neurologic: Alert and oriented x3. Psychiatric: Cooperative , appropriate affect and mood. ASSESSMENT / PLAN Assessment & Plan Colostomy with stricture Diverticulitis with colostomy Hypertension I had a good conversation with Mr. Filiberto Porter today. His stoma opening is approximately1 cm, and he is requesting for stoma dilation during this office visit. After conversation with [employer] of [facility], the recommendation was for him to contact his local provider to perform his stoma dilation. We discussed the risk of obstruction, and reinforced taking a stool softener even though currently his stool output is liquid. We discussed diverticulosis management and lifestyle changes to prevent recurrence. We discussed the importance of updated medication list and communicating that information to healthcare providers. Patient was instructed to call or portal message requesting an appointment if the problem of persists, worsens or reoccurs in the future. Our appointment number to schedule an return appointment is [phone]. I spent 75 minutes face to face and non-face to face caring for the patient today. documented in this encounter Plan of Treatment Upcoming Encounters Date Type Department Care Team (Latest Contact Info) Description 04/10/2025 9:00 AM CDT Telemedicine Department of Nicotine Dependence, [facility] in [place], [place] [address] [place] [phone] Maria Luisa Cardoza M.A., L.P., C.T.T.S. [address] [place] [phone] 06/15/2025 12:00 PM CERTIFIED TUMOR REGISTRAR Appointment Division of Gastroenterology in [place], [place] [address] [place] [phone] Debbi Elliott APRN, C.N.P., M.S.N. [address] [place] [phone] Discharge Disposition: Home or Self Care Scheduled Referrals Name Type Priority Associated Diagnoses Orde r Schedule Colon and Rectal Surgery - General consult (clinic) Outpatient Referral Routine Diverticulitis Of Small Intestine With Perforation And Abscess Without Bleeding Colostomy Status (HCC) Hypertension Essential Primary Expected: 02/12/2025 (Approximate), Expires: 05/15/2026 documented as of this encounter Visit Diagnoses Diagnosis Diverticulitis Of Small Intestine With Perforation And Abscess Without Bleeding- Primary Colostomy Status (HCC) Hypertension Essential Primary documented in this encounter Care Teams Filer And Sander Relationship Specialty Start Date End Date Elsewhere, Pcp PCP - General Internal Medicine 07/05/22 documented as of this encounter
--- OUTSIDE RECORDS SUMMARY | 2025-02-12 10:16 | XMS_ITS | Encounter Summary ---
Author Organization [facility] Address [address] [place] [address] Care Team Providers Care Employee Relations Assistant Name Role Phone Elsewhere, Pcp Primary Care Provider Unavailabl e Encounter Details Date Type Department Care Team (Latest Contact Info) Description 02/12/2025 10:16 AM CDT - 02/12/2025 11:59 PM CDT Hospital Encounter Department of Laboratory Medicine and Pathology, [facility] in [place], [place] [address] [place] [address] Debbi Elliott, NIRMAL, C.N.P., M.S.N. [address] [place] [phone] Colostomy Status (HCC); Diverticulitis Of Small Intestine With Perforation And Abscess Without Bleeding; Hypertension Essential Primary; Morbid Obesity Body Mass Index 45.0-49.9 Adult (HCC); Nicotine Dependence Cigarettes; Elevated Liver Function Test; Elevated Glucose; Nephrolithiasis; Hyperlipidemia Discharge Disposition: Home or Self Care Social History Tobacco Use Types Packs/Day Years Used Date Smoking Tobacco: Every Day Smokeless Tobacco: Never Alcohol Use Standard Drinks/Week Comments No 0 (1 standard drink = 0.6 oz pur e alcohol) Sex and Gender Information Value Date Recorded Sex Assigned at Not on file 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 12/23/2024 lisinopril-hydroCH LOROthiazide (PRINZIDE,ZESTORET IC) 20-12.5 mg per tablet Take 2 tablets by mouth daily. 180 tablet 3 05/13/2020 polyethylene glycol-electrolyte s (Golytely) 236-22.74-6.74 -5.86 gram solutionIndication s:Colostomy Status (HCC),Diverticulit is Of Small Intestine With Perforation And Abscess Without Bleeding,Hypertens ion Essential Primary,Morbid Obesity Body Mass Index 45.0-49.9 Adult (HCC),Nicotine Dependence Cigarettes,Elevate d Liver Function Test,Elevated Glucose,Nephrolith iasis,Hyperlipidem ia Take first portion of the prep at 4pm the evening before and start second portion 3 to 6 hours before and finish 2 hours prior to report time. 4000 mL 02/02/2025 valsartan-hydroCHL OROthiazide (Diovan-HCT) 320-25 mg per tablet Take 1 tablet by mouth daily. 11/25/2024 documented as of this encounter Plan of Treatment Upcoming Encounters Date Type Department Care Team (Latest Contact Info) Description 04/10/2025 9:00 AM CDT Telemedicine Department of Nicotine Dependence, [facility] in [place], [place] [address] [place] [phone] Maria Luisa Cardoza M.A., L.P., C.T.T.S. [address] [place] [phone] 06/15/2025 12:00 PM HOISTING PILE DRIVING ENGINEER Appointment Division of Gastroenterology in [place], [place] [address] [place] [phone] Debbi Elliott, NIRMAL, C.N.P., M.S.N. [address] [place] [phone] Discharge Disposition: Home or Self Care documented as of this encounter Procedures Procedure Name Priority Date/Time Associated Diagnosis Comments CBC WITHOUT DIFFERENTIAL, B Routine 02/12/2025 10:44 AM CDT Colostomy Status (HCC) Diverticulitis Of Small Intestine With Perforation And Abscess Without Bleeding Hypertension Essential Primary Morbid Obesity Body Mass Index 45.0-49.9 Adult (HCC) Nicotine Dependence Cigarettes Elevated Liver Function Test Elevated Glucose Nephrolithiasis Hyperlipidemia HEMOGLOBIN A1C, B Routine 02/12/2025 10: 44 AM CDT Colostomy Status (HCC) Diverticulitis Of Small Intestine With Perforation And Abscess Without Bleeding Hypertension Essential Primary Morbid Obesity Body Mass Index 45.0-49.9 Adult (HCC) Nicotine Dependence Cigarettes Elevated Liver Function Test Elevated Glucose Nephrolithiasis Hyperlipidemia COMPREHENSIVE METABOLIC PANEL, S/P Routine 02/12/2025 10:44 AM CDT Colostomy Status (HCC) Diverticulitis Of Small Intestine With Perforation And Abscess Without Bleeding Hypertension Essential Primary Morbid Obesity Body Mass Index 45.0-49.9 Adult (HCC) Nicotine Dependence Cigarettes Elevated Liver Function Test Elevated Glucose Nephrolithiasis Hyperlipidemia documented in this encounter Results * (ABNORMAL) Comprehensive Metabolic Panel (02/12/2025 10:44 AM CDT) Potassium, S 3.6 3.6 - 5.2 mmol/L 02/12/2025 11:48 AM CDT DTL Sodium, S 138 135 - 145 mmol/L 02/12/2025 11:48 AM CDT DTL Chloride, S 103 98 - 107 mmol/L 02/12/2025 11:48 AM CDT DTL Bicarbonate, S 23 22 - 29 mmol/L 02/12/2025 11:48 AM CDT DTL Anion Gap 12 7 - 15 02/12/2025 11:48 AM CDT DTL BUN (Blood Urea Nitrogen), S 15 8 - 24 mg/dL 02/12/2025 11:48 AM CDT DTL Creatinine 1.00 0.74 - 1.35 mg/dL 02/12/2025 11:48 AM CDT DTL Estimated GFR (eGFR) >90 >=60 mL/min/BS A 02/12/2025 11:48 AM CDT DTL Comment: Estimated GFR calculated using the 2020 CKD_EPI creatinine equation. Calcium, Total, S 9.2 8.6 - 10.0 mg/dL 02/12/2025 11:48 AM CDT DTL Glucose, S 141(H) 70 - 140 mg/dL 02/12/2025 11:48 AM CDT DTL Protein, Total, S 7.2 6.3 - 7.9 g/dL 02/12/2025 11:48 AM CDT DTL Albumin, S 4.3 3.5 - 5.0 g/dL 02/12/2025 11:48 AM CDT DTL Aspartate Aminotransferase (AST), S 27 8 - 48 U/L 02/12/2025 11:48 AM CDT DTL Alkaline Phosphatase, S 140(H) 40 - 129 U/L 02/12/2025 11:48 AM CDT DTL Alanine Aminotransferase (ALT), S 47 7 - 55 U/L 02/12/2025 11:48 AM CDT DTL Bilirubin, Total, S 0.4 0.0 - 1.2 mg/dL 02/12/2025 11:48 AM CDT DTL Blood (Blood, Venous) 02/12/2025 10:44 AM CDT 02/12/2025 11:06 AM CDT Kb Anglin APRN.N.P., M.S.N. LAB BLOOD ADD-ON Final Result Performing Organization Address City/[facility]/ZIP Co de Phone Number [address] [place] [address] * (ABNORMAL) Hemoglobin A1c (02/12/2025 10:44 AM CDT) Hemoglobin A1c, B 5.8(H) 4.0 - 5.6 % 02/12/2025 11:55 AM CDT DTL Comment: Hemoglobin A1c values of 5.7-6.4 percent indicate an increased risk for developing diabetes mellitus. In diabetic patients, HbA1c goals should be discussed with healthcare provider. Blood (Blood, Venous) 02/12/2025 10:44 AM CDT 02/12/2025 11:09 AM CDT Kb Chaparro APRN.N.P., M.S.N. LAB BLOOD ADD-ON Final Result [facility] [address] [place] [address], [facility] [address] [place] [address] * (ABNORMAL) CBC without Differential (02/12/2025 10:44 AM CDT) Hemoglobin 15.9 13.2 - 16.6 g/dL 02/12/2025 11:40 AM CDT DTL Hematocrit 46.7 38.3 - 48.6 % 02/12/2025 11:40 AM CDT DTL Erythrocytes 5.56 4.35 - 5.65 x10(12)/L 02/12/2025 11:40 AM CDT DTL MCV 84.0 78.2 - 97.9 fL 02/12/2025 11:40 AM CDT DTL RBC Distrib Width 13.6 11.8 - 14.5 % 02/12/2025 11:40 AM CDT DTL Platelet Count 291 135 - 317 x10(9)/L 02/12/2025 11:40 AM CDT DTL Leukocytes 10.9(H) 3.4 - 9.6 x10(9)/L 02/12/2025 11:40 AM CDT DTL Blood (Blood, Venous) 02/12/2025 10:44 AM CDT 02/12/2025 11:09 AM CDT Debbi Elliott APRN, C.N.P., M.S.N. LAB BLOOD ADD-ON Final Result [facility] [address] [place] [address], [facility] [address] [place] [address] documented in this encounter Visit Diagnoses Diagnosis Colostomy Status (HCC) Diverticulitis Of Small Intestine With Perforation And Abscess Without Bleeding Hypertension Essential Primary Morbid Obesity Body Mass Index 45.0-49.9 Adult (HCC) Nicotine Dependence Cigarettes Elevated Liver Function Test Elevated Glucose Nephrolithiasis Hyperlipidemia documented in this encounter Care Teams Employee Relations Assistant Relationship Specialty Start Date End Date Elsewhere, Pcp PCP - General Internal Medicine 07/05/22 documented as of this encounter
--- OUTSIDE RECORDS SUMMARY | 2025-02-19 10:15 | XMS_ITS | Encounter Summary ---
Author Organization [facility] Address [address] [place] [phone] Care Team Providers Care Software Development Advisor Name Role Phone Elsewhere, Pcp Primary Care Provider Unavailabl e Reason for Referral * Outpatient (Routine) - Closed Specialty Diagnoses / Procedures Referred By Latonya pimentel Referred To Contact Diagnoses Colostomy Status (HCC) Diverticulitis Of Small Intestine With Perforation And Abscess Without Bleeding Hypertension Essential Primary Morbid Obesity Body Mass Index 45.0-49.9 Adult (HCC) Nicotine Dependence Cigarettes Elevated Liver Function Test Elevated Glucose Nephrolithiasis Hyperlipidemia Procedures FL Colon Single Contrast NJ XR COLON SINGLE CONTRAST Debbi Elliott APRN, C.N.P., M.S.N. 200 [place] [address] Phone: tel: fax: [facility] Referral ID Status Reason Start Date Expiration Date Visits Re quested Visits Authorized [id number] Closed 02/02/2025 05/05/2026 1 1 Reason for Visit * Outpatient (Routine) - Closed Specialty Diagnoses / Procedures Referred By Latonya pimentel Referred To Contact Diagnoses Colostomy Status (HCC) Diverticulitis Of Small Intestine With Perforation And Abscess Without Bleeding Hypertension Essential Primary Morbid Obesity Body Mass Index 45.0-49.9 Adult (HCC) Nicotine Dependence Cigarettes Elevated Liver Function Test Elevated Glucose Nephrolithiasis Hyperlipidemia Procedures FL Colon Single Contrast NJ XR COLON SINGLE CONTRAST Debbi Elliott APRN, C.N.P., M.S.N. [address] [place] [phone] Phone: tel: fax: [facility] Referral ID Status Reason Start Date Expiration Date Visits Re quested Visits Authorized [id number] Closed 02/02/2025 05/05/2026 1 1 Encounter Details Date Type Department Care Team (Latest Contact Info) Description 02/19/2025 10:15 AM CDT - 02/19/2025 11:59 PM CDT Hospital Encounter Department of Radiology, [facility], in [place], [place] [address] [place] [address] Debbi Elliott APRN, C.N.P., M.S.N. 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 02/18/2025 amLODIPine (Norvasc) 5 mg tablet Take 1 [...] AM CDT Telemedicine Department of Nicotine Dependence, [facility], in [place], [place] [address] [place] [phone] Maria Luisa Cardoza M.A., L.P., C.T.T.S. [address] [place] [phone] 06/15/2025 12:00 PM LOG TUMBLER Appointment Division of Gastroenterology in [place], [place] [address] [place] [phone] Debbi Elliott, NIRMAL, C.N.P., M.S.N. [address] [place] [phone] Discharge Disposition: Home or Self Care documented as of this encounter Procedures Procedure Name Priority Date/Time Associated Diagnosis Comments FL COLON SINGLE CONTRAST RAD - Routine (most inpatients and all outpatients) 02/19/2025 11:06 AM CDT Colostomy Status (HCC) Diverticulitis Of Small Intestine With Perforation And Abscess Without Bleeding Hypertension Essential Primary Morbid Obesity Body Mass Index 45.0-49.9 Adult (HCC) Nicotine Dependence Cigarettes Elevated Liver Function Test Elevated Glucose Nephrolithiasis Hyperlipidemia documented in this encounter Results * FL Colon Single Contrast (02/19/2025 11:06 AM CDT) Anatomical Region Laterality Modality Gastro Intestinal, Abdominal RST LOS, Abdominal ARZ LOS, Abdominal FLA LOS N/A Digital Radiography Impressions 02/19/2025 11:08 AM CDT Single contrast enema with water-soluble contrast. Normal appearance of the rectosigmoid stump without evidence of any leak or stricture. The length of the stump approximately measures 20 cm. Narrative 02/19/2025 11:08 AM CDT EXAM: FL COLON SINGLE CONTRAST COMPARISON: None available Procedure Note Gaby Queen M.B.B.S. - 02/19/2025 EXAM: FL COLON SINGLE CONTRAST COMPARISON: None available IMPRESSION: Single contrast enema with water-soluble contrast. Normal appearance of the rectosigmoid stump without evidence of any leakor stricture. The length of the stump approximately measures 20 cm. Debbi Elliott APRN, C.N.P., M.S.N. IMG FLUORO SCOPY PROCEDURES Final Result documented in this encounter Visit Diagnoses Diagnosis Colostomy Status (HCC) Diverticulitis Of Small Intestine With Perforation And Abscess Without Bleeding Hypertension Essential Primary Morbid Obesity Body Mass Index 45.0-49.9 Adult (HCC) Nicotine Dependence Cigarettes Elevated Liver Function Test Elevated Glucose Nephrolithiasis Hyperlipidemia documented in this encounter Administered Medications Inactive Administered Medications - up to 3 most recent administrations Medication Order MAR Action Action Date Dose Rate Site iohexoL 300 mg iodine/mL solution 600 mL (Omnipaque) 600 mL, rectal, Once in imaging, contrast, Starting on Aurora 02/19/25 at 1105, For 1 dose Given 02/19/2025 11:05 AM CDT 600 mL documented in this encounter Care Teams Software Development Advisor Relationship Specialty Start Date End Date Elsewhere, Pcp PCP - General Internal Medicine 07/05/22 documented as of this encounter
--- OUTSIDE RECORDS SUMMARY | 2025-02-19 14:00 | XMS_ITS | Encounter Summary ---
Author Organization [facility] Address [address] [place] [address] Care Team Providers Care Paper Counter Name Role Phone Elsewhere, Pcp Primary Care Provider Unavailabl e Reason for Referral * Gastrointestinal (Routine) - Closed Specialty Diagnoses / Procedures Referred By Latonya pimentel Referred To Contact Diagnoses Colostomy Status (HCC) Procedures Stomal Therapy Randall Oliveira P.A.-C. 200 [place] [address] Phone: tel: fax: [facility] Referral ID Status Reason Start Date Expiration Date Visits Re quested Visits Authorized [id number] Closed 02/19/2025 05/22/2026 1 1 Reason for Visit * Gastrointestinal (Routine) - Closed Specialty Diagnoses / Procedures Referred By Latonya pimentel Referred To Contact Diagnoses Colostomy Status (HCC) Diverticulitis Of Small Intestine With Perforation And Abscess Without Bleeding Hypertension Essential Primary Morbid Obesity Body Mass Index 45.0-49.9 Adult (HCC) Nicotine Dependence Cigarettes Elevated Liver Function Test Elevated Glucose Nephrolithiasis Hyperlipidemia Procedures Stomal Therapy Debbi Elliott APRN, C.N.P., M.S.N. [address] [place] [address] Phone: tel: fax: [facility] Referral ID Status Reason Start Date Expiration Date Visits Re quested Visits Authorized [id number] Closed 02/02/2025 05/05/2026 1 1 Encounter Details Date Type Department Care Team (Latest Contact Info) Description 02/19/2025 2:00 PM CDT Clinical Support Division of Colon and Rectal Surgery in [place], [place] 200 [place] [address] Debbi Elliott APRN, C.N.P., M.S.N. 200 [place] [phone] Martin Patel R.N. 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 - 02/19/2025 3:14 PM CDT SUBJECTIVE CHIEF COMPLAINT/REASON FOR VISIT Assessment of peristomal skin and pouching system management. HISTORY OF PRESENT ILLNESS Filiberto Porter is a 44 y.o. male seen for an evaluation of pouching system management. Patient stated the pouching system is working well, denied issues with leakage or skin issues. They state the pouching system is usually changed every 4 days. OBJECTIVE Physical Exam 02/19/25 1500 Ostomy Colostomy LLQ No placement date or time found. Placed by External Staff?: Other hospital Type of Ostomy (REQUIRED): Colostomy Location: LLQ Site Assessment Red;Other (Comment) (Stenosed) Stoma Size visible stoma measures about 3/8 Skin Assessment Intact;Other (Comment) (significant thick hypergranulationfrom 2-12 o'clock up to 2cm from the stoma) Applied 4 sticks of Silver Nitrate per Peristomal Skin Protocol [id number]. Patient denies discomfort with application. Skin Care Water Pouching System (Stomal Appliance) Status Changed Changed by Wound fish seiner Pouching System Removed Mia 63741 soft convex wafer cut to 3/4, Coloplast 01113 moldable barrier, Mia 31286 pouch (undermined 2cm circumferentially after 3 days) Pouching System Applied Mia 61097 pre-cut wafer, Coloplast 27986 moldable barrier, [place] 54288 pouch (will trial smaller pre-cut wafer to bring the opening in along with the convexity closer to the stoma) Ongoing management Patient/caregiver Output Description Soft;Stool Discussed potentially also using Mia 04273 as a 'pre-cut' and using just the starter hole as the opening with either Mia 7815 or Coloplast 21271. Additional Ostomy Products for Consideration: #7906 Mia Adapt Stoma powder 1 oz bottle #[id number] Esenta Adhesive Remover Wipes 25/box #7300 [place] Adapt 1 Ostomy Belt- Medium #7299 [place] Adapt 1 Ostomy Belt- Large #7717 Mia M9 Odor Eliminator Drops 8 oz bottle ASSESSMENT / PLAN Patient was in agreement with this plan. Questions answered. Return appointment scheduled per Return Appointment Protocol [id number] for further silver nitrate treatment. documented in this encounter Plan of Treatment Upcoming Encounters Date Type Department Care Team (Latest Contact Info) Description 04/10/2025 9:00 AM CDT Telemedicine Department of Nicotine Dependence, [facility], in [place], [place] [address] [place] [phone] Maria Luisa Cardoza M.A., L.P., C.T.T.S. [address] [place] [phone] 06/15/2025 12:00 PM MACHINE PAINT MIXER Appointment Division of Gastroenterology in [place], [place] [address] [place] [phone] Debbi Elliott APRN, C.N.P., M.S.N. [address] [place] [phone] Discharge Disposition: Home or Self Care documented as of this encounter Procedures Procedure Name Priority Date/Time Associated Diagnosis Comments CRS STOMAL THERAPY Routine 02/19/2025 1:40 PM CDT Colostomy Status (HCC) Diverticulitis Of Small Intestine With Perforation And Abscess Without Bleeding Hypertension Essential Primary Morbid Obesity Body Mass Index 45.0-49.9 Adult (HCC) Nicotine Dependence Cigarettes Elevated Liver Function Test Elevated Glucose Nephrolithiasis Hyperlipidemia documented in this encounter Visit Diagnoses Diagnosis Colostomy Status (HCC)- Primary Diverticulitis Of Small Intestine With Perforation And Abscess Without Bleeding Hypertension Essential Primary Morbid Obesity Body Mass Index 45.0-49.9 Adult (HCC) Nicotine Dependence Cigarettes Elevated Liver Function Test Elevated Glucose Nephrolithiasis Hyperlipidemia documented in this encounter Care Teams Paper Counter Relationship Specialty Start Date End Date Elsewhere, Pcp PCP - General Internal Medicine 07/05/22 documented as of this encounter
--- OUTSIDE RECORDS SUMMARY | 2025-02-27 10:00 | XMS_ITS | Encounter Summary ---
Author Organization [facility] Address [address] [place] [address] Care Team Providers Care Fare Collector Name Role Phone Elsewhere, Pcp Primary Care Provider Unavailabl e Reason for Referral * Outpatient (Routine) - Authorized Specialty Diagnoses / Procedures Referred By Latonya pimentel Referred To Contact Nicotine Dependence Maria Luisa Cardoza M.A., L.P., C.T.T.S. [address] [place] [address] Phone: tel: fax: [facility] Referral ID Status Reason Start Date Expiration Date V isits Requested Visits Authorized [id number] Authorized 02/27/2025 08/29/2026 1 1 Scheduling Instructions Please schedule a 9 am follow-up video for 04-10-25. Reason for Visit * Reason Comments Nicotine Dependence * Outpatient (Routine) - Closed Specialty Diagnoses / Procedures Referred By Latonya pimentel Referred To Contact Pulmonary Medicine / Nicotine Dependence Diagnoses Colostomy Status (HCC) Diverticulitis Of Small Intestine With Perforation And Abscess Without Bleeding Hypertension Essential Primary Morbid Obesity Body Mass Index 45.0-49.9 Adult (HCC) Nicotine Dependence Cigarettes Elevated Liver Function Test Elevated Glucose Nephrolithiasis Hyperlipidemia Debbi Elliott APRN, C.N.P., M.S.N. [address] [place] [address] Phone: tel: fax: [facility] Referral ID Status Reason Start Date Expiration Date Visits Re quested Visits Authorized [id number] Closed 02/02/2025 08/04/2026 1 1 Encounter Details Date Type Department Care Team (Latest Contact Info) Description 02/27/2025 10:00 AM CDT Clinical Support Department of Nicotine Dependence, [facility], in [place], [place] [address] [place] [address] Debbi Elliott APRN, Kb.N.P., M.S.N. [address] [place] [phone] Maria Luisa Cardoza M.A., Mamadou, C.T.T.S. 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 - 02/27/2025 10:00 AM CDT SUBJECTIVE CHIEF COMPLAINT / REASON FOR VISIT Tobacco use disorder HISTORY OF PRESENT ILLNESS Filiberto Porter is a 44 y.o. male who presents to the nicotine dependence center for evaluation and treatment for Tobacco Use Disorder. 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 Tobacco Use History: Patient averages 8-10 cigarettes per day, and usually smokes cigarettes [id number] minutes of waking. Filiberto started using tobacco regularly at the age of 14. He has made 2-5 quitattempts with his longest period of abstinence being . Filiberto has tried stopping using various methods such as cold turkey . Patient reports specific triggers are: after meals, when tired at work, driving, when stressed. Motivation: Filiberto shares that he is somewhat motivated to stop using tobacco at this time. He rates importance of quitting at 5/10 and his confidence in ability to quit at 5-6/10. His reasons to quit are to improve health and to save money. Potential Barriers to Quitting: Lives with individual(s) who uses tobacco. Patient lives with his mother - who also smokes. OBJECTIVE Co-occurring Problems: The patient self-reports he has never received treatment for depression. Substance Use Disorders: The patient self-reported he has never received treatment for alcoholism. Patient states that he has not drank alcohol in years. Fagerstrom Score is 2/10. Carbon monoxide was assessed at 27 ppm Assessment of Medication Contraindications: Patient states no contraindications to nicotine replacement. ASSESSMENT / PLAN 1. Tobacco use disorder. 2. Tobacco dependence counseling: Mr. Porter plans to see if he can begin tapering down on his smoking with the patch and the lozenges. Patient would like to be completely quit from smoking in the next 2 months. Time was spent discussing with the patient the neurobiology of nicotine addiction and the rationalefor using medications to help with cessation. Education was provided on the 6 FDA approved medications for cessation and all questions were answered to the best of my ability. The following is consistent with assessment and patient preference: Nicotine patch: 14 mg Initial doses for 4-6 weeks then taper dose in 7 to 14 mg steps every 2 to 4 weeks based on patient's report of withdrawal symptoms, urges, and comfort. Adverse effects may include nausea (reduce patch dosage), local patch reaction such as redness or itching (use of topical hydrocortisone cream and rotating patch can reduce local reaction), severe site reaction (e.g. edema, blistering) Nicotine mini lozenge: 2 mg 1-2 mini lozenges every 1-2 hours as needed to control craving. Adverseeffects may include mouth soreness, nausea (which tends to lessen over time, though dose should be reduced if nausea develops). Medication plan is within approved guidelines and patient was screened for contraindications BEHAVIORAL PLAN: Cognitive and behavorial techniques for coping with urges to smoke were reviewed as well as planning for triggers, changing routines and getting support. Strategies such as suckers, distraction , keep hands busy, deep breathing, drink some water, and use NRT were discussed to help manage urges and cravings. We worked together using the book entitled: My Smoke-Free Future. Follow Up: I encouraged Filiberto Porter to contact me with any questions or concerns. The patient was provided with the following education materials: My Smoke Free Future (QV8733) and Medications to Help You Stop Using Tobacco (PQ4139) as well as the [facility] contact information. As follow-up video has been scheduled for 04-10-25. Patient is ready to learn, no apparant barriers to learning were identified. Patient understands and agrees with plan. 30 minutes of our visit was spent on tobacco use disorder counseling. Maria Luisa Cardoza M.A., Mamadou, C.T.T.S. 02/27/2025 10:50 AM CDT documented in this encounter Plan of Treatment Upcoming Encounters Date Type Department Care Team (Latest Contact Info) Description 04/10/2025 9:00 AM CDT Telemedicine Department of Nicotine Dependence, [facility] in [place], [place] [address] [place] [phone] Maria Luisa Cardoza M.A., Andrei., C.T.T.S. [address] [place] [phone] 06/15/2025 12:00 PM MEASUREMENT AND SENSING TECHNICIAN Appointment Division of Gastroenterology in [address] [phone] Debbi Elliott APRN, C.N.P., M.S.N. [address] [place] [phone] Discharge Disposition: Home or Self Care Scheduled Referrals Name Type Priority Associated Diagnoses Order Schedule Nicotine Dependence office visit (clinic) Outpatient Referral Routine Expected: 04/10/2025 (Approximate), Expires: 05/29/2026 documented as of this encounter Visit Diagnoses Diagnosis Nicotine Dependence Cigarettes- Primary documented in this encounter Care Teams Fare Collector Relationship Specialty Start Date End Date Elsewhere, Pcp PCP - General Internal Medicine 07/05/22 documented as of this encounter
--- OUTSIDE RECORDS SUMMARY | 2025-02-27 12:39 | XMS_ITS | Encounter Summary ---
Author Organization [facility] Address [address] [place] [address] Care Team Providers Care Checker Loader Name Role Phone Elsewhere, Pcp Primary Care Provider Unavailabl e Reason for Referral * MRI/CAT/PET Scan (Routine) - Closed Specialty Diagnoses / Procedures Referred By Latonya pimentel Referred To Contact Radiology Diagnoses Colostomy Status (HCC) Diverticulitis Of Small Intestine With Perforation And Abscess Without Bleeding Hypertension Essential Primary Morbid Obesity Body Mass Index 45.0-49.9 Adult (HCC) Nicotine Dependence Cigarettes Elevated Liver Function Test Elevated Glucose Nephrolithiasis Hyperlipidemia Procedures CT Abdomen Pelvis with IV Contrast CT Abdomen Pelvis without IV Contrast Debbi Elliott APRN, C.N.P., M.S.N. [address] [place] [phone] Phone: tel: fax: [facility] Referral ID Status Reason Start Date Expiration Date Visits Re quested Visits Authorized [id number] Closed 02/02/2025 05/05/2026 1 1 Reason for Visit * MRI/CAT/PET Scan (Routine) - Closed Specialty Diagnoses / Procedures Referred By Latonya pimentel Referred To Contact Radiology Diagnoses Colostomy Status (HCC) Diverticulitis Of Small Intestine With Perforation And Abscess Without Bleeding Hypertension Essential Primary Morbid Obesity Body Mass Index 45.0-49.9 Adult (HCC) Nicotine Dependence Cigarettes Elevated Liver Function Test Elevated Glucose Nephrolithiasis Hyperlipidemia Procedures CT Abdomen Pelvis with IV Contrast CT Abdomen Pelvis without IV Contrast Debbi Elliott APRN, C.N.P., M.S.N. 200 [place] [address] Phone: tel: fax: [facility] Referral ID Status Reason Start Date Expiration Date Visits Re quested Visits Authorized [id number] Closed 02/02/2025 05/05/2026 1 1 Encounter Details Date Type Department Care Team (Latest Contact Info) Description 02/27/2025 12:39 PM CDT - 02/27/2025 11:59 PM CDT Hospital Encounter Department of Radiology, [facility], in [place], [place] [address] [place] [address] Debbi Elliott APRN, C.N.P., M.S.N. 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 02/18/2025 amLODIPine (Norvasc) 5 mg tablet Take 1 tablet by mouth daily. 12/23/2024 lisinopril-hydroC HLOROthiazide (PRINZIDE,ZESTORE TIC) 20-12.5 mg per tablet Take 2 tablets by mouth daily. 180 tablet 3 05/13/2020 nicotine (Nicoderm CQ) 14 mg/24 hr patch Apply 14 mg patch daily for four to six weeks, then taper to 7 mg for two to six weeks until off. 14 patch 3 02/27/2025 nicotine (Nicoderm CQ) 7 mg/[address] 1 patch on the skin daily for 30 days. Apply 14 mg patch daily for four to six weeks, then taper to 7 mg for two to six weeks until off. 14 patch 5 02/27/2025 5 nicotine polacrilex (Nicorette) 2 mg lozenge Apply 1 lozenge (2 mg total) to cheek as needed for smoking cessation (Every 1-2 hours as need for cravings and withdrawl symptoms.) for up to 30 days. 100 each 3 02/27/2025 5 polyethylene glycol-electrolyt es (Golytely) 236-22.74-6.74 -5.86 gram solutionIndicatio ns:Colostomy Status (HCC),Diverticuli tis Of Small Intestine With Perforation And Abscess Without Bleeding,Hyperten emerita Essential Primary,Morbid Obesity Body Mass Index 45.0-49.9 Adult (HCC),Nicotine Dependence Cigarettes,Elevat ed Liver Function Test,Elevated Glucose,Nephrolit hiasis,Hyperlipid emia Take first portion of the prep at 4pm the evening before and start second portion 3 to 6 hours before and finish 2 hours prior to report time. 4000 mL 02/02/2025 valsartan-hydroCH LOROthiazide (Diovan-HCT) 320-25 mg per tablet Take 1 tablet by mouth daily. 11/25/2024 documented as of this encounter Plan of Treatment Upcoming Encounters Date Type Department Care Team (Latest Contact Info) Description 04/10/2025 9:00 AM CDT Telemedicine Department of Nicotine Dependence, [facility] in [place], [place] [address] [place] [phone] Maria Luisa Cardoza M.A., L.P., C.T.T.S. [address] [place] [phone] 06/15/2025 12:00 PM ELEMENTARY SCHOOL LIBRARIAN Appointment Division of Gastroenterology in [place], [place] [address] [place] [phone] Debbi Elliott APRN, C.N.P., M.S.N. [address] [place] [phone] Discharge Disposition: Home or Self Care documented as of this encounter Procedures Procedure Name Priority Date/Time Associated Diagnosis Comments CT ABDOMEN PELVIS WITH IV CONTRAST RAD - Routine (most inpatients and all outpatients) 02/27/2025 1:53 PM CDT Colostomy Status (HCC) Diverticulitis Of Small Intestine With Perforation And Abscess Without Bleeding Hypertension Essential Primary Morbid Obesity Body Mass Index 45.0-49.9 Adult (HCC) Nicotine Dependence Cigarettes Elevated Liver Function Test Elevated Glucose Nephrolithiasis Hyperlipidemia documented in this encounter Results * CT Abdomen Pelvis with IV Contrast (02/27/2025 1:53 PM CDT) Anatomical Region Laterality Modality Abdomen, Pelvis, Abdominal R ST LOS, Abdominal ARZ LOS, Abdominal FLA LOS N/A Computed Tomography 02/27/2025 1:48 PM CDT Impressions 02/27/2025 1:51 PM CDT Fluid and gas in the abdomen secondary to perforated small bowel diverticulitis has resolved since 09/21/2024. Small bowel and colon are now normal in appearance and caliber. Narrative 02/27/2025 1:51 PM CDT EXAM: CT ABDOMEN PELVIS WITH IV CONTRAST COMPARISON: Outside CT 09/21/2024, fluoroscopic exam 02/19/2025 FINDINGS: Postoperative changes sigmoidectomy with left lower quadrant end colostomy and rectosigmoid stump. Since the outside CT the gas and fluid collection in the abdomen from small bowel perforation has resolved. The dilated small bowel loops are no longer present. The small bowel and colon to the level of the colostomy is normal in caliber. Scattered colonic diverticulosis. No acute diverticulitis. Small volume of retained barium in the rectosigmoid stump. The liver is normal. Cholelithiasis. The pancreas and spleen are unremarkable. Stable nodules in the adrenal glands likely adenomas. Nonobstructing stones in the kidneys are unchanged in size and position. No other urinary calculi. Tiny renal cysts. Slightly prominent nodes in the root of the mesentery should be reactive in nature. No margy adenopathy in the abdomen or pelvis. Degenerative changes in the spine. No worrisome osseous lesions. Visualized lungs are normal. Procedure Note Davion Pham M.D. - 02/27/2025 EXAM: CT ABDOMEN PELVIS WITH IV CONTRAST COMPARISON: Outside CT 09/21/2024, fluoroscopic exam 02/19/2025 FINDINGS: Postoperative changes sigmoidectomy with left lower quadrantend colostomy and rectosigmoid stump. Since the outside CT the gas and fluid collection in the abdomen fromsmall bowel perforation has resolved. The dilated small bowel loops are nolonger present. The small bowel and colon to the level of the colostomy isnormal in caliber. Scattered colonic diverticulosis. No acute diverticulitis. Small volume of retainedbarium in the rectosigmoid stump. The liver is normal. Cholelithiasis. The pancreas and spleen areunremarkable. Stable nodules in the adrenal glands likely adenomas.Nonobstructing stones in the kidneys are unchanged in size and position.No other urinary calculi. Tiny renal cysts. Slightly prominent nodes in the root of the mesentery should be reactivein nature. No margy adenopathy in the abdomen or pelvis. Degenerative changes in the spine. No worrisome osseous lesions.Visualized lungs are normal. IMPRESSION: Fluid and gas in the abdomen secondary to perforated small boweldiverticulitis has resolved since 09/21/2024. Small bowel and colon arenow normal in appearance and caliber. Debbi Elliott APRN, C.N.P., M.S.N. IMG CT PRO CEDURES Final Result documented in this encounter Visit [...] Action Action Date Dose Rate Site iohexoL 350 mg iodine/mL solution 1-200 mL (Omnipaque) 1-200 mL, intravenous, Once in imaging, contrast, Starting on Sun02/27/25 at 1316, For 1 dose Given 02/27/2025 1:36 PM CDT 200 mL sodium chloride (PF) 0.9 % injection 1-100 mL 1-100 mL, intravenous, Once, On Sun02/27/25 at 1330, For 1 dose, Imaging Protocol Orders, Dose per Radiant Medication Guidelines Given 02/27/2025 1:36 PM CDT 50 mL documented in this encounter Care Teams Checker Loader Relationship Specialty Start Date End Date Elsewhere, Pcp PCP - General Internal Medicine 07/05/22 documented as of this encounter
--- OUTSIDE RECORDS SUMMARY | 2025-02-27 14:45 | XMS_ITS | Encounter Summary ---
Author Organization [facility] Address [address] [place] [address] Care Team Providers Care Manager Bakery Name Role Phone Elsewhere, Pcp Primary Care Provider Unavailabl e Reason for Visit * Gastrointestinal (Routine) - Closed Specialty Diagnoses / Procedures Referred By Latonya pimentel Referred To Contact Diagnoses Colostomy Status (HCC) Procedures Stomal Therapy Randall Oliveira P.A.-C. [address] [place] [phone] Phone: tel: fax: [facility] Referral ID Status Reason Start Date Expiration Date Visits Re quested Visits Authorized [id number] Closed 02/19/2025 05/22/2026 1 1 Encounter Details Date Type Department Care Team (Latest Contact Info) Description 02/27/2025 2:45 PM CDT Clinical Support Division of Colon and Rectal Surgery in [place], [place] [address] [place] [phone] Randall Oliveira P.A.-C. [address] [place] [phone] Sharlene Terry R.N., C.W.O.C.N. 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 - 02/27/2025 2:45 PM CDT SUBJECTIVE CHIEF COMPLAINT/REASON FOR VISIT Assessment of peristomal skin and pouching system management. HISTORY OF PRESENT ILLNESS Filiberto Porter is a 44 y.o. male seen for an evaluation of pouching system management. Patient stated the pouching system is working well, denied issues with leakage or skin issues. They state the pouching system is usually changed every 4 days. Patient's stoma is stenosed and is returning for potential silver nitrate treatment. Patient reports he has his stoma dilated four times, with the most recent time being yesterday (02/26/25). Patient notes the Mia #[id number] precut convex applied at his last appointment leaked hours later. OBJECTIVE Physical Exam Ostomy Colostomy LLQ (Active) Site Assessment Red;Other (Comment) Stoma is stenosed. There is a small amount of bowel visible. Attempted to digitize stoma, but only the tip of WOC RN's pinky finger was able to pass through opening. Stoma Size Visible stoma measures 1-1/4 x 1-3/8 Skin Assessment Other (Comment) Thick hypergranulation tissue circumferentially around the stoma extending out about 2 cm. No bleeding noted from the tissue today. Abdomen retracts circumferentially around stoma when patient engages abdominal muscles. Skin Care Water;Stoma powder;Liquid skin barrier Silver nitrate was not applied today, as no bleeding was noted and did not want to cause further irritation or trauma to the area, considering the stoma was dilated yesterday. Pouching System (Stomal Appliance) Status Changed;Leaking Changed by Wound salt grinder Pouching System Removed Mia #[id number] soft convex wafer, Coloplast #75315 protective seal, Mia #47572 pouch Leaking circumferentially past the moldable barrier edge after 1 day. Patient noted this is not common for him. Pouching System Applied [place] #37314 soft convex wafer, 7815 moldable barrier, Mia #39106dmllr, #7203 1 belt Will continue with current system, as it has worked fairly well for the patient and he has supplies. Added 1 belt for counterpressure to maintain a seal. Ongoing management Patient/caregiver Output Description Stool;Soft Additional Ostomy Products for Consideration: #7906 Mia Adapt Stoma powder 1 oz bottle #[id number] Esenta Adhesive Remover Wipes 25/box #7299 Mia Adapt 1 Ostomy Belt- Large #7717 [place] M9 Odor Eliminator Drops 8 oz bottle ASSESSMENT / PLAN Questions answered. The patient was given updated ordering information. Their prescription is current. Patient's prescription is provided by a local provider. Return appointment scheduled per Return Appointment Protocol [id number]. documented in this encounter Plan of Treatment Upcoming Encounters Date Type Department Care Team (Latest Contact Info) Description 04/10/2025 9:00 AM CDT Telemedicine Department of Nicotine Dependence, [facility] in [place], [place] [address] [place] [phone] Maria Luisa Cardoza M.A., L.P., C.T.T.S. [address] [place] [phone] 06/15/2025 12:00 PM MANAGER DATA WAREHOUSING Appointment Division of Gastroenterology in [place], [place] [address] [place] [phone] Debbi Elliott APRN, C.N.P., M.S.N. [address] [place] [phone] Discharge Disposition: Home or Self Care documented as of this encounter Procedures Procedure Name Priority Date/Time Associated Diagnosis Comments CRS STOMAL THERAPY Routine 02/27/2025 2:30 PM CDT Colostomy Status (HCC) documented in this encounter Visit Diagnoses Diagnosis Colostomy Status (HCC) documented in this encounter Care Teams Manager Bakery Relationship Specialty Start Date End Date Elsewhere, Pcp PCP - General Internal Medicine 07/05/22 documented as of this encounter
--- OUTSIDE RECORDS SUMMARY | 2025-02-27 14:55 | XMS_ITS | Encounter Summary ---
Author Organization [facility] Address [address] [place] [address] Care Team Providers Care Marker Assembler Name Role Phone Elsewhere, Pcp Primary Care Provider Unavailabl e Encounter Details Date Type Department Care Team (Late st Contact Info) Description 02/27/2025 2:55 PM CDT Ancillary Procedure Department of Nursing Social History Tobacco Use Types Packs/Day Years Used Date Smoking Tobacco: Every Day Cigarettes 0.5 20 Smokeless Tobacco: Never Alcohol Use Standard Drinks/Week Comments Never 0 (1 standard drink = 0.6 oz pur e alcohol) Sex and Gender Information Value Date Recorded Sex Assigned at Not on file Legal Sex Male 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 [address] [place] [phone] 06/15/2025 12:00 PM MORTGAGE LOAN OFFICER Appointment Division of Gastroenterology in [place], [place] [address] [place] [phone] Debbi Elliott APRN, C.N.P., M.S.N. [address] [place] [phone] Discharge Disposition: Home or Self Care documented as of this encounter Procedures Procedure Name Priority Date/Time Associated Diagnosis Comments NURSING IMAGE EXAM Routine 02/27/2025 2: 55 PM CDT documented in this encounter Results * Abdomen-Nursing Image Exam (02/27/2025 2:55 PM CDT) 02/27/2025 2:52 PM CDT Narrative [facility] - 02/27/2025 2:55 PM CDT This order has been created and auto-finalized to support the import of images acquired without order. The clinical documentation to support these images can be found on the encounter that produced images. us Provider Not In System IMG NON RAD IMAGING PROCE DURES Final Result [facility] NA documented in this encounter Visit Diagnoses Not on filedocumented in this encounter Care Teams Marker Assembler Relationship Specialty Start Date End Date Elsewhere, Pcp PCP - General Internal Medicine 07/05/22 documented as of this encounter
--- OUTSIDE RECORDS SUMMARY | 2025-03-26 10:30 | XMS_ITS | Encounter Summary ---
Author Organization [facility] Address [address] [place] [phone] Care Team Providers Care School Nurse Name Role Phone Elsewhere, Pcp Primary Care Provider Unavailabl e Reason for Visit * Reason Comments Consult end colostomy take d own * Outpatient (Routine) - Closed Specialty Diagnoses / Procedures Referred By Contac t Referred To Contact Colon and Rectal Surgery Diagnoses Diverticulitis Of Small Intestine With Perforation And Abscess Without Bleeding Colostomy Status (HCC) Hypertension Essential Primary [facility] Gaxiola APRN, C.N.P., D.N.P. 200 [place] [address] Phone: tel: fax: [facility] Referral ID Status Reason Start Date Expiration Date Visits Re quested Visits Authorized [id number] Closed 02/12/2025 08/14/2026 1 1 Encounter Details Date Type Department Care Team (Latest Contact Info) Description 03/26/2025 10:30 AM CDT Comprehensive Visit Division of Colon and Rectal Surgery in [place], [place] [address] [place] [phone] Davion Biggs M.D. 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 - 03/26/2025 10:30 AM CDT Mr. Porter is here today to discuss colostomy reversal. He was seen in our direct [facility]. In brief, he had perforated diverticulitis in August. There was feculent peritonitis. He underwent an exploratory laparotomy with Andrew procedure. He had a prolonged ileus but that has resolved. The patient is seeking scientologist of intestinal continuity. Imaging studies demonstrate he has a residual sigmoid with the rectum. The sigmoid is well above the pelvic brim. On exam: The patient is morbidly obese. His BMI is 47. He does have mild stenosis of the colostomy but it is functional. He has a large midline surgical scar. The scar is well healed there is no evidence of hernia. The patient is continuing to smoke cigarettes. It is less than 2 packs a day. He says he has cut back significantly but he is still smoking multiple cigarettes a day. Impression: Colostomy in the setting of having perforated diverticulitis. Technically there is no reason the patient can not be hooked back up. Ideally, he would lose a significant amount of weight before hand the more importantly, he needs to stop smoking. I would offer scientologist of intestinal continuity despite his weight but he absolutely has to be off of the cigarettes. He would need to be off cigarettes for at least 4-6 weeks. I will test him for nicotine products and told him that if they come back positive I will cancel his operation. He will be meeting with our nicotine cessation team in a few weeks. documented in this encounter Plan of Treatment Upcoming Encounters Date Type Department Care Team (Latest Contact Info) Description 04/10/2025 9:00 AM CDT Telemedicine Department of Nicotine Dependence, [facility], in [place], [place] [address] [place] [phone] Maria Luisa Cardoza M.A., L.P., C.T.T.S. [address] [place] [phone] 06/15/2025 12:00 PM DAY CARE WORKER Appointment Division of Gastroenterology in [place], [place] [address] [place] [phone] Debbi Elliott APRN, C.N.P., M.S.N. [address] [place] [phone] Discharge Disposition: Home or Self Care documented as of this encounter Visit Diagnoses Diagnosis Colostomy Status (HCC)- Primary documented in this encounter Care Teams School Nurse Relationship Specialty Start Date End Date Elsewhere, Pcp PCP - General Internal Medicine 07/05/22 documented as of this encounter
[2025-03-28 13:21] VITALS: BP 184/116; PULSE 95; RESP 20; TEMP 35.7; O2SAT 95; BMI 46.1
--- OUTSIDE RECORDS SUMMARY | 2025-03-28 13:21 | XMS_ITS | Encounter Summary ---
Author Organization [facility] Address [address] [place] [address] Care Team Providers Care Diesel Power Mechanic Name Role Phone Elsewhere, Pcp Primary Care Provider Unavailabl e Reason for Visit * Reason Onset Date Comments Nicotine Dependence 02/27/2025 Encounter Details Date Type Department Care Team (Latest Contact Info) Description 02/27/2025 Clinical Communication Department of Nicotine Dependence, [facility], in [place], [place] [address] [place] [phone] Maria Luisa Cardoza M.A., Andrei., C.T.T.S. 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 - 02/27/2025 10:48 AM CDT 14 mg patch 2 mg mini-lozenge To [place], [place] documented in this encounter Plan of Treatment Upcoming Encounters Date Type Department Care Team (Latest Contact Info) Description 04/10/2025 9:00 AM CDT Telemedicine Department of Nicotine Dependence, [facility], in [place], [place] [address] [place] [phone] Maria Luisa Cardoza M.A., L.P., C.T.T.S. [address] [place] [phone] 06/15/2025 12:00 PM CHEMISTRY PROFESSOR Appointment Division of Gastroenterology in [place], [place] [address] [place] [phone] Debbi Elliott APRN, C.N.P., M.S.N. [address] [place] [phone] Discharge Disposition: Home or Self Care documented as of this encounter Visit Diagnoses Diagnosis Nicotine Dependence Cigarettes- Primary documented in this encounter Care Teams Diesel Power Mechanic Relationship Specialty Start Date End Date Elsewhere, Pcp PCP - General Internal Medicine 07/05/22 documented as of this encounter
--- OUTSIDE RECORDS SUMMARY | 2025-03-28 13:21 | XMS_ITS | Encounter Summary ---
Author Organization [facility] Address [address] [place] [id number] Care Team Providers Care Global Category Manager Name Role Phone Elsewhere, Pcp Primary Care Provider Unavailabl e Encounter Details Date Type Department Care Team ( Contact Info) Description 02/12/2025 Orders Only Division of Colon and Rectal Surgery in [place], [place] [address] [place] [address] [phone] Naresh Hayes P.A.-C., M.S. [address] [place] [phone] Social History Tobacco Use Types Packs/Day Years Used Date Smoking Tobacco: Every Day Smokeless Tobacco: Never Alcohol Use Standard Drinks/Week Comments No 0 (1 standard drink = 0.6 oz pur e alcohol) Sex and Gender Information Value Date Recorded Sex Assigned at Not on file Legal Sex Male 10:29 AM WINDOWS APPLICATION ADMINISTRATOR Gender Identity Not on file Sexual Orientation Not on file documented as of this encounter Plan of Treatment Upcoming Encounters Date Type Department Care Team (Latest Contact Info) Description 04/10/2025 9:00 AM CDT Telemedicine Department of Nicotine Dependence, [facility], in [place], [place] [address] [place] [address] [phone] Maria Luisa Cardoza M.A., L.P., C.T.T.S. [address] [place] [phone] 06/15/2025 12:00 PM WINDOWS APPLICATION ADMINISTRATOR Appointment Division of Gastroenterology in [place], [place] [address] [place] [phone] Debbi Elliott APRN, C.N.P., M.S.N. [address] [place] [phone] Discharge Disposition: Home or Self Care documented as of this encounter Visit Diagnoses Not on filedocumented in this encounter Care Teams Global Category Manager Relationship Specialty Start Date End Date Elsewhere, Pcp PCP - General Internal Medicine 07/05/22 documented as of this encounter
--- OUTSIDE RECORDS SUMMARY | 2025-03-28 13:22 | XMS_ITS | Clinical Summary ---
Author Organization [facility] Address [address] [place] [address] Care Team Providers Care Public Health Technologist Name Role Phone Elsewhere, Pcp Primary Care Provider Unavailabl e Source Comments Patient records contain information from all sites at [facility]. For routine questions regarding patient records, call [phone] during business hours, M-F 8:00 AM - 5:00 PM Central Time. Record requests for emergency care only can be directed to [phone] at any time.[facility] Allergies No known active allergies Medications lisinopril-hydro CHLOROthiazide (PRINZIDE,ZESTOR ETIC) 20-12.5 mg per tablet Take 2 tablets by mouth daily. 180 tablet 3 0 Active polyethylene glycol-electroly stacia (Golytely) 236-22.74-6.74 -5.86 gram solutionIndicati ons:Colostomy Status (HCC),Diverticul itis Of Small Intestine With Perforation And Abscess Without Bleeding,Hyperte nsion Essential Primary,Morbid Obesity Body Mass Index 45.0-49.9 Adult (HCC),Nicotine Dependence Cigarettes,Pike debbie Liver Function Test,Elevated Glucose,Nephroli thiasis,Hyperlip idemia Take first portion of the prep at 4pm the evening before and start second portion 3 to 6 hours before and finish 2 hours prior to report time. 4000 mL 5 Active amLODIPine (Norvasc) 5 mg tablet Take 1 tablet by mouth daily. 5 Active valsartan-hydroC HLOROthiazide (Diovan-HCT) 320-25 mg per tablet Take 1 tablet by mouth daily. 5 Active nicotine (Nicoderm CQ) 7 mg/[address] 1 patch on the skin daily for 30 days. Apply 14 mg patch daily for four to six weeks, then taper to 7 mg for two to six weeks until off. 14 patch 5 5 03/29/20 25 Active nicotine (Nicoderm CQ) 14 mg/24 hr patch Apply 14 mg patch daily for four to six weeks, then taper to 7 mg for two to six weeks until off. 14 patch 3 5 Active nicotine polacrilex (Nicorette) 2 mg lozenge Apply 1 lozenge (2 mg total) to cheek as needed for smoking cessation (Every 1-2 hours as need for cravings and withdrawl symptoms.) for up to 30 days. 100 each 3 5 03/29/20 25 Active hydroCHLOROthiaz rosalinda (HydroDiuril) 25 mg tablet Take 25 mg by mouth every morning. Active MetamuciL 0.4 gram capsule Take 1 capsule by mouth daily. Active Active Problems Problem Noted Date Diagnosed Date Diverticulitis Of Small Inte kathrin With Perforation And Abscess Without Bleeding 02/02/2025 Colostomy Status 02/02/2025 Nicotine Dependence Cigarettes 02/02/2025 Overview (02/02/2025): 1-2 packs per day Hyperlipidemia 02/02/2025 Elevated Glucose 02/02/2025 Elevated Liver Function Test 02/02/2025 Nephrolithiasis 02/02/2025 Morbid Obesity Body Mass Index 45.0-49.9 Adult 1 08/08/2017 Hypertension Essential Primary 10/27/2015 Overview (11/14/2016): Hypertension (HTN) Essential NOS Encounters Date Type Department Care Team Description 03/26/2025 10:30 AM CDT Comprehensive Visit Division of Colon and Rectal Surgery in [place], [place] [address] [place] [phone] Davion Biggs M.D. Colostomy Status (HCC) (Primary Dx) 02/27/2025 2:55 PM CDT Ancillary Procedure Department of Nursing 02/27/2025 2:45 PM CDT Clinical Support Division of Colon and Rectal Surgery in [place], [place] [address] [place] [phone] Randall Oliveira P.A.-C. Jirsa, Nicole A, R.N., C.W.O.C.N. Colostomy Status (HCC) 02/27/2025 12:39 PM CDT - 02/27/2025 11:59 PM CDT Hospital Encounter Department of Radiology, [facility] in [place], [place] [address] [place] [phone] Debbi Elliott APRN, C.N.P., M.S.N. Colostomy Status (HCC); Diverticulitis Of Small Intestine With Perforation And Abscess Without Bleeding; Hypertension Essential Primary; Morbid Obesity Body Mass Index 45.0-49.9 Adult (HCC); Nicotine Dependence Cigarettes; Elevated Liver Function Test; Elevated Glucose; Nephrolithiasis; Hyperlipidemia Discharge Disposition: Home or Self Care 02/27/2025 10:00 AM CDT Clinical Support Department of Nicotine Dependence, [place], [place] [address] [place] [phone] Debbi Elliott APRN, C.N.P., M.S.N. Maria Luisa Cardoza M.A., L.P., C.T.T.S. Nicotine Dependence Cigarettes (Primary Dx) 02/27/2025 Results Follow-Up Division of Colon and Rectal Surgery in [place], [place] [address] [place] [phone] Traci Solorzano APRN, C.N.P., D.N.P. CT Abdomen Pelvis with IV Contrast 02/27/2025 Clinical Communication Department of Nicotine Dependence, [place], [place] [address] [place] [phone] Maria Luisa Cardoza M.A., L.P., C.T.T.S. Nicotine Dependence 02/19/2025 2:00 PM CDT Clinical Support Division of Colon and Rectal Surgery in [place], [place] [address] [place] [phone] Debbi Elliott APRN, C.N.P., M.S.NMartin Clemons R.N. Colostomy Status (HCC) (Primary Dx); Diverticulitis Of Small Intestine With Perforation And Abscess Without Bleeding; Hypertension Essential Primary; Morbid Obesity Body Mass Index 45.0-49.9 Adult (HCC); Nicotine Dependence Cigarettes; Elevated Liver Function Test; Elevated Glucose; Nephrolithiasis; Hyperlipidemia 02/19/2025 10:15 AM CDT - 02/19/2025 11:59 PM CDT Hospital Encounter Department of Radiology, [facility] in [place], [place] [address] [place] [phone] Debbi Elliott APRN, C.N.P., M.S.N. Colostomy Status (HCC); Diverticulitis Of Small Intestine With Perforation And Abscess Without Bleeding; Hypertension Essential Primary; Morbid Obesity Body Mass Index 45.0-49.9 Adult (HCC); Nicotine Dependence Cigarettes; Elevated Liver Function Test; Elevated Glucose; Nephrolithiasis; Hyperlipidemia Discharge Disposition: Home or Self Care 02/12/2025 10:16 AM CDT - 02/12/2025 11:59 PM CDT Hospital Encounter Department of Laboratory Medicine and Pathology, [facility] in [place], [place] [address] [place] [phone] Debbi Elliott APRN, C.N.Blayne., M.S.N. Colostomy Status (HCC); Diverticulitis Of Small Intestine With Perforation And Abscess Without Bleeding; Hypertension Essential Primary; Morbid Obesity Body Mass Index 45.0-49.9 Adult (HCC); Nicotine Dependence Cigarettes; Elevated Liver Function Test; Elevated Glucose; Nephrolithiasis; Hyperlipidemia Discharge Disposition: Home or Self Care 02/12/2025 8:30 AM CDT Comprehensive Visit Division of Colon and Rectal Surgery in [place], [place] [address] [place] [phone] Traci Solorzano APRN, C.N.P., D.N.P. Diverticulitis Of Small Intestine With Perforation And Abscess Without Bleeding (Primary Dx); Colostomy Status (HCC); Hypertension Essential Primary 02/12/2025 Orders Only Division of Colon and Rectal Surgery in [place], [place] [address] [place] [phone] Naresh Hayes P.A.-C., M.S. 02/02/2025 Orders Only Division of Colon and Rectal Surgery in [place], [place] [address] [place] [phone] Debbi Elliott APRN, C.N.P., M.S.N. Colostomy Status (HCC) (Primary Dx); Diverticulitis Of Small Intestine With Perforation And Abscess Without Bleeding; Hypertension Essential Primary; Morbid Obesity Body Mass Index 45.0-49.9 Adult (HCC); Nicotine Dependence Cigarettes; Elevated Liver Function Test; Elevated Glucose; Nephrolithiasis; Hyperlipidemia 01/24/2025 12:50 AM CDT Ancillary Procedure Department of Radiology in [place], [place] [address] [place] [phone] Debbi Elliott APRN, C.N.P., M.S.N. Diverticulitis Colon; Morbid Obesity Body Mass Index 45.0-49.9 Adult ([facility]) 01/24/2025 Orders Only Division of Colon and Rectal Surgery in [place], [place] [address] [place] [phone] Debbi Elliott APRN C.N.P., M.S.N. Diverticulitis Colon (Primary Dx); Hypertension Essential Primary; Morbid Obesity Body Mass Index 45.0-49.9 Adult (HCC) 01/01/[address] [phone] Shaista Frank M.D. Colostomy Status (HCC) (Primary Dx) from Last 3 Months Immunizations Immunization Administration Dates Next Due Influenza, Unspecified 06/04/2020(Deferred: Vanesa ent decision) RZV (SHINGRIX) 06/04/2020(Deferred: Patient dec meaganon) Tdap 03/01/2016 Family History Medical History Relation Name Comments Hypertension Aunt Diabetes Grandmother Hypertension Grandmother Hypertension Mother Relation Name Status Comments Aunt Grandmother Mother Social History Tobacco Use Types Packs/Day Years Used Date Smoking Tobacco: Every Day Cigarettes 0.5 20 Smokeless Tobacco: Never Tobacco Cessation:Ready to Q uit: No; Counseling Given: Yes Alcohol Use Standard Drinks/Week Comments Never 0 (1 standard drink = 0.6 oz pur e alcohol) Sex and Gender Information Value Date Recorded Sex Assigned at Not on file Legal Sex Male 10:29 AM 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 Gender Identity Not on file Sexual Orientation Not on file Last Filed Vital Signs Vital Sign Reading Time Taken Comments Blood Pressure 151/89 05/13/2020 9:10 AM 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 Pulse 84 05/13/2020 9:10 AM 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 Temperature 36.5 C (97.7 F) 05/13/2020 9:10 AM 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 Respiratory Rate 20 05/13/2020 9:10 AM 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 Oxygen Saturation 96% 05/13/2020 9:10 AM 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 Inhaled Oxygen Concentration - - Weight 145 kg (318 lb 12.6 oz) 03/26/2025 10:57 AM CDT Height 176 cm (5' 9.29) 03/26/2025 10:57 AM CDT Body Mass Index 46.68 03/26/2025 10:57 AM CDT Plan of Treatment Upcoming Encounters Date Type Department Care Team (Latest Contact Info) Description 04/10/2025 9:00 AM CDT Telemedicine Department of Nicotine Dependence, [facility], in [place], [place] [address] [place] [phone] Maria Luisa Cardoza M.A., L.P., C.T.T.S. [address] [place] [phone] 06/15/2025 12:00 PM 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 Appointment Division of Gastroenterology in [place], [place] [address] [place] [phone] Debbi Elliott APRN, C.N.P., M.S.N. [address] [place] [phone] Discharge Disposition: Home or Self Care Health Maintenance Due Date Last Done Comments Cologuard 1978 Colonoscopy 1978 FIT 1978 HIV Screening 1978 Hepatitis C Screening 1978 Office Visit for Blood Pressure Check / Re-check 1978 Hepatitis B Vaccines (1 of 3 - 19+ 3-dose series) 1997 Pneumococcal vaccine (0-49 years) (1 of 2 - PCV) 1997 Lipid (Cholesterol) Screening 06/07/2019 06/07/2018 Depression Screening (Annual PHQ-2) 06/25/2024 COVID-19 Vaccine (1 - 2024- season) 2025 Influenza Vaccine (#1) 2025 Creatinine Level (Kidney Function Test) 02/12/2026 02/12/2025, 05/13/2020, 06/07/2018, Additional history exists Fasting Glucose for Diabetes Screening 02/12/2026 02/12/2025, 02/12/2025, 06/07/2018, Additional history exists Potassium Level 02/12/2026 02/12/2025, 04/25, 06/07/2018, Additional history exists Sodium Level 02/12/2026 02/12/2025, 04/25, 06/07/2018, Additional history exists DTaP,Tdap,and Td Vaccines (2 - Td or Tdap) 03/01/2026 03/01/2016 CT Colonography 02/19/2030 02/19/2025 Colorectal Cancer Screening 02/19/2030 IPV Vaccines Aged Out No longer eligi ble based on patient's age to complete this topic Procedures Procedure Name Priority Date/Time Associated Diagnosis Comments NURSING IMAGE EXAM Routine 02/27/2025 2: 55 PM CDT CRS STOMAL THERAPY Routine 02/27/2025 2: 30 PM CDT Colostomy Status (HCC) CT ABDOMEN PELVIS WITH IV CONTRAST RAD - Routine (most inpatients and all outpatients) 02/27/2025 1:53 PM CDT Colostomy Status (HCC) Diverticulitis Of Small Intestine With Perforation And Abscess Without Bleeding Hypertension Essential Primary Morbid Obesity Body Mass Index 45.0-49.9 Adult (HCC) Nicotine Dependence Cigarettes Elevated Liver Function Test Elevated Glucose Nephrolithiasis Hyperlipidemia CRS STOMAL THERAPY Routine 02/19/2025 1: 40 PM CDT Colostomy Status (HCC) Diverticulitis Of Small Intestine With Perforation And Abscess Without Bleeding Hypertension Essential Primary Morbid Obesity Body Mass Index 45.0-49.9 Adult (HCC) Nicotine Dependence Cigarettes Elevated Liver Function Test Elevated Glucose Nephrolithiasis Hyperlipidemia FL COLON SINGLE CONTRAST RAD - Routine (most inpatients and all outpatients) 02/19/2025 11:06 AM CDT Colostomy Status (HCC) Diverticulitis Of Small Intestine With Perforation And Abscess Without Bleeding Hypertension Essential Primary Morbid Obesity Body Mass Index 45.0-49.9 Adult (HCC) Nicotine Dependence Cigarettes Elevated Liver Function Test Elevated Glucose Nephrolithiasis Hyperlipidemia ECG Routine 02/12/2025 12:43 PM CDT Colostomy Status (HCC) Diverticulitis Of [...] Nephrolithiasis Hyperlipidemia HEMOGLOBIN A1C, B Routine 02/12/2025 10:44 AM CDT Colostomy Status (HCC) Diverticulitis Of Small Intestine With Perforation And Abscess Without Bleeding Hypertension Essential Primary Morbid Obesity Body Mass Index 45.0-49.9 Adult (HCC) Nicotine Dependence Cigarettes Elevated Liver Function Test Elevated Glucose Nephrolithiasis Hyperlipidemia CBC WITHOUT DIFFERENTIAL, B Routine 02/12/2025 10:44 AM CDT Colostomy Status (HCC) Diverticulitis Of Small Intestine With Perforation And Abscess Without Bleeding Hypertension Essential Primary Morbid Obesity Body Mass Index 45.0-49.9 Adult (HCC) Nicotine Dependence Cigarettes Elevated Liver Function Test Elevated Glucose Nephrolithiasis Hyperlipidemia INTERPRETATION OF OUTSIDE CT ABDOMEN AND OR PELVIS RAD - Routine (most inpatients and all outpatients) 01/24/2025 6:36 AM CDT Diverticulitis Colon Morbid Obesity Body Mass Index 45.0-49.9 Adult (HCC) LIPID PANEL, S Routine 06/07/2018 8:53 AM 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 Health Maintenance Examination Adult from Last 3 Months or Most Recently Relevant to Health Maintenance Results * Abdomen-Nursing Image Exam (02/27/2025 2:55 [...] IMAGING PROCE DURES Final Result IIMS NA * CT Abdomen Pelvis with IV Contrast [...] M.S.N. IMG CT PRO CEDURES Final Result * FL Colon Single Contrast (02/19/2025 11:06 [...] COMPARISON: None available Procedure Note Gaby Queen M.B.B.SCris - 02/19/2025 EXAM: FL COLON SINGLE CONTRAST COMPARISON: None available IMPRESSION: Single contrast enema with water-soluble contrast. Normal appearance of the rectosigmoid stump without evidence of any leakor stricture. The length of the stump approximately measures 20 cm. Debbi Elliott APRN, C.N.P., M.S.N. IMG FLUORO SCOPY PROCEDURES Final Result * ECG 12 Lead (02/12/2025 12:43 PM CDT) Ventricular Rate ECG/Min 75 BPM MUSE GA Interval 128 ms MUSE QRSD Interval 128 ms MUSE QT Interval 406 ms MUSE QTC Interval 453 ms MUSE R [place] -34 degrees MUSE T Wave [place] 8 degrees MUSE 02/12/2025 12:4 3 PM CDT 02/12/2025 1:25 PM CDT Impressions MUSE - 02/12/2025 1:25 PM CDT Normal sinus rhythm Left axis deviation Moderate voltage criteria for LVH, may be normal variant Non-specific intra-ventricular conduction delay Nonspecific ST and T wave abnormality When compared with ECG of 27-Oct-2015 09:26, QRS duration has increased Reviewed by BRITTNI Nur Narrative Procedure Note Josias Harmon M.D., Ph.D. - 02/12/2025 IMPRESSION: Normal sinus rhythm Left axis deviation Moderate voltage criteria for LVH, may be normal variant Non-specific intra-ventricular conduction delay Nonspecific ST and T wave abnormality When compared with ECG of 27-Oct-2015 09:26, QRS duration has increased Reviewed by BRITTNI Nur Debbi Elliott APRN, C.N.P., M.S.N. ECG ORDERA BLES Final Result MUSE NA * (ABNORMAL) CBC without Differential (02/12/2025 10:44 [...] C.N.P., M.S.N. LAB BLOOD [place] [address], [facility] [place] [address] * (ABNORMAL) Hemoglobin A1c (02/12/2025 10:44 AM CDT) Pathologist [facility] Hemoglobin A1c, B 5.8(H) 4.0 - 5.6 % 02/12/2025 11:55 AM CDT DTL Comment: Hemoglobin A1c values of 5.7-6.4 percent indicate an increased risk for developing diabetes mellitus. In diabetic patients, HbA1c goals should be discussed with healthcare provider. Blood (Blood, Venous) 02/12/2025 10:44 AM CDT 02/12/2025 11:09 AM CDT us Debbi Elliott APRN, C.N.P., M.S.N. LAB BLOOD ADD-ON Final Result [facility] [address] [place] [address], [facility] DTL [facility] [address] [place] [address] * (ABNORMAL) Comprehensive Metabolic Panel (02/12/2025 10:44 AM CDT) [facility] Potassium, S 3.6 3.6 - 5.2 mmol/L [...] 10:44 AM CDT 02/12/2025 11:06 AM CDT us Debbi Elliott APRN, C.N.P., M.S.N. LAB BLOOD ADD-ON Final Result [facility] [address] [place] [address], [place] DTL [facility] [address] [place] [address] * Interpretation of Outside CT Abdomen and or Pelvis (01/24/2025 6:36 AM CDT) Anatomical Region Laterality Modality Abdomen, Pelvis, Abdominal R ST LOS, Abdominal ARZ LOS, Abdominal FLA LOS, Other N/A Computed Tomography Impressions 01/26/2025 12:41 PM CDT 1. New free air and complex mixed [...] bilateral adrenal glands which is new since 2014. This is indeterminant and could be reactive in the setting of abdominal infection. Could consider dedicated adrenal CT for further evaluation. 4. Sclerotic 1.9 cm lesion in the posterior right ilium, which is new since 2014. This is indeterminate but could be related to prior trauma or degenerative changes, however cannot exclude neoplasm. If clinically indicated, could consider pelvic MRI for further evaluation. Narrative 01/26/2025 12:41 PM CDT EXAM: INTERPRETATION OF OUTSIDE CT ABDOMEN AND OR PELVIS with IV contrast dated 09/21/2024. COMPARISON: Outside CT 06/18/2015. FINDINGS: Since 06/18/2015, new scattered locules of free air and mixed air and fluid collection within the central abdomen measuring 7.9 x 6.0 x 5.6 cm (series 2 image 114; series 4 image 109). Thickening of the adjacent sigmoid colon with air tracking from the colon (series 2 image 115; series 4 image 101)). Associated mild dilation, wall thickening and fat stranding involving the duodenum and loops of proximal jejunum, which is likely represents adynamic ileus. Additional small fluid collection along the inferior aspect of the right hepatic lobe, measuring 10.0 x 7.6 x 3.3 cm (series 2 image 92; series 4 image 105), the left paracolic gutter, measuring 10.9 x 6.8 x 1.8 cm (series 2 image 106; series 4 image 115), and left pelvis measuring 5.8 x 3.0 x 2.1 cm (series 2 image 140; series 4 image 115). No abdominopelvic adenopathy by size criteria. Multiple mildly prominent mesenteric lymph nodes are favored to be reactive. New nodular thickening of the bilateral adrenal glands. Bilateral nonobstructing renal stones. Cholelithiasis. Unremarkable appearance of the liver, pancreas and spleen. New sclerotic lesion posterior right ilium measuring 1.9 x 1.2 cm (series 2 image 118). Procedure Note Rip Pyle M.D., Ph.D. - 01/26/2025 EXAM: INTERPRETATION OF OUTSIDE CT ABDOMEN AND OR PELVIS with IV contrastdated 09/21/2024. COMPARISON: Outside CT 06/18/2015. FINDINGS: Since 06/18/2015, new scattered locules of free air and mixedair and fluid collection within the central abdomen measuring 7.9 x 6.0 x5.6 cm (series 2 image 114; series 4 image 109). Thickening of theadjacent sigmoid colon with air tracking from the colon (series 2 image 115; series 4 image 101)). Associated milddilation, wall thickening and fat stranding involving the duodenum andloops of proximal jejunum, which is likely represents adynamic ileus.Additional small fluid collection along the inferior aspect of the right hepatic lobe, measuring 10.0 x 7.6x 3.3 cm (series 2 image 92; series 4 image 105), the left paracolicgutter, measuring 10.9 x 6.8 x 1.8 cm (series 2 image 106; series 4 ), and left pelvis measuring 5.8 x 3.0 x 2.1 cm (series 2 image 140; series 4 image 115). No abdominopelvic adenopathy by size criteria. Multiple mildly prominentmesenteric lymph nodes are favored to be reactive. New nodular thickening of the bilateral adrenal glands. Bilateralnonobstructing renal stones. Cholelithiasis. Unremarkable appearance ofthe liver, pancreas and spleen. New sclerotic lesion posterior right ilium measuring 1.9 x 1.2 cm (series2 image 118). IMPRESSION: 1. New free air and complex mixed air and fluid collection within thecentral abdomen. This is favored to arise from a thickened sigmoid colon,likely related to acute, uncomplicated diverticulitis, however given lackof significant colonic diverticulum, cannot exclude other etiology such as colitis or colonic mass. Couldconsider follow-up imaging or colonoscopy for further evaluation. 2. Thickened, mildly dilated duodenum and proximal jejunum loops arefavored to be reactive and represent adynamic ileus. 3. Bilateral nodular thickening of the bilateral adrenal glands which isnew since 2015. This is indeterminant and could be reactive in the settingof abdominal infection. Could consider dedicated adrenal CT for furtherevaluation. 4. Sclerotic 1.9 cm lesion in the posterior right ilium, which is newsince 2015. This is indeterminate but could be related to prior trauma ordegenerative changes, however cannot exclude neoplasm. If clinicallyindicated, could consider pelvic MRI for further evaluation. Debbi Elliott APRN, C.N.P., M.S.N. IMG CT PRO CEDURES Final Result * (ABNORMAL) Lipid Panel (06/07/2018 8:53 AM 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) Cholesterol, Total 193 mg/dL 2017 9:56 AM 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 [facility] Comment: ----REFERENCE VALUE---- Desirable: < 200 Borderline high: 200 - 239 High: > or = 240 Triglycerides 179(H) mg/dL 06/07/2018 9:56 AM 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 [facility] Comment: ----REFERENCE VALUE---- Normal: <150 Borderline high: 150-199 High: 200-499 Very high: > or =500 Cholesterol, HDL, S 31(L) >=40 mg/dL 06/07/2018 9:56 AM 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 [facility] Calculated LDL 126 mg/dL 06/07/2018 9:56 AM 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 [facility] Comment: ----REFERENCE VALUE---- Desirable: <100 Above Desirable: 100-129 Borderline high: 130-159 High: 160-189 Very high: > or =190 Cholesterol, Non-HDL, Calculated 162(H) mg/dL 06/07/2018 9:56 AM 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 [facility] Comment: ----REFERENCE VALUE---- Desirable: <130 Above Desirable: 130-159 Borderline high: 160-189 High: 190-219 Very high: > or =220 Blood (Blood, Venous) 06/07/2018 8:53 AM 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 06/07/2018 8:54 AM 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 Charlotte Yoder APRN, C.N.P., D.N.P. LAB BLOOD A DD-ON Final Result Performing Organization Address City/State/[facility] Co de Phone Number [facility] [address] [phone], [facility] from Last 3 Months or Most Recently Relevant to Health Maintenance Insurance [facility] Care Teams Public Health Technologist Relationship Specialty Start Date End Date Elsewhere, Pcp PCP - General Internal Medicine 07/05/22
--- OUTSIDE RECORDS SUMMARY | 2025-03-28 13:22 | XMS_ITS | Encounter Summary ---
Author Organization [facility] Address [address] [place] [id number] Care Team Providers Care Jacquard Loom Weaver Name Role Phone Elsewhere, Pcp Primary Care Provider Unavailabl e Encounter Details Date Type Department Care Team (Late st Contact Info) Description 02/27/2025 Results Follow-Up Division of Colon and Rectal Surgery in [place], [place] [address] [place] [phone] Traci Solorzano APRN, C.N.P., D.N.P. [address] [place] [phone] [address] Abdomen Pelvis with IV Contrast Social History Tobacco Use Types Packs/Day Years Used Date Smoking Tobacco: Every Day Cigarettes 0.5 20 Smokeless Tobacco: Never Alcohol Use Standard Drinks/Week Comments Never 0 (1 standard drink = 0.6 oz pur e alcohol) Sex and Gender Information Value Date Recorded Sex Assigned at Not on file Legal Sex Male 10:29 AM [employer] Gender Identity Not on file Sexual Orientation Not on file documented as of this encounter Miscellaneous Notes * Result Encounter Note - Traci Solorzano APRN, C.N.P., D.N.P. - 02/27/2025 4:34 PM CDT Filiberto Flores, The result of your CT Abdomen Pelvis With IV Contrast on 02/27/25 show your diverticulitis has resolved. You can view this on patient online services. Please contact me with any questions. Traci Solorzano APRN, C.N.P., D.N.P. documented in this encounter Plan of Treatment Upcoming Encounters Date Type Department Care Team (Latest Contact Info) Description 04/10/2025 9:00 AM CDT Telemedicine Department of Nicotine Dependence, [facility], in [place], [place] [address] [place] [phone] Maria Luisa Cardoza M.A., L.P., C.T.T.S. [address] [place] [phone] 06/15/2025 12:00 PM [employer] Appointment Division of Gastroenterology in [place], [place] [address] [place] [phone] Debbi Elliott APRN, Kb.N.P., M.S.N. [address] [place] [phone] Discharge Disposition: Home or Self Care documented as of this encounter Visit Diagnoses Not on filedocumented in this encounter Care Teams Jacquard Loom Weaver Relationship Specialty Start Date End Date Elsewhere, Pcp PCP - General Internal Medicine 07/05/22 documented as of this encounter
--- NOTE | 2025-03-28 13:46 | CRLHL7_ITS ---
For Patients: As a result of the 21st Century Cures Act, medical imaging exams and procedure reports are released immediately into your electronic medical record. You may view this report before your referring provider. If you have questions, please contact your health care provider. INDICATION: Exploratory laparotomy with sigmoidectomy. Stoma not functioning. Hernia repair. TECHNIQUE: Axial intravenously infused CT cuts were performed from above diaphragm to below the ischial tuberosities with the infusion of 150 mL of Isovue-370. COMPARISON: CT scan 09/21/2024. FINDINGS: Since the previous CT, the patient has undergone an the sigmoid colon resection and creation of a left lower quadrant colostomy. The large collection of fluid at the root of mesentery has resolved. There is a small fat containing parastomal hernia. There is no bowel obstruction. The liver, spleen, pancreas, adrenals appear normal. There is a 8 mm nonobstructive calculus within each kidney. There are no ureteral or bladder calculi. The appendix is not inflamed. There are no enlarged retroperitoneal or mesenteric lymph nodes. There is a midline incisional hernia containing fat adjacent to the umbilicus. There is a 3.0 cm fat containing right paramedian ventral hernia superior to the umbilicus (for example see image 88 of series 2) The urinary bladder, seminal vesicles and prostate gland appear normal. There is no iliac or inguinal lymphadenopathy. There are no nodule masses at the lung bases. There are no lytic or sclerotic skeletal lesions. IMPRESSION: 1. Since the previous examination, the patient has undergone a sigmoid colon resection and a left lower quadrant colostomy. There is no bowel obstruction. There is a small fat containing parastomal hernia. 2. The previously noted fluid collection at the root of the mesentery has resolved. 3. Each kidney contains an 8 mm nonobstructive calculus. 4. Small midline incisional hernia containing fat adjacent to the umbilicus. 5. There is a 3.0 cm fat containing right paramedian ventral hernia superior to the umbilicus. Please note that all CT scans at this facility use dose modulation, iterative reconstruction, and/or weight-based dosing when appropriate to reduce radiation dose to as low as reasonably achievable. Dictated by Orlando Zelaya MD @ 03/28/2025 3:05:09 PM (Electronically Signed)
--- NOTE | 2025-03-28 13:49 | ED.GENADULT ---
HPI - General Adult General Chief complaint: Abdominal Pain Stated complaint: Stoma issue Time Seen by Provider: 03/28/25 13:36 History of Present Illness HPI narrative: This 45-year-old male comes in stating that his colostomy bag has not yielded any stool for the past 2 days. He has had a couple dilations in the past. He was at [facility] a couple weeks ago and had testing done there. He does not report any nausea or vomiting. He states that there has been no output into the bag for the past 2 days. He arrives here with normal vital signs. His blood pressure is currently elevated but otherwise no report of fever or other problems. He does not report abdominal pain. Related Data Home Medications ?Medication ?Instructions ?Recorded ?Confirmed amlodipine 10 mg tablet 10 mg PO DAILY 03/28/25 03/28/25 Previous Rx's ?Medication ?Instructions ?Recorded amlodipine 5 mg tablet (Norvasc) 10 mg (2 x 5 mg) PO QDAY #180 tabs 02/03/25 psyllium husk 0.4 gram capsule 0.4 g PO QDAY #30 caps 02/18/25 (Metamucil) hydrochlorothiazide 25 mg tablet 25 mg PO QAM #30 tabs 02/24/25 Allergies Allergy/AdvReac Type Severity Reaction Status Date / Time No Known Drug Allergies Allergy Verified 03/28/25 14:21 Review of Systems Status of ROS: Reports: 10 or more systems reviewed and unremarkable except as noted in History and below Narrative: Constitutional: No fevers, no weight gain or loss. Eyes: No discharge. No vision changes. HENT: No congestion, no sore throat, no ear pain. Cardiovascular: No chest pain, no palpitations. Respiratory: No shortness of breath, no wheezes, no cough. Gastrointestinal: No abdominal pain, no vomiting, no diarrhea. Colostomy bag is not functioning currently. Genitourinary: No dysuria, no hematuria. Musculoskeletal: Normal range of motion. Skin: No rashes, no pruritis. Neurological: No dizziness, weakness, sensory change, speech change. Endo/Heme/Allergies: No bruising or bleeding. No polydipsia. Pysch: no suicidality, no anxiety, no insomnia. All other systems reviewed and are negative. [facility] Medical History (Updated 03/28/25 @ 16:35 by Maxim Fields MD) Hypertension ?I10 - Essential (primary) hypertension (ICD-10) History of adenomatous polyp of colon ?Z86.0101 - Personal history of adenomatous and serrated colon polyps (ICD-10) History of kidney stones (2014) ?Z87.442 - Personal history of urinary calculi (ICD-10) Colostomy in place (09/21/24) ?Z93.3 - Colostomy status (ICD-10) Elevated LFTs ?R79.89 - Other specified abnormal findings of blood chemistry (ICD-10) Blood glucose elevated ?R73.9 - Hyperglycemia, unspecified (ICD-10) Hypokalemia ?E87.6 - Hypokalemia (ICD-10) Obesity ?E66.9 - Obesity, unspecified (ICD-10) Hypertension ?I10 - Essential (primary) hypertension (ICD-10) Surgical History (Updated 10/27/24 @ 09:24 by Maria Gaffney) History of hernia repair ?Z98.890 - Other specified postprocedural states (ICD-10) ?Z87.19 - Personal history of other diseases of the digestive system (ICD-10) S/P exploratory laparotomy (09/21/24) ?Z98.890 - Other specified postprocedural states (ICD-10) Social History Narrative: Patient's mother, Sofya, is here with him. Denies alcohol or recreational drug use. Smokes 1/2ppd Smoking Status: Current every day smoker What tobacco products do you use: cigarettes Years smoked: 0.5 Do you use any of these nicotine containing products: None How often do you have a drink containing alcohol: never AUDIT-C Alcohol total score: 0 Non-prescribed substance use: denies use service: No Exam Narrative: Exam Narrative: Constitutional: Well-developed, well-nourished, no acute distress. HEENT: Normocephalic, atraumatic. Neck: Normal range of motion. Nontender. Supple. Heart: Regular. No murmurs. Normal rate. Intact distal pulses. Lungs: Clear to auscultation. No chest discomfort. No wheezes, rhonchi, or rales. Abdomen: Normal bowel sounds. Nontender. No rebound tenderness. Colostomy bag is empty. No surrounding erythema. Genitalia: Deferred. Back: No midline tenderness. Normal range of motion. Extremities: Normal range of motion. No injury. Skin: Intact. No rash. Warm. No erythema or pallor. Neurologic: No altered sensation. No weakness. Alert and oriented. Psychiatric: No suicidality. No anxiety or depression. No insomnia. Nursing notes and vitals signs are reviewed. Const: Vital Signs, click to edit/add: Vital Signs - 24 hr 03/28/25 13:21 03/28/25 15:48 Temperature 96.2 F L Pulse Rate [Pulse Oximeter] 95 66 Respiratory Rate 20 18 Blood Pressure [Ri t Upper Arm] 184/116 H 197/105 H Pulse Oximetry 95 94 Oxygen Delivery Me thod Room Air Room Air Course Vital Signs Vital signs: Initial Vital Signs Temperature 96.2 F L 03/28/25 13:21 Temperature Source Temporal Artery Scan 03/28/25 13:21 Pulse Rate 95 03/28/25 13:21 Respiratory Rate 20 03/28/25 13:21 Blood Pressure 184/116 H 03/28/25 13:21 Blood Pressure Mean 138 H 03/28/25 13:21 Blood Pressure Position Sitting 03/28/25 13:21 Pulse Oximetry 95 03/28/25 13:21 Oxygen Delivery Method Room Air 03/28/25 13:21 Vital Signs Temperature 96.2 F L 03/28/25 13:21 Pulse Rate 95 03/28/25 13:21 Respiratory Rate 20 03/28/25 13:21 Blood Pressure 184/116 H 03/28/25 13:21 Pulse Oximetry 95 03/28/25 13:21 Oxygen Delivery Method Room Air 03/28/25 13:21 Temperature 96.2 F L 03/28/25 13:21 Pulse Rate 66 03/28/25 15:48 Respiratory Rate 18 03/28/25 15:48 Blood Pressure 197/105 H 03/28/25 15:48 Pulse Oximetry 94 03/28/25 15:48 Oxygen Delivery Method Room Air 03/28/25 15:48 Medical Decision Making MDM Narrative Medical decision making narrative: This patient comes in with concern that his colostomy bag is not producing. I did a contact the surgeon on-call here who had dilated his ostomy site in the past. The CT scan is recommended and obtained and shows no intra-abdominal problems or concerns related to his ongoing situation. He is due to have a takedown of his bowel and this is scheduled to happen in 4-6 weeks. I did speak with the colorectal specialist at the [facility] regarding his situation. There is a very clear plan for him that is reasonable to follow at this time. There is no need to accelerate regarding this plan as outlined in the notes in his [facility] visit. The colorectal specialist recommended that he get a dilator for his colostomy through [employer] and daily dilate his ostomy site. I did remove the bag and saw that there was the small amount of the bowel mucosa slightly protruding into the ostomy site and essentially plugging the flow of stool at the time. When I depressed this there was immediate release of gas and a bit of stool. I did gently dilate the ostomy site but it is open to approximately 1 cm. This patient is okay to be discharged home. He can follow up with clinic next week with Dr. Frank if needed. He has plans for follow-up with the [facility] also. Lab Data Labs: Lab Results 03/28/25 Range/Units 14:14 WBC 10.53 (4.50-11.00) K/uL RBC 5.34 (4.30-5.90) m/uL Hgb 15.5 (13.5-17.5) gm/dL Hct 45.1 (37.0-53.0) % MCV 85 (80-100) fL MCH 29 (26-34) pg MCHC 34 (32-36) gm/dL RDW Coeff of Janell 13.7 (11.5-15.5) % Plt Count 279 (140-440) K/uL Neut % (Auto) 65.8 (42.0-72.0) % Lymph % (Auto) 24.5 (20-44) % [place] % (Auto) 7.1 (0.0-11.0) % Eos % (Auto) 1.6 (0.0-7.0) % Baso % (Auto) 0.6 (0.0-3.0) % Neut # (Auto) 6.93 (1.7-7.0) K/uL Lymph # (Auto) 2.58 (0.90-2.90) K/uL [place] # (Auto) 0.70 (0.00-0.90) K/UL Eos # (Auto) 0.17 (0.00-0.50) K/uL Baso # (Auto) 0.06 (0.00-0.30) K/uL Abs Immat Gran (auto) 0.04 (0.00-0.30) K/uL Imm/Tot Granulo (auto) 0.4 % Sodium 137 (135-149) mmol/L Potassium 3.4 L (3.6-5.1) mmol/L Chloride 103 (96-114) mmol/L Carbon Dioxide 26 (20-32) mmol/L Anion Gap 8 (7-15) mEq/L BUN 16 (5-24) mg/dL Creatinine 0.9 (0.5-1.5) mg/dL Estimated Creat Clear 101.47 Estimated GFR 106 ml/min Glucose 107 (60-115) mg/dL Calcium 9.2 (8.4-10.6) mg/dL Imaging Data CT scan - abdomen: Radiologist's impression: 1. Since the previous examination, the patient has undergone a sigmoid colon resection and a left lower quadrant colostomy. There is no bowel obstruction. There is a small fat containing parastomal hernia. 2. The previously noted fluid collection at the root of the mesentery has resolved. 3. Each kidney contains an 8 mm nonobstructive calculus. 4. Small midline incisional hernia containing fat adjacent to the umbilicus. 5. There is a 3.0 cm fat containing right paramedian ventral hernia superior to the umbilicus. Discharge Plan Discharge Clinical Impression: Colostomy in place Patient Disposition: Home, Self-Care Condition: Stable Additional Instructions: It is recommended to purchase a colostomy dilator through [employer] and daily apply this to keep the ostomy site open and functional. Follow-up with colorectal specialist in the [facility] as scheduled or return to clinic here or emergency department if needed. Prescriptions: No Action amlodipine [Norvasc] 5 mg tablet 10 mg PO QDAY Qty: 180 3RF hydrochlorothiazide 25 mg tablet 25 mg PO QAM Qty: 30 3RF amlodipine 10 mg tablet 10 mg PO DAILY psyllium husk [Metamucil] 0.4 gram capsule 0.4 g PO QDAY Qty: 30 0RF Follow Up/Referrals: Mumtaz Lowe MD [Primary Care Provider, Internal Medicine] [facility] Instructions
[2025-03-28 14:28] LABS: Hematocrit* 45.1 % (37.0-53.0); Hemoglobin* 15.5 gm/dL (13.5-17.5); Immature Granulocytes Abs Auto 0.04 K/uL (0.00-0.30); Immature Granulocytes Pct Auto 0.4 %; Lymphocytes Absolute Auto 2.58 K/uL (0.90-2.90); Mean Corpuscular HGB Conc 34 gm/dL (32-36); Mean Corpuscular Hemoglobin 29 pg (26-34); Mean Corpuscular Volume 85 fL (80-100); RDW Coefficient of Variation % 13.7 % (11.5-15.5); Red Blood Count* 5.34 m/uL (4.30-5.90); White Blood Count* 10.53 K/uL (4.50-11.00)
[2025-03-28 14:29] LABS: Slide Review Reflex No
[2025-03-28 15:06] LABS: Chloride* 103 mmol/L (96-114)
[2025-03-28 15:07] LABS: Potassium* 3.4 mmol/L (3.6-5.1); Sodium* 137 mmol/L (135-149)
[2025-03-28 15:09] LABS: Blood Urea Nitrogen* 16 mg/dL (5-24); Creatinine* 0.9 mg/dL (0.5-1.5); Est. Creatinine Clearance* 101.47
[2025-03-28 15:10] LABS: Anion Gap 8 mEq/L (7-15); Calcium* 9.2 mg/dL (8.4-10.6); Carbon Dioxide* 26 mmol/L (20-32); Estimated Glomerular Filt Rate 106 ml/min; Glucose* 107 mg/dL (60-115)
[2025-03-28 15:48] VITALS: BP 197/105; PULSE 66; RESP 18; O2SAT 94
[2025-03-28 17:01] VITALS: BP 197/105; PULSE 66; RESP 18; TEMP 36.4
== END 2025-03-28 17:02 | disposition home or self-care (01) ==
PROVIDERS: Emergency Provider Emergency Medicine Emergency Medical Services; PCP Internal Medicine
DX: K94.09 Other complications of colostomy (principal)
CPT/HCPCS: 36415; 74177; 80048; 85025; 99284; Q9967